=== PATIENT | female | born 1965 | race Caucasian/White ===

== ENCOUNTER 2017-08-21 10:16 | Outpatient (CLI) | payer MEDICARE, MEDICAID ==
--- NOTE | 2017-08-21 12:16 | CT ---
CT ANGIOGRAM OF THE HEAD: Date: 08-21-17 Comparison: 08-10-14 History: History of brain tumor and aneurysm, status post-surgery. History of seizures. Assess for r esidual aneurysm. Technique: Serial axial CT imaging is obtained at 5 mm intervals from vertex through skull base with out contrast. Then, following the intravenous administration of iodinated contrast media, serial axi al CT imaging obtained at 1.25 mm intervals from vertex through skull base. Coronal and sagittal 3D reformatted imaging obtained. FINDINGS: There is evidence of prior right occipital craniotomy, stable. There is no intracranial hemorrhage, midline shift, or mass effect. There is cerebellar volume loss laterally on the right, stable. Imaged paranasal sinuses/mastoid air cells well aerated. No displaced calvarial fracture. Post contrast imaging demonstrates patency of the distal vertebral arteries bilaterally. The left ve rtebral artery is dominant. The basilar artery and its branches are unremarkable. There is no sacula r aneurysm, high grade stenosis, or vascular occlusion involving the posterior circulation. The imaged extracranial ICA is unremarkable bilaterally. There is atherosclerotic calcification invo lving the cavernous segment of the internal carotid artery bilaterally. The A1 segment and M1 segment is patent bilaterally. The ICA bifurcation and MCA bifurcation appears unremarkable bilaterally. Distal LATESHA and MCA branches are patent. There is an aneurysm in the region of the anterior communicating artery, inseparable from the origin of the A2 segment on the right. On axial imaging this aneurysm measures approximately 4-5 mm in AP dimension, 4-5 mm in transverse dimension, and approximately 4 mm in craniocaudal dimension. Its nec k measures in the 3 mm range and its neck appears to span the distal aspect of the right A1 segment and proximal aspect of right A2 segment. When compared to the 2014 examination, this aneurysm measur ed approximately 4-5 mm x 4-5 x 3-4 mm, thus, not significantly changed. No new aneurysm is identified. On the post contrast images, there is a subtle area of rounded extraaxial enhancement abutting the b rocio of the connie laterally on right measuring 6-7 mm. This likely represents residual tumor, as seen on the 10-05-09 brain MRI. There is also a suggestion of abnormal enhancement in the internal audito ry canal on the right, best seen in the region of the porous acoustics, also seen on the prior brain MRI. IMPRESSION: 1. Findings suggesting a stable 4-5 mm aneurysm in the region of the anterior communicating artery j ust right of midline. No interval change when compared to the 2014 examination. 2. Subtle abnormal enhancement in the region of the right internal auditory canal. Nodular focus of enhancement right of midline adjacent to the connie. Findings are probably unchanged when compared to a 10-05-09 MRI. Follow up brain MRI could be performed to better assess probable residual tumor in th is region. POS: JD
[2017-08-21] MEDS ORDERED: Iopamidol 370 76% 100 ML VIAL ONE (13:01)
--- OUTSIDE RECORDS SUMMARY | 2017-08-23 05:16 | XMS | Clinical Summary ---
:1965 Author Organization [facility] Address [address] [place] [phone] Phone Care Team Providers Name Role Phone Arina Anthony Primary Care Provider tel Allergies Not on File Current Medications Not on file Active Problems Not on file Social History Tobacco Use Types Packs/Day Years Used Date Never Assessed Sex Assigned at Date Recorded Not on file Last Filed Vital Signs Not on file Plan of Treatment Date Type Specialty Care Team Description 08/28/2017 Office Visit Neurosurgery Ochoa Godoy MD [address] [place] [id number] Results Not on filefrom Last 3 Months Insurance Payer Benefit Plan / Group Subscriber ID Type Phone Address MEDICARE MEDICARE PART A AND B [id number] Medicare [place], [place] MEDICAID MEDICAID [id number] Medicaid [phone] [place] [id number]
== END 2017-08-21 10:17 | disposition home or self-care (01) ==
LOC: CT 10:16
PROVIDERS: ATTEND Psychiatry & Neurology Neurology
DX: I67.1 Cerebral aneurysm, nonruptured (principal)
CPT/HCPCS: 70496

== ENCOUNTER 2018-09-10 11:45 | Emergency (ER) | payer MEDICARE, MEDICAID ==
[2018-09-10] MEDS ORDERED: diphenhydrAMINE 50 MG/ML VIAL ONE (12:04)
[2018-09-10] MEDS ORDERED: Metoclopramide HCl 10 MG/2 ML VIAL ONE (12:04)
== END 2018-09-10 13:03 | disposition left against medical advice (07) ==
LOC: ERS 11:45
DX: R51 Headache (principal); R11.0 Nausea; G43.909 Migraine, unspecified, not intractable, without status migrainosus; J44.9 Chronic obstructive pulmonary disease, unspecified; I10 Essential (primary) hypertension; F41.9 Anxiety disorder, unspecified; F17.210 Nicotine dependence, cigarettes, uncomplicated; Z79.899 Other long term (current) drug therapy
CPT/HCPCS: 93005; 96365; 96375; J1200; J2765

== ENCOUNTER 2018-11-22 13:59 | Outpatient (CLI) | payer MEDICARE, MEDICAID | END 2018-11-22 14:00 | disposition home or self-care (01) | LOC: ULT 13:59 | PROVIDERS: ATTEND Internal Medicine | DX: I25.10 Atherosclerotic heart disease of native coronary artery without angina pectoris (principal); I08.3 Combined rheumatic disorders of mitral, aortic and tricuspid valves | CPT/HCPCS: 93306 ==

== ENCOUNTER 2019-01-23 15:34 | Emergency (ER) | payer MEDICARE, MEDICAID | END 2019-01-23 16:30 | disposition left against medical advice (07) | LOC: SCSER 15:34 | DX: G43.909 Migraine, unspecified, not intractable, without status migrainosus (principal); Z71.6 Tobacco abuse counseling; J44.9 Chronic obstructive pulmonary disease, unspecified; I10 Essential (primary) hypertension; F41.9 Anxiety disorder, unspecified; F17.210 Nicotine dependence, cigarettes, uncomplicated; Z79.899 Other long term (current) drug therapy; Z79.51 Long term (current) use of inhaled steroids | CPT/HCPCS: 99406 ==

== ENCOUNTER 2019-02-17 09:33 | Outpatient (CLI) | payer MEDICARE, MEDICAID ==
--- NOTE | 2019-02-17 11:41 | RAD ---
Skull radiograph series, less than 4 views CLINICAL HISTORY: MRI clearance FINDINGS: There is evidence of a right craniotomy flap with overlying stabilization hardware. Aneurysm clips project at the anterior suprasellar aspect of the cranial fossa. IMPRESSION: Metallic aneurysm clips project at the skull base. Prior to MR imaging, confirmation of M RI compatibility must be documented. accounting technician has been notified, and arrangements for acquiring documentation are being performed.
== END 2019-02-17 09:34 | disposition home or self-care (01) ==
LOC: MRI 09:33
PROVIDERS: ATTEND Nurse Practitioner Acute Care
DX: G40.209 Localization-related (focal) (partial) symptomatic epilepsy and epileptic syndromes with complex partial seizures, not intractable, without status epilepticus (principal); G43.909 Migraine, unspecified, not intractable, without status migrainosus; I67.1 Cerebral aneurysm, nonruptured; Z98.890 Other specified postprocedural states
CPT/HCPCS: 70250; 70553

== ENCOUNTER 2020-05-14 17:06 | Inpatient (IN) | payer MEDICARE, MEDICAID ==
[~2020-05-14 17:06] MED LIST: Iopamidol-370 76% 500 ML 1 ML ONE
[2020-05-14 18:14] LABS: #Basophils 0.1 thou/uL (0.0-0.2); #Eosinphils 0.1 thou/uL (0.0-0.7); #Lymphocytes 1.2 thou/uL (1.20-3.40); #Monocytes 0.8 thou/uL (0.11-0.59); #Neutrophils 7.3 thou/uL (1.40-6.50); %Basophils 0.6 % (0.0-1.0); %Eosinophils 0.9 % (0.0-10.0); %Lymphocytes 12.4 % (21.0-51.0); %Monocytes 8.5 % (0.0-10.0); %Neutrophils 77.6 % (42.0-75.0); Mean Corpuscular HGB CONC 30.9 g/dL (32.0-36.0); Mean Platelet Volume 6.6 fL (7.4-10.4); Platelet Count 250 thou/uL (130-400); RBC Distribution Width 14.3 % (11.5-14.5); Red Blood Cell (RBC) Count 2.98 mill/uL (4.20-5.40); White Blood Cell (WBC) Count 9.5 thou/uL (4.8-10.8)
[2020-05-14 18:31] LABS: Hypochromia SLIGHT = 6-15 cells (100X) (0-5/hpf); MDiff Complete? YES; Macrocytosis MODERATE=16-30 cells (100X) (0-5/hpf); Platelet Morphology Comment Appears Adequate; Polychromasia SLIGHT = 2-3 cells (100X) (0-2/hpf); Target Cells SLIGHT = 2-5 cells (100X) (0-1/hpf)
--- NOTE | 2020-05-14 18:40 | RAD ---
SINGLE VIEW OF THE CHEST: 05/14/20 COMPARISON: 10/01/14. HISTORY: Decreased oxygen saturation and panic attacks. FINDINGS: Single view of the chest shows a normal sized cardiomediastinal silhouette. There is no evidence of c onsolidation, mass, or pleural effusion. The bones are unremarkable. IMPRESSION: No evidence of acute cardiopulmonary disease. POS: EAA
--- NOTE | 2020-05-14 18:43 | CT ---
CT BRAIN WITHOUT CONTRAST: 05/14/20 COMPARISON: 08/05/14. HISTORY: Oxygen saturation of 43%. Memory loss. TECHNIQUE: Multiple contiguous axial images were obtained in a CT of the brain without contrast. FINDINGS: Postsurgical changes are seen in the right posterior fossa. There are aneurysm clips seen near the sk ull base and postsurgical changes are also seen in the right middle cranial fossa. There is no eviden ce of hydrocephalus, intracranial hemorrhage, or extra-axial fluid collections. No large confluent in farction is seen. The visualized paranasal sinuses and mastoid air cells are well aerated. IMPRESSION: No evidence of acute intracranial abnormality. POS: EAA
[2020-05-14 18:53] LABS: ALT (SGPT) 22 U/L (8-55); AST (SGOT) 31 U/L (5-34); Albumin 3.9 g/dL (3.5-5.0); Alkaline Phosphatase 79 U/L (40-110); Anion Gap 13 mmol/L (10-20); BUN (Urea Nitrogen) 8 mg/dL (9.8-20.1); Bilirubin, Total Less than 0.2 mg/dL (0.2-1.2); Calc. Creatinine Clearance 0 mL/min (70-130); Calcium 8.9 mg/dL (7.8-10.44); Carbon Dioxide 34 mmol/L (22-29); Chloride 94 mmol/L (98-107); Estimated GFR-MDRD 81; Globulin 2.8 g/dL (2.4-3.5); Glucose 137 mg/dL (70-105); Magnesium 1.8 mg/dL (1.6-2.6); Potassium 4.2 mmol/L (3.5-5.1); Protein, Total 6.7 g/dL (6.0-8.3); Sodium 137 mmol/L (136-145)
[2020-05-14 19:25] LABS: Actual Bicarbonate (HCO3a) 39.5 mEq/L (22-28); Analyzer IN Cardio ER; Base Excess (BEa) 8.7 mEq/L (-2.0 to +3.0); Calcium, Ionized (arterial) 1.16 mmol/L (1.12-1.30); Carboxyhemoglobin (COHb) 1.5 gm% (0.0-3.0); Hemoglobin (Hb) 9.4 g/dL (12.0-16.0); O2 Tension (PaO2), arterial 293.2 mmHg (80.0-100.0); Potassium - ABG Lab 3.56 mmol/L (3.70-5.30)
[2020-05-14] MEDS ORDERED: Dexamethasone 10 MG/ML VIAL ONE (19:32)
--- NOTE | 2020-05-14 20:07 | CT ---
CT arteriogram chest with IV contrast and 3-D imaging HISTORY: Chest pain. Dyspnea. COMPARISON: 11/24/2015. FINDINGS: There is good contrast opacification pulmonary arteries and thoracic aorta with normal bran sanchez of the great vessels at the aortic arch. Pulmonary trunk and main pulmonary arteries are mild to moderately distended. Lungs are hyperinflated. No focal mass or infiltrate. Minimal peripheral scarring. No pleural fluid, pneumothorax, or mediastinal adenopathy. IMPRESSION : No CT evidence of pulmonary embolus. CT findings of pulmonary artery hypertension. Pulmonary hyperinflation and other chronic-type finding s are stable
[2020-05-14] MEDS ORDERED: Albuterol 200 PUFF (6.7GM INHALER) ONE (20:12)
[2020-05-14] MEDS ORDERED: Magnesium 2 GM/50 ML BAG (IN WATER) ONE (20:21)
[2020-05-14 21:00] LABS: ALV-art Gradient -230.935 (0-20); CO2 Tension 109.9 mmHg (35.0-45.0); Puncture Site R BRACHIAL; pH, Arterial 7.17 (7.35-7.45)
[2020-05-14 21:02] LABS: Actual Bicarbonate (HCO3a) 30.8 mEq/L (22-28); Analyzer IN Cardio ER; Base Excess (BEa) 3.2 mEq/L (-2.0 to +3.0); Calcium, Ionized (arterial) 1.13 mmol/L (1.12-1.30); Carboxyhemoglobin (COHb) 1.9 gm% (0.0-3.0); Hemoglobin (Hb) 9.6 g/dL (12.0-16.0); O2 Tension (PaO2), arterial 63.5 mmHg (80.0-100.0); Potassium - ABG Lab 3.54 mmol/L (3.70-5.30); pH, Arterial 7.29 (7.35-7.45)
[2020-05-14 21:03] LABS: CO2 Tension 65.6 mmHg (35.0-45.0); Puncture Site R BRACHIAL
[2020-05-14] MEDS ORDERED: Acetaminophen 500 MG TAB ONE (21:08)
[2020-05-14 21:44] LABS: SARS-CoV-2 NAA Rapid Test Not Detected (NotDetected)
[2020-05-14 22:14] LABS: Bilirubin Negative (Negative); Blood, Urine Negative (Negative); Clarity Clear (Clear); Glucose, Urine (Dipstick) Normal (Negative); Ketone, Urine Negative (Negative); Leukocyte Negative Leu/uL (Negative); Nitrite Negative (Negative); Protein, Urine (Dipstick) Negative (Neg-Trace); Specific Gravity, Urine 1.019 (1.002-1.036); Urobilinogen Normal mg/dL (Less than 2)
--- NOTE | 2020-05-14 23:54 | PDOC.HHP ---
Hospitalist HPI - History of Present Illness shortness of breath History of Present Illness: This is a 55 year old female with past medical history of COPD, migraines, seizures, who presented to the ER with shortness of breath. The patient states that she had been feeling short of breath for the past two weeks. She takes spiriva, symbicort and advair daily and states she was compliant with her medicines. She is on multiple pain medications for migraines including hydrocodone and flexeril and went to her PCP today to discontinue these medications, however he sent her to the ER when her oxygen saturation was noted to be around 45%? The patient states that at baseline, she is typically able to walk one block without getting short of breath, but her shortness of breath progressed to at rest. She uses oxygen 2L as needed. She denies fevers, chills , runny nose, sore throat, sick contacts, recent travel history, or change in quality of her chronic cough. She denies productive cough. She denies COVID exposure. She quit smoking three days ago, but previously smoked one pack a day for over thirty years. ED Course: The patient presented to the ER with oxygen saturation of 98% on 2L. She was however noted to have intercostal retractions and diffuse wheezing on presentation. ABG showed a pH of 7.1, and PCO2 of 109. She was placed on BIPAP and given tylenol, 2 grams magnesium, albuterol MDI, 10 mg decadron and 1L of IV fluid. . Repeat ABG showed improvement with pH to 7.3, PCO2 to 65. Chest X ray was normal. CT head was normal. CTA showed pulmonary hypertension and no evidence of PE. The patient's mentation improved significantly and she was weaned down to 6L nasal cannula. Rapid COVID test in the ER was negative Hospitalist ROS - Review of Systems Constitutional: reports: other (weight loss 5 pounds in one month unintentionally). denies: fever, chills ENT: denies: ear pain, ear discharge Respiratory: reports: cough, shortness of breath, wheezing. denies: sputum Cardiovascular: denies: chest pain, palpitations, orthopnea, paroxysmal noc. dyspnea Gastrointestinal: denies: nausea, vomiting, abdominal pain, diarrhea, constipation Genitourinary: denies: dysuria, frequency Musculoskeletal: denies: neck pain, shoulder pain Skin: denies: rash, lesions Neurological: reports: seizures, other (migraines chronic) Hospitalist History - Past Medical History Other Medical History: COPD Seizures Migraines Hypertension Brain tumor removed - Past Surgical History Other Surgical History: Brain aneurysm repair 12/2017 Cholecystectomy Hysterectomy - Family History Other Family History: No hitsory of lung or heart problems in the family - Social History Smoking Status: Former smoker (quit three days ago, see HPI) Alcohol: reports: None Drugs: reports: none Living Situation: With Family (lives with son) - Exam General Appearance: NAD, awake alert General - other findings: patient appears to be thin and malnourished Eye: PERRL, anicteric sclera ENT: normocephalic atraumatic, no oropharyngeal lesions Neck: supple, no JVD Heart: RRR, no murmur, no gallops, no rubs Respiratory - other findings: scattered wheezing right upper lobe, diffusely diminished breath sounds Gastrointestinal: soft, non-tender, non-distended, normal bowel sounds Extremities: no cyanosis, no clubbing, no edema Skin: normal turgor, no lesions, no rashes Neurological: cranial nerve grossly intact, normal sensation to touch, no focal deficits, no new deficit Musculoskeletal: normal tone, normal strength, no muscle wasting Psychiatric: normal affect, normal behavior, A&O x 3, oriented to person, oriented to time Hospitalist Results - Labs Result Diagrams: 05/14/20 18:02 05/14/20 18:17 Lab results: WBC 9.5 thou/uL (4.8-10.8) 05/14/20 18:02 Hgb 11.0 g/dL (12.0-16.0) L 05/14/20 18:02 Hct 35.6 % (36.0-47.0) L 05/14/20 18:02 MCV 119.0 fL (78.0-98.0) H 05/14/20 18:02 Plt Count 250 thou/uL (130-400) 05/14/20 18:02 Neutrophils % 77.6 % (42.0-75.0) H 05/14/20 18:02 ABG pH 7.29 (7.35-7.45) L 05/14/20 20:30 ABG pCO2 65.6 mmHg (35.0-45.0) H* 05/14/20 20:30 ABG pO2 63.5 mmHg (80.0-100.0) L 05/14/20 20:30 Sodium 137 mmol/L (136-145) 05/14/20 18:17 Potassium 4.2 mmol/L (3.5-5.1) 05/14/20 18:17 Chloride 94 mmol/L (98-107) L 05/14/20 18:17 Carbon Dioxide 34 mmol/L (22-29) H 05/14/20 18:17 BUN 8 mg/dL (9.8-20.1) L 05/14/20 18:17 Creatinine 0.74 mg/dL (0.6-1.1) 05/14/20 18:17 Glucose 137 mg/dL (70-105) H 05/14/20 18:17 Lactic Acid 1.5 mmol/L (0.5-2.2) 05/14/20 18:02 Calcium 8.9 mg/dL (7.8-10.44) 05/14/20 18:17 Total Bilirubin Less than 0.2 mg/dL (0.2-1.2) L 05/14/20 18:17 AST 31 U/L (5-34) 05/14/20 18:17 ALT 22 U/L (8-55) 05/14/20 18:17 Alkaline Phosphatase 79 U/L (40-110) 05/14/20 18:17 Troponin I Less than 0.010 ng/mL (< 0.028) 05/14/20 18:17 B-Natriuretic Peptide 114.4 pg/mL (0-100) H 05/14/20 18:02 Serum Total Protein 6.7 g/dL (6.0-8.3) 05/14/20 18:17 Albumin 3.9 g/dL (3.5-5.0) 05/14/20 18:17 Urine Ketones Negative mg/dL (Negative) 05/14/20 22:01 Urine Blood Negative (Negative) 05/14/20 22:01 Urine Nitrite Negative (Negative) 05/14/20 22:01 Ur Leukocyte Esterase Negative Matt/uL (Negative) 05/14/20 22:01 - EKG Interpretation EKG: Q waves in lead III, AVF, V1-V4 Hospitalist H&P A/P - Plan Plan: CT head: no acute disease CTA: no PE. Pulmonary hypertension. Pulmonary hyperinflation Chest Xray: no acute disease This is a 55 year old female with past medical history of COPD on 2L of oxygen, seizures, who presents to the ER with severe shortness of breath, found to be in hypoxic/hypercapneic respiratory failure from COPD exacerbation Acute hypoxic/hypercapneic respiratory failure secondary to COPD exacerbation - she was placed on BIPAP with improvement in her blood gas to pCO2 of 65 and pH 7.3 - will continue IV steroids -utox positive for barbiturates and benzo - currently admitted to CCU since no IMCU beds, but consider transfer to tele if remains stable on nasal cannula - troponin slightly elevated, will check ECHO Chronic migraines - patient is on hydrocodone and flexeril - will hold these medications for now - consider neuro consult in am , pt follows with Dr. Frederick #History of seizures #History of brain aneurysm s/p clipping - continue phenytoin. Dilantin level is normal Macrocytic anemia - Hb 11, MCV 119, check folate/B12/TSH in the am DVT prophylaxis: lovenox Code status: full code
[2020-05-14] MEDS ORDERED: Promethazine 25 MG TAB PO PRN (23:56)
[2020-05-14] MEDS ORDERED: Bacteriostatic Water 30 ML VIAL FS PRN (23:57)
[2020-05-15] MEDS ORDERED: Albuterol Sulfate 1.25 MG/3 ML NEB EZPAP PRN (00:04)
[2020-05-15 00:46] LABS: Medtox Reader # READER 4
[2020-05-15 00:47] LABS: Amphetamine Not Detected (NotDetected); Barbiturates Screen Detected (NotDetected); Benzodiazepine Screen Detected (NotDetected); Cocaine Metabolite Screen Not Detected (NotDetected); Medtox Control Line Valid? VALID (VALID); Methadone Not Detected (NotDetected); Methamphetamine Not Detected (NotDetected); Opiate Screen Not Detected (NotDetected); Oxycodone Screen Not Detected (NotDetected); Phencyclidine (PCP) Not Detected (NotDetected); THC/Cannabinoid Screen Not Detected (NotDetected); Tricyclic Screen Not Detected (NotDetected)
[2020-05-15 01:24] LABS: CKMB 1.9 ng/mL (0-6.6)
[2020-05-15 07:03] LABS: Mean Corpuscular HGB CONC 31.1 g/dL (32.0-36.0); Mean Platelet Volume 5.9 fL (7.4-10.4); Platelet Count 334 thou/uL (130-400); RBC Distribution Width 14.5 % (11.5-14.5); Red Blood Cell (RBC) Count 2.71 mill/uL (4.20-5.40); White Blood Cell (WBC) Count 5.7 thou/uL (4.8-10.8)
[2020-05-15 07:24] LABS: BUN (Urea Nitrogen) 7 mg/dL (9.8-20.1); Calc. Creatinine Clearance 0 mL/min (70-130); Calcium 8.4 mg/dL (7.8-10.44); Estimated GFR-MDRD Greater than 90; Glucose 78 mg/dL (70-105)
[2020-05-15 07:32] LABS: Anion Gap 14 mmol/L (10-20); Carbon Dioxide 35 mmol/L (22-29); Chloride 97 mmol/L (98-107); Sodium 141 mmol/L (136-145)
[2020-05-15] MEDS ORDERED: methylPREDNISolone Sod Succ 40 MG VIAL ONE (07:44)
[2020-05-15] MEDS ORDERED: methylPREDNISolone Sod Succ 40 MG VIAL IVP SCH ×2 (07:45→09:00)
[2020-05-15 07:49] LABS: Thyroid Stimulating Hormone 0.7061 uIU/mL (0.35-4.94)
[2020-05-15] MEDS ORDERED: Acetaminophen 325 MG TAB ONE (12:35)
[2020-05-15] MEDS ORDERED: Ondansetron ODT 4 MG TAB PO PRN (13:03)
[2020-05-15] MEDS ORDERED: Cyclobenzaprine 10 MG TAB PO PRN (13:16)
[2020-05-15] MEDS: Mometasone 200 MCG/Formoterol 5 MCG 120 PUFF INHALER INH SCH ×2 (14:52→19:00)
[2020-05-15] MEDS: HYDROcodone/Acetaminophen 10/325 mg Tablet PO PRN ×2 (15:50→22:37)
[2020-05-15 17:47] VITALS: BMI 13.2
--- NOTE | 2020-05-15 18:59 | PDOC.HOSPP ---
- Subjective Subjective: Seen and examined. Patient states that she is feeling 100% better than when she arrived breathing comfortably on low-flow nasal cannula. Patient initially requiring BiPAP therapy on admission. Patient tells me that she quit smoking four days ago, admitted with COPD exacerbation I have added antibiotics to her steroids to treat COPD exacerbation. CT angiography of the chest was negative for pulmonary embolism. - Objective Vital Signs & Weight: Vital Signs (12 hours) Pulse Resp Pulse Ox 05/15/20 15:12 67 14 100 05/15/20 14:35 100 Weight Weight 70 lb 4.8 oz Result Diagrams: 05/15/20 06:50 05/15/20 06:50 Radiology Reviewed by me: Yes Hospitalist ROS - Review of Systems All other systems reviewed; all pertinent +/- noted in HPI/Subj - Medication Medications: Active Medications Generic Name Dose Route Start Last Admin Trade Name Freq PRN Reason Stop Dose Admin Hydrocodone Bitart/Acetaminophen 1 tab 05/15/20 13:03 05/15/20 15:50 [place] 10/325 PO 1 tab Q6H PRN Administration Moderate to Severe Pain (6-10) Albuterol/Ipratropium 3 ml 05/15/20 07:00 05/15/20 15:12 Duoneb NEB 3 ml [id number] KACEY Administration Levofloxacin 500 mg/ Device 100 mls @ 100 mls/hr 05/15/20 14:00 05/15/20 15: 51 IVPB 100 mls 1400 KACEY Administration Mometasone Furoate/Formoterol Fumar 2 puff 05/15/20 06:30 05/15/20 14:52 Dulera 200 Mcg/5 Mcg Inhaler INH Not Given BID-RT KACEY - Exam General Appearance: NAD, awake alert Eye: PERRL ENT: normocephalic atraumatic, moist mucosa Neck: supple, symmetric, no lymphadenopathy Heart: no murmur, no gallops, no rubs Respiratory: no rales, no ronchi, wheezes (few faint. Poor air movement.) Gastrointestinal: soft, non-tender, non-distended, no guarding, no rigidity Extremities: no edema Skin: no lesions, no rashes Neurological: cranial nerve grossly intact, no focal deficits Musculoskeletal: diffuse muscle atrophy Psychiatric: A&O x 3 Hosp A/P (1) COPD exacerbation Code(s): J44.1 - CHRONIC OBSTRUCTIVE PULMONARY DISEASE W (ACUTE) EXACERBATION Status: Acute (2) Shortness of breath Code(s): R06.02 - SHORTNESS OF BREATH Status: Acute (3) Hypoxia Code(s): R09.02 - HYPOXEMIA Status: Acute (4) Pain Code(s): R52 - PAIN, UNSPECIFIED Status: Acute (5) Seizure Status: Acute - Plan Plan: intermediate medical care floor, stable for downgrade to the medical unit patient is breathing comfortably at her normal level of supplemental O2 IV antibiotics IV steroids continue home inhaled medications as available for formulary breathing treatments continue other home medications as able blood pressure control blood sugar control G.I. prophylaxis DVT prophylaxis
[2020-05-15] MEDS: ALPRAZolam 0.5 MG TAB PO PRN (20:55)
[2020-05-16] MEDS: Mometasone 200 MCG/Formoterol 5 MCG 120 PUFF INHALER INH SCH (06:56)
[2020-05-16 08:04] VITALS: TEMP 98.1
[2020-05-16] MEDS: methylPREDNISolone Sod Succ 40 MG VIAL IVP SCH ×5 (09:39→12:28)
[2020-05-16] MEDS: HYDROcodone/Acetaminophen 10/325 mg Tablet PO PRN (10:55)
[2020-05-16] MEDS: ALPRAZolam 0.5 MG TAB PO PRN (10:55)
[2020-05-16 11:44] VITALS: BP 122/86
--- NOTE | 2020-05-16 15:31 | CON ---
DATE OF CONSULTATION: HISTORY OF PRESENT ILLNESS: Celia Bullard is a 55-year-old cachectic female, who was admitted to the hospital with COPD exacerbation. She is a rather poor historian. She states she came here to have her medicine adjusted. She was smoking until 2 weeks ago at least a pack a day. She has smoked for most of her life. She was found to be hypoxic. Denies any chest pain, chills, or sweats. A chest x-ray on admission was normal. PAST MEDICAL HISTORY: Pertinent for; 1. Chronic headaches. 2. Seizure disorder. 3. COPD. 4. Hypertension. PAST SURGICAL HISTORY: Multiple brain aneurysms, type-2 meningioma, hysterectomy. SOCIAL HISTORY: Lives with . Previously secretarial work, presently disabled. HOME MEDICINES: 1. Trazodone. 2. Prednisone. 3. Keppra 500. 4. Spiriva. 5. Advair 250. 6. Seroquel 300. 7. Dilantin 200 twice a day. 8. Losartan 50. 9. Levaquin 500. 10. Advair 250. 11. Xanax p.r.n. ALLERGIES: TRAMADOL, FENTANYL, MORPHINE. REVIEW OF SYSTEMS: Ten-point negative. PHYSICAL EXAMINATION: VITAL SIGNS: Cachectic female, whose sats are 98% on room air, respiration 20s, pulse 70, temperature 98, blood pressure 120/86. CHEST: Decreased breath sounds without any wheezing. CARDIAC: Normal S1, S2. No gallops. ABDOMEN: No masses. LABORATORY DATA: White count 5000, H and H of 10 and 32, platelet count is normal. Chemistry profile is unremarkable. Bicarb was 35. . BNP is normal. Coronavirus test was negative. She had blood gases done, which shows a pO2 of 63, pCO2 of 65, pH of 7.22. She was placed on BiPAP initially pCO2 was 109, pO2 was 293, pH 7.17 when she arrived to the hospital. IMPRESSION AND PLAN: 1. Smamo-fe-evejeks respiratory failure. 2. End-stage chronic obstructive pulmonary disease with respiratory acidosis. 3. Severe deconditioning. She is on adequate medicine pulmonary geiger, nebulizer 4 times a day, steroids, empiric antibiotics, Dulera. Unfortunately, nothing additional to offer except she is to refrain from smoking. This is a consultation note, 70 minutes, 50% direct patient care. Job ID: [id number]
[2020-05-16] MEDS ORDERED: Mometasone 200 MCG/Formoterol 5 MCG 120 PUFF INHALER INH SCH (18:30)
[2020-05-16] MEDS ORDERED: QUEtiapine Fumarate ER 50 MG TAB PO SCH (21:00)
[2020-05-16] MEDS ORDERED: traZODone HCl 50 MG TAB PO SCH (21:00)
[2020-05-16] MEDS ORDERED: levETIRAcetam 500 MG TAB PO SCH (21:00)
--- NOTE | 2020-05-17 02:55 | DIS ---
DATE OF ADMISSION: 05/14/2020 DATE OF DISCHARGE: 05/16/2020 REASON FOR HOSPITALIZATION: COPD exacerbation. PROCEDURES PERFORMED AND TREATMENTS RENDERED: The patient was admitted to the intermediate medical care floor for shortness of breath requiring BiPAP therapy initially on admission. The patient is a lifelong smoker and she has recently just stopped smoking 3 days prior to admission and she presented with respiratory distress. The patient was identified to have COPD with acute exacerbation and was started on maximum medical therapy. With the addition of antibiotics, steroids, breathing treatments, and supplemental oxygen, the patient had a good recovery. The patient returned to her baseline level of functional status and was recommended safe for discharge by Pulmonology, who evaluated the patient on 05/16/2020. Both Pulmonology and myself stressed the importance of smoking cessation. I explicitly informed her that if she is not able to quit smoking, she will likely suffer from future complications of tobacco, including COPD exacerbations in the future and may even result in a premature . The patient understands these risks and states that she is going to try to quit smoking. The patient having numerous other medical comorbidities, was recommended to continue all of her home medications at her current doses until these can be addressed or weaned off in the outpatient setting by her primary care physician. I sent a prescription for oral antibiotics and oral steroids to her preferred pharmacy. I did give her a refill on albuterol, which she requested. The patient states that she has all other home medications with refills at home. The patient already has home oxygen set up and is back to her baseline oxygen requirements. CONDITION ON DISCHARGE: Stable. SPECIFIC INSTRUCTIONS FOR THE PATIENT/FAMILY: 1. The patient recommended to complete a full course of oral antibiotics, oral steroids, and take all of her breathing medications as directed. 2. The patient is recommended to follow up with primary care physician in the next 5 to 7 days or return to acute care hospital immediately if unable to be seen. 3. The patient is recommended to follow up with Pulmonology in the outpatient setting, Dr. Almeida in the next 2 to 4 weeks. The patient recommended to abstain from tobacco use completely. 4. The patient is recommended to take all other home medications as directed until these can be adjusted by primary care physician in the outpatient setting. 5. The patient recommended to return to acute care hospital immediately if she is unable to comply with any of the previously mentioned steps or if her symptoms return, worsen, or any other new symptoms occur. TIME SPENT: Greater than 38 minutes spent coordinating care and discharge process for this patient. Job ID: [id number]
[2020-05-17] MEDS ORDERED: Losartan 25 MG TAB PO SCH (09:00)
[2020-05-17] MEDS ORDERED: TIOTROPIUM BROMIDE PO SCH (09:00)
== END 2020-05-16 13:35 | disposition home or self-care (01) | DRG 189 ==
LOC: ERS 17:06 → ERHOLD 21:18 → T4-A 05-15 14:35
PROVIDERS: ADMIT Internal Medicine; ATTEND Internal Medicine
PROC: 5A09357 Assistance with Respiratory Ventilation, Less than 24 Consecutive Hours, Continuous Positive Airway Pressure (ICD-10-PCS; principal; 2020-05-14)
DX: J96.21 Acute and chronic respiratory failure with hypoxia (principal); J44.1 Chronic obstructive pulmonary disease with (acute) exacerbation; E87.2 Acidosis; J96.22 Acute and chronic respiratory failure with hypercapnia; Z20.828 Contact with and (suspected) exposure to other viral communicable diseases; G43.909 Migraine, unspecified, not intractable, without status migrainosus; I10 Essential (primary) hypertension; F41.9 Anxiety disorder, unspecified; G40.909 Epilepsy, unspecified, not intractable, without status epilepticus; I27.20 Pulmonary hypertension, unspecified; D53.9 Nutritional anemia, unspecified; R53.81 Other malaise; Z87.891 Personal history of nicotine dependence; Z90.49 Acquired absence of other specified parts of digestive tract; Z71.6 Tobacco abuse counseling; Z90.710 Acquired absence of both cervix and uterus; Z86.69 Personal history of other diseases of the nervous system and sense organs; Z88.5 Allergy status to narcotic agent; Z88.8 Allergy status to other drugs, medicaments and biological substances
CPT/HCPCS: 36415; 70450; 71045; 71275; 80048; 80053; 80185; 80306; 81003; 82553; 82607; 82746; 82805; 83605; 83735; 83880; 84443; 84484; 85025; 85027; 87040; 93005; 94640; 94664; 94760; 96361; 96365; 96375; J1100; J1956; J2920; J3475; J7620; Q9967; U0002

== ENCOUNTER 2020-06-25 05:23 | Inpatient (IN) | payer MEDICARE, MEDICAID, OTHER ==
[2020-06-25 06:33] LABS: #Lymphocytes 0.8 thou/uL (1.20-3.40); #Monocytes 0.6 thou/uL (0.11-0.59); #Neutrophils 5.1 thou/uL (1.40-6.50); %Eosinophils 0.5 % (0.0-10.0); %Lymphocytes 12.5 % (21.0-51.0); %Monocytes 8.7 % (0.0-10.0); %Neutrophils 78.3 % (42.0-75.0); Hemoglobin 12.8 g/dL (12.0-16.0); Mean Corpuscular HGB CONC 30.6 g/dL (32.0-36.0); Mean Corpuscular Hemoglobin 32.7 pg (27.0-31.0); Mean Platelet Volume 7.7 fL (7.4-10.4); Platelet Count 166 thou/uL (130-400); RBC Distribution Width 14.2 % (11.5-14.5); Red Blood Cell (RBC) Count 3.92 mill/uL (4.20-5.40); White Blood Cell (WBC) Count 6.6 thou/uL (4.8-10.8)
[2020-06-25 06:43] LABS: Actual Bicarbonate (HCO3a) 44.4 mEq/L (22-28); Analyzer IN Cardio ER; Base Excess (BEa) 11.6 mEq/L (-2.0 to +3.0); Calcium, Ionized (arterial) 1.21 mmol/L (1.12-1.30); Carboxyhemoglobin (COHb) 6.4 gm% (0.0-3.0); Hemoglobin (Hb) 12.6 g/dL (12.0-16.0); Potassium - ABG Lab 4.06 mmol/L (3.70-5.30)
[2020-06-25 06:49] LABS: ALV-art Gradient -121.715 (0-20); CO2 Tension 119.9 mmHg (35.0-45.0); Puncture Site RBRACH; pH, Arterial 7.19 (7.35-7.45)
[2020-06-25 06:52] LABS: Bilirubin Negative (Negative); Blood, Urine Negative (Negative); Glucose, Urine (Dipstick) Negative (Negative); Ketone, Urine Negative (Negative); Leukocyte Negative (Negative); Nitrite Negative (Negative); Protein, Urine (Dipstick) Trace mg/dL (Neg-Trace); Urobilinogen 0.2 mg/dL (Less than 2)
[2020-06-25 06:53] LABS: Clarity Clear (Clear)
[2020-06-25 06:56] LABS: ALT (SGPT) 15 U/L (8-55); AST (SGOT) 28 U/L (5-34); Albumin 3.3 g/dL (3.5-5.0); Alkaline Phosphatase 89 U/L (40-110); Anion Gap 11 mmol/L (10-20); BUN (Urea Nitrogen) 10 mg/dL (9.8-20.1); Bilirubin, Total 0.2 mg/dL (0.2-1.2); Calc. Creatinine Clearance 0 mL/min (70-130); Calcium 8.3 mg/dL (7.8-10.44); Carbon Dioxide 37 mmol/L (22-29); Chloride 88 mmol/L (98-107); Estimated GFR-MDRD Greater than 90; Globulin 2.1 g/dL (2.4-3.5); Glucose 113 mg/dL (70-105); Potassium 4.4 mmol/L (3.5-5.1); Protein, Total 5.4 g/dL (6.0-8.3); Sodium 132 mmol/L (136-145)
[2020-06-25] MEDS ORDERED: methylPREDNISolone Sod Succ/PF 125 MG/2 ML VIAL ONE (08:06)
[2020-06-25] MEDS ORDERED: Ondansetron PF 4 MG/2 ML Vial IVP PRN (08:09)
--- NOTE | 2020-06-25 08:52 | CT ---
CT OF THE ENRRIQUE WITHOUT CONTRAST: INDICATION: History of seizures. COMPARISON: Prior exam dated 05/14/2020. FINDINGS: No definite acute infarct, hemorrhage, or hydrocephalus is present. The septum pellucidum and third ventricle are midline. The vascular clips seen within the region of the anterior right middle crania l fossa as well as the paraclinoid regions is stable appearing. Craniectomy change involving the rig ht occipital skull is stable appearing. No midline shift is evident. The paranasal sinuses are stephanie r. Mastoid air cells are clear. IMPRESSION: 1. No acute intracranial abnormality. 2. Stable postoperative change as above. POS: BH
--- NOTE | 2020-06-25 09:08 | RAD ---
CHEST 1 VIEW: Date: 06/25/2020 INDICATION: History of seizures and COPD. COMPARISON: Prior exam dated 05/14/2020. FINDINGS: The patient is rotated to the right side, limiting exam. There is COPD change. No consolidation is ev ident. No pleural effusion or pneumothorax evident. No acute osseous abnormality is evident. IMPRESSION: No acute cardiopulmonary abnormality. Stable COPD change. POS: BH
[2020-06-25 09:50] LABS: SARS-CoV-2 NAA Rapid Test Not Detected (NotDetected)
[2020-06-25 11:04] LABS: Actual Bicarbonate (HCO3a) 43.5 mEq/L (22-28); Base Excess (BEa) 12.9 mEq/L (-2.0 to +3.0); Calcium, Ionized (arterial) 1.19 mmol/L (1.12-1.30); Carboxyhemoglobin (COHb) 4.9 gm% (0.0-3.0); Hemoglobin (Hb) 13.1 g/dL (12.0-16.0); O2 Tension (PaO2), arterial 80.2 mmHg (80.0-100.0); Potassium - ABG Lab 4.42 mmol/L (3.70-5.30); pH, Arterial 7.29 (7.35-7.45)
[2020-06-25 11:17] LABS: ALV-art Gradient 89.625 (0-20); CO2 Tension 92.3 mmHg (35.0-45.0); Puncture Site RBRACH
[2020-06-25] MEDS: Famotidine/PF 20 mg/2ml Vial SLOW IVP SCH ×2 (11:30→20:45)
[2020-06-25] MEDS: methylPREDNISolone Sod Succ 40 MG VIAL IVP SCH ×3 (11:30→23:06)
[2020-06-25] MEDS ORDERED: levETIRAcetam In NaCl (Iso-Os) 1,000 MG in Premix Bag 1 BAG IVPB SCH (13:00)
--- NOTE | 2020-06-25 13:57 | CON ---
NEUROLOGY CONSULTATION DATE OF CONSULTATION: 06/25/2020 REASON FOR CONSULTATION: Altered mental status. HISTORY OF PRESENT ILLNESS: Ms. Celia Bullard is a 55-year-old female with medical history significant for seizure disorder, COPD, migraines, hypertension, depression, presented to the emergency room because of altered mental status and shortness of breath. The patient is unable to provide the history and history is obtained from review of the medical records per niece who has been her paper supervisor. She has been acting really confused and altered since morning and there was a concern she may have a seizure .She also has shortness of breath, so the other concern was COPD exacerbation, so EMS were called and she was brought to emergency room for further evaluation. In the emergency room, head CT was done, which was negative for acute intracranial abnormality. EKG showed normal sinus rhythm. She was admitted to CCU for further management of COPD and Neurology was consulted to help with the management of seizures. REVIEW OF SYSTEMS: Unobtainable due to patient's mental status. PAST MEDICAL HISTORY: 1. Seizure disorder. 2. Hypertension. 3. COPD. 4. Migraines. 5. Depression. SOCIAL HISTORY: There is no documented history of alcohol, illegal drug abuse. She lives with son. Denies smoking, illegal drug use. She is a former smoker. ALLERGIES: 1. IOHEXOL. 2. TRAMADOL. 3. FENTANYL. 4. MORPHINE. PAST SURGICAL HISTORY: Brain aneurysm repair in December 2017, cholecystectomy, hysterectomy. PHYSICAL EXAMINATION: VITAL SIGNS: Blood pressure 150/80, pulse 80, respiratory rate 18. CVS: Regular rate and rhythm. CHEST: Clear. ABDOMEN: Soft. NECK: Supple. NEUROLOGIC: Mental status; the patient is alert and oriented to person and place. She is extremely somnolent. She does not follow commands or maintain eye contact. Motor; cranial nerves, pupils 4 mm round and reactive to light. Face symmetric. Tongue midline. Moves neck in both direction. Hearing seems to be intact. Speech is clear. Motor; muscle tone and bulk are normal. Moving all 4 extremities equally and symmetrically. Sensory withdraws to nailbed pressure bilaterally. Cerebellar , did not cooperate with the exam. Gait deferred due to patient's safety reason. DATA REVIEWED: I reviewed the head CT which was negative for acute intracranial pathology. Labs are significant for blood pressure was 114/85, pulse 94, respiratory rate 18. ASSESSMENT AND PLAN: Ms. Celia Bullard is consulted for altered mental status most likely secondary to chronic obstructive pulmonary disease exacerbation; However, breakthrough seizure cannot be ruled out. On review of the patient's home regimen, she takes Keppra 500 mg twice daily and phenytoin 200 mg twice daily. Check phenytoin level. Recommend loading with Keppra 1 g IV now and then switching the home anticonvulsant regimen to IV until cleared by Speech since the patient is extremely somnolent. The anticonvulsant regimen should be Keppra 500 mg IV q.12 and fosphenytoin 200 mg IV q.12. Neuro checks every 4 hours. Ativan 2 mg IV for seizure greater than 2 minutes. Observe seizure precautions. Telemetry. Continue other home medications. Continue medical management per primary team and pulmonology. EEG to rule out underlying seizure activity. We will continue to follow. Thank you for the consult. Job ID: [id number] MTDD
--- NOTE | 2020-06-25 18:08 | CON ---
DATE OF CONSULTATION: HISTORY OF PRESENT ILLNESS: Celia Bullard is a 55-year-old cachectic female, who was seen in the ER with shortness of breath, and apparently, some kind of seizure activity, poor historian, cannot get additional information, she is on BiPAP, and has significant respiratory acidosis. She is in the ICU. Rapid coronavirus test was done, which is negative. PAST MEDICAL HISTORY: COPD, tobacco abuse, hypertension, seizure disorders, migraine, and depression. PAST SURGICAL HISTORY: Otherwise included right intertrochanteric femur fracture surgery and previous cholecystectomy. HOME MEDICATIONS: Include: 1. Xanax. 2. Advair. 3. Hydrocodone. 4. Losartan 50. 5. Dilantin 200. 6. Seroquel 300. 7. . 8. Spiriva. 9. Ventolin. 10. Keppra. 11. Prednisone. 12. Trazodone. ALLERGIES: MULTIPLE; TRAMADOL, FENTANYL, AND MORPHINE. REVIEW OF SYSTEMS: Difficult to obtain. PHYSICAL EXAMINATION: GENERAL: She opens her eyes when we asked her to verbalize. VITAL SIGNS: Blood pressure 120/80, pulse 80, saturations 96%, and respiratory rate 18. CHEST: Decreased breath sounds. No wheezing. CARDIAC: Normal S1, S2. No gallop. ABDOMEN: Soft. NEUROLOGIC: Encephalopathic, but moves all 4 extremities. LABORATORY AND DIAGNOSTIC DATA: White count 6000, H and H 12 and 41, platelet count is normal. PO2 is 200, pCO2 of 190, pH 7.19, this is on 3 L nasal O2. Lytes are normal. Total bicarb was 37. X-ray shows no acute infiltrates. CT brain was negative. IMPRESSION: 1. Acute on chronic respiratory failure. 2. Ongoing tobacco abuse. 3. Marked cachexia. 4. History of seizure disorders. 5. CT brain shows postop changes, otherwise no acute changes. PLAN: Continue BiPAP. Blood gas being ordered. Continue steroids, neb treatments. She becomes more lethargic, she is probably going to get intubated. She has seen Dr. Maya in office and will see early next week. This is a consultation note, 70 minutes, 50% direct patient care. Job ID: [id number]
[2020-06-25] MEDS: Mometasone 200 MCG/Formoterol 5 MCG 120 PUFF INHALER INH SCH (19:02)
[2020-06-25] MEDS: levETIRAcetam 500 MG TAB PO SCH (20:45)
[2020-06-25] MEDS ORDERED: Fosphenytoin Sodium 200 MG in Sodium Chloride 0.9% 50 ML IVPB SCH (21:00)
--- NOTE | 2020-06-25 21:18 | HP ---
CHIEF COMPLAINT: Confusion. HISTORY OF PRESENT ILLNESS: The patient is a 55-year-old female with history of COPD, hypertension, migraines, and seizure disorder, who was sent to the hospital by EMS in a confused state. EMS reported that they were called due to the patient being short of breath and confused this morning. The patient is not a reliable historian at this time. In the ER, the patient was found to be hypoxic and her ABG revealed severe respiratory acidosis with hypercarbia. She was awake enough to tolerate BiPAP. REVIEW OF SYSTEMS: Unable to obtain due to the patient's mental status. PAST MEDICAL HISTORY: As noted above. PAST SURGICAL HISTORY: Unobtainable at this time due to the patient's mental status. SOCIAL HISTORY: The patient does have history of alcohol and drug abuse. ALLERGIES: THE PATIENT IS ALLERGIC TO MULTIPLE MEDICATIONS INCLUDING MORPHINE, TRAMADOL, TORADOL, IV CONTRAST, AND IMITREX. PHYSICAL EXAMINATION: GENERAL: The patient is lethargic, but arousable. HEENT: Head is normocephalic and atraumatic. Extraocular muscles are intact. NECK: Supple. CHEST: Auscultation reveals wheezing bilaterally. CARDIOVASCULAR: Revealed tachycardia with regular rhythm. No murmurs, rubs, or gallops. ABDOMEN: Soft, nontender, nondistended. NEUROLOGIC: Not performed fully due to the patient's inability to participate; however, she is able to move all her upper extremities and her cranial nerves appear to be intact. ASSESSMENT: 1. [id number] respiratory failure with hypercarbia. 2. Respiratory acidosis. 3. Chronic obstructive pulmonary disease exacerbation. 4. Altered mental status, likely due to hypercarbia. 5. History of seizure disorder. PLAN: 1. The patient will be admitted to the intensive care unit. 2. We will continue management with BiPAP and repeat ABG earlier this afternoon. We will also initiate IV Solu-Medrol, scheduled DuoNeb, and IV levofloxacin. We will consult Pulmonology. The patient will be n.p.o. at this time until her mental status improves. Jojo for DVT prophylaxis. Job ID: [id number]
[2020-06-25] MEDS: ALPRAZolam 1 MG TAB PO PRN (21:22)
[2020-06-25] MEDS: traZODone HCl 50 MG TAB PO SCH (21:22)
[2020-06-26 04:45] LABS: Band 1 % (5-11); Hemoglobin 12.3 g/dL (12.0-16.0); Lymphocytes 12 % (21-51); MDiff Complete? YES; Macrocytosis SLIGHT = 6-15 cells (100X) (0-5/hpf); Mean Corpuscular HGB CONC 30.7 g/dL (32.0-36.0); Mean Corpuscular Hemoglobin 32.4 pg (27.0-31.0); Mean Platelet Volume 7.4 fL (7.4-10.4); Monocytes 8 % (0-10); Neutrophil 79 % (42-75); Platelet Count 189 thou/uL (130-400); RBC Distribution Width 14.2 % (11.5-14.5); White Blood Cell (WBC) Count 5.4 thou/uL (4.8-10.8)
[2020-06-26 05:08] LABS: Albumin 3.1 g/dL (3.5-5.0)
[2020-06-26 05:09] LABS: Calcium 8.7 mg/dL (7.8-10.44); Chloride 93 mmol/L (98-107); Potassium 5.3 mmol/L (3.5-5.1); Sodium 136 mmol/L (136-145)
[2020-06-26 05:11] LABS: Globulin 2.4 g/dL (2.4-3.5); Glucose 81 mg/dL (70-105); Protein, Total 5.5 g/dL (6.0-8.3)
[2020-06-26 05:12] LABS: Anion Gap 15 mmol/L (10-20); Bilirubin, Total 0.2 mg/dL (0.2-1.2); Carbon Dioxide 33 mmol/L (22-29)
[2020-06-26 05:13] LABS: Alkaline Phosphatase 86 U/L (40-110)
[2020-06-26 05:14] LABS: BUN (Urea Nitrogen) 9 mg/dL (9.8-20.1); Calc. Creatinine Clearance 51 mL/min (70-130); Estimated GFR-MDRD Greater than 90
[2020-06-26 05:15] LABS: AST (SGOT) 37 U/L (5-34)
[2020-06-26 05:16] LABS: ALT (SGPT) 22 U/L (8-55)
[2020-06-26] MEDS: methylPREDNISolone Sod Succ 40 MG VIAL IVP SCH ×3 (05:30→18:30)
[2020-06-26] MEDS: Mometasone 200 MCG/Formoterol 5 MCG 120 PUFF INHALER INH SCH ×2 (07:28→19:38)
[2020-06-26] MEDS: levETIRAcetam 500 MG TAB PO SCH ×2 (08:19→21:09)
[2020-06-26] MEDS: Famotidine/PF 20 mg/2ml Vial SLOW IVP SCH ×2 (08:19→21:08)
[2020-06-26] MEDS: ALPRAZolam 1 MG TAB PO PRN ×2 (08:23→21:07)
[2020-06-26] MEDS ORDERED: buPROPion 75 MG TAB PO SCH (09:00)
--- NOTE | 2020-06-26 10:30 | PRG ---
DATE OF SERVICE: 06/26/2020 SUBJECTIVE: This morning, she is awake, alert, and responsive. She is better. She is off the BiPAP. OBJECTIVE: VITAL SIGNS: Pulse 68, sats are 96% on 1 L, respiratory rate 20, blood pressure 140/91. CHEST: Decreased breath sounds. No wheezing. CARDIAC: Normal S1, S2. No gallops. ABDOMEN: No masses. IMPRESSION: Acute on chronic respiratory failure with marked respiratory acidosis. She can be transferred out of the ICU. She was told to completely refrain from smoking. She has history of seizure disorder. She is being followed by Neurology. Continue PT and supportive care. Job ID: [id number]
--- NOTE | 2020-06-26 11:56 | EKG ---
Test Reason : Blood Pressure : / mmHG Vent. Rate : 059 BPM Atrial Rate : 059 BPM P-R Int : 146 ms QRS Dur : 076 ms QT Int : 428 ms P-R-T Axes : 079 075 071 degrees QTc Int : 423 ms Sinus bradycardia Possible Left atrial enlargement Anterior infarct , age undetermined Abnormal ECG Confirmed by ABELINO JAMES ([id number]), supervising editor news reel STEPHANIE GONZALEZ ([id number]) on 06/26/2020 11:56:06 AM Referred By: Confirmed By:ABELINO JAMES
[2020-06-26] MEDS ORDERED: hydrALAZINE 20 MG/ML VIAL SLOW IVP PRN (12:23)
[2020-06-26] MEDS ORDERED: Fioricet 325/50/40 mg Tablet PO SCH (12:30)
[2020-06-26 13:46] VITALS: BMI 13.4
--- NOTE | 2020-06-26 18:54 | PDOC.HOSPP ---
- Subjective Subjective: c/o headache, lethargic. pt responded well with BiBAP. no further seizure activity noted. - Objective Vital Signs & Weight: Vital Signs (12 hours) Temp Pulse Resp BP Pulse Ox 06/26/20 15:54 98.3 F 83 17 138/94 H 90 L 06/26/20 15:24 99 06/26/20 14:46 78 22 H 96 06/26/20 08:00 98.3 F 98 06/26/20 07:28 68 23 H 97 Weight Admit Weight 68 lb 5.5 oz Weight 70 lb 12.288 oz Most Recent Monitor Data Heart Rate from ECG 74 NIBP 134/88 NIBP BP-Mean 103 Respiration from ECG 20 SpO2 92 I&O: 06/25/20 06/26/20 06/27/20 06:59 06:59 06:59 Intake Total 1200 460 Output Total 1951 150 Balance -751 310 Result Diagrams: 06/26/20 03:49 06/26/20 03:48 Hospitalist ROS - Medication Medications: Active Medications Generic Name Dose Route Start Last Admin Trade Name Lilibeth PRN Reason Stop Dose Admin Famotidine 20 mg 06/25/20 09:00 06/26/20 08:19 Pepcid SLOW IVP 20 mg Q12HR KACEY Administration Levetiracetam 250 mg 06/25/20 21:00 06/26/20 08:19 Keppra PO 250 mg BID KACEY Administration Methylprednisolone Sodium Succinate 40 mg 06/25/20 12:00 06/26/20 18:30 Solu-Medrol IVP 40 mg Q6HR KACEY Administration Mometasone Furoate/Formoterol Fumar 2 puff 06/25/20 18:30 06/26/20 07:28 Dulera 200 Mcg/5 Mcg Inhaler INH 2 puff BID-RT KACEY Administration Phenytoin Sodium 200 mg 06/25/20 21:00 06/26/20 08:21 Dilantin Er PO 200 mg BID KACEY Administration Sodium Chloride 10 ml 06/25/20 09:00 06/26/20 08:19 Flush - Normal Saline IVF 10 ml Q12HR KACEY Administration Trazodone HCl 100 mg 06/25/20 21:00 06/25/20 21:22 Desyrel PO 100 mg HS KACEY Administration - Exam General Appearance: NAD, awake alert Eye: PERRL, anicteric sclera ENT: normocephalic atraumatic Neck: supple, symmetric Heart: RRR Respiratory: CTAB, no wheezes, no rales, normal chest expansion Gastrointestinal: soft, non-tender Skin: normal turgor, no lesions, no rashes, tenting Neurological: cranial nerve grossly intact, no focal deficits Musculoskeletal: normal tone, normal strength Psychiatric: normal affect, A&O x 3 Hosp A/P - Plan Assessment/Plan: #Acute on chronic hypoxic hypercapneic respiratory failure - responded well with BiBAP #COPD - ongoing tobacco abuse #Seizure d/o #hx of brain aneurysm with s/p clipping #Polypharmacy 06/26/20 cont to wean steroid and O2 as tolerated, cont nebs treatment. avoid narcotic. cont AED. Seizure precaution. D/c Wellbutrin as it can lower seizure threshold. appreciate Neurology and pulmonology input rpt labs in AM
[2020-06-26] MEDS: traZODone HCl 50 MG TAB PO SCH (21:12)
[2020-06-26] MEDS ORDERED: ALPRAZolam 0.5 MG TAB PO SCH (22:30)
[2020-06-27] MEDS: methylPREDNISolone Sod Succ 40 MG VIAL IVP SCH ×2 (00:34→06:16)
[2020-06-27 06:06] LABS: #Lymphocytes 0.7 thou/uL (1.20-3.40); #Monocytes 0.3 thou/uL (0.11-0.59); #Neutrophils 3.8 thou/uL (1.40-6.50); %Eosinophils 0.2 % (0.0-10.0); %Lymphocytes 13.8 % (21.0-51.0); %Monocytes 7.1 % (0.0-10.0); %Neutrophils 78.9 % (42.0-75.0); Mean Corpuscular HGB CONC 30.2 g/dL (32.0-36.0); Mean Corpuscular Hemoglobin 32.2 pg (27.0-31.0); Mean Platelet Volume 6.7 fL (7.4-10.4); Platelet Count 190 thou/uL (130-400); RBC Distribution Width 14.4 % (11.5-14.5); Red Blood Cell (RBC) Count 3.42 mill/uL (4.20-5.40); White Blood Cell (WBC) Count 4.8 thou/uL (4.8-10.8)
[2020-06-27 06:22] LABS: Anion Gap 8 mmol/L (10-20); BUN (Urea Nitrogen) 9 mg/dL (9.8-20.1); Calc. Creatinine Clearance 58 mL/min (70-130); Calcium 8.1 mg/dL (7.8-10.44); Carbon Dioxide 36 mmol/L (22-29); Chloride 97 mmol/L (98-107); Estimated GFR-MDRD Greater than 90; Glucose 90 mg/dL (70-105); Magnesium 1.8 mg/dL (1.6-2.6); Potassium 4.2 mmol/L (3.5-5.1); Sodium 137 mmol/L (136-145)
[2020-06-27] MEDS: ALPRAZolam 1 MG TAB PO PRN (06:24)
[2020-06-27] MEDS: Mometasone 200 MCG/Formoterol 5 MCG 120 PUFF INHALER INH SCH ×2 (06:57→23:19)
[2020-06-27] MEDS: levETIRAcetam 500 MG TAB PO SCH ×2 (09:09→21:30)
[2020-06-27] MEDS: Famotidine/PF 20 mg/2ml Vial SLOW IVP SCH ×2 (09:11→21:31)
--- NOTE | 2020-06-27 11:57 | PRG ---
DATE OF SERVICE: 06/27/2020 SUBJECTIVE: This morning, she is awake, alert, and responsive. She is doing better, less short of breath. OBJECTIVE: VITAL SIGNS: Temperature 97, pulse 90, respirations are 16, saturations 100% on room air, blood pressure 140/91. CHEST: Decreased breath sounds. No wheezing. CARDIAC: Normal S1 and S2. No gallops. ABDOMEN: Soft. IMPRESSION: Chronic obstructive pulmonary disease exacerbation, bronchitis, major anxiety. PLAN: She appears to be stable. She is on p.o. antibiotic. She would like to go home tomorrow. If she remains stable, she can be discharged home. Job ID: [id number]
[2020-06-27] MEDS: ALPRAZolam 0.5 MG TAB PO PRN ×2 (13:01→21:30)
--- NOTE | 2020-06-27 17:34 | PDOC.HOSPP ---
- Subjective Subjective: pt is anxious request her Xanax to increase. breathing is better. no acute event overnight - Objective Vital Signs & Weight: Vital Signs (12 hours) Temp Pulse Resp BP Pulse Ox 06/27/20 17:27 98.1 F 64 15 139/64 06/27/20 11:45 98.6 F 89 17 174/107 H 95 06/27/20 08:00 95 06/27/20 07:18 98.7 F 98 16 149/91 H 98 Weight Admit Weight 68 lb 5.5 oz Weight 70 lb 12.294 oz Most Recent Monitor Data Heart Rate from ECG 74 NIBP 134/88 NIBP BP-Mean 103 Respiration from ECG 20 SpO2 92 I&O: 06/26/20 06/27/20 06/28/20 06:59 06:59 06:59 Intake Total 1200 1060 Output Total 1951 150 Balance -751 910 Result Diagrams: 06/27/20 05:42 06/27/20 05:42 Hospitalist ROS - Medication Medications: Active Medications Generic Name Dose Route Start Last Admin Trade Name Freq PRN Reason Stop Dose Admin Alprazolam 0.5 mg 06/27/20 11:13 06/27/20 13:01 Xanax PO 0.5 mg Q6H PRN Administration Anxiety Famotidine 20 mg 06/25/20 09:00 06/27/20 09:11 Pepcid SLOW IVP 20 mg Q12HR KACEY Administration Levetiracetam 250 mg 06/25/20 21:00 06/27/20 09:09 Keppra PO 250 mg BID KACEY Administration Levofloxacin 500 mg 06/27/20 06:00 06/27/20 06:16 Levaquin PO 07/02/20 06:01 500 mg 0600 KACEY Administration Mometasone Furoate/Formoterol Fumar 2 puff 06/25/20 18:30 06/27/20 06:57 Dulera 200 Mcg/5 Mcg Inhaler INH 2 puff BID-RT KACEY Administration Phenytoin Sodium 200 mg 06/25/20 21:00 06/27/20 11:47 Dilantin Er PO 200 mg BID KACEY Administration Quetiapine Fumarate 300 mg 06/26/20 21:00 06/26/20 21:10 Seroquel PO 300 mg HS KACEY Administration Sodium Chloride 10 ml 06/25/20 09:00 06/27/20 09:12 Flush - Normal Saline IVF 10 ml Q12HR KACEY Administration Trazodone HCl 100 mg 06/25/20 21:00 06/26/20 21:12 Desyrel PO 100 mg HS KACEY Administration Hosp A/P - Plan General Appearance: NAD, awake alert Eye: PERRL, anicteric sclera ENT: normocephalic atraumatic Neck: supple, symmetric Heart: RRR Respiratory: CTAB, no wheezes, no rales, normal chest expansion Gastrointestinal: soft, non-tender Skin: normal turgor, no lesions, no rashes, tenting Neurological: cranial nerve grossly intact, no focal deficits Musculoskeletal: normal tone, normal strength Psychiatric: normal affect, A&O x 3 Assessment/Plan: #Acute on chronic hypoxic hypercapneic respiratory failure - responded well with BiBAP #COPD - ongoing tobacco abuse #Seizure d/o #hx of brain aneurysm with s/p clipping #Polypharmacy #Anxiety disorder 06/27/20 Clinically improving, will transition to oral steroid and abx. Adjust Xanax doses. Minimize psychotropic medications as much as possible. Likely home tomorrow if she is continue to improve. 06/26/20 cont to wean steroid and O2 as tolerated, cont nebs treatment. avoid narcotic. cont AED. Seizure precaution. D/c Wellbutrin as it can lower seizure threshold. appreciate Neurology and pulmonology input rpt labs in AM
[2020-06-27] MEDS: traZODone HCl 50 MG TAB PO SCH (21:30)
[2020-06-27] MEDS: Fioricet 325/50/40 mg Tablet PO PRN (22:43)
[2020-06-28] MEDS: Fioricet 325/50/40 mg Tablet PO PRN ×2 (02:42→13:23)
[2020-06-28] MEDS ORDERED: ALPRAZolam 0.5 MG TAB PO SCH (03:00)
[2020-06-28] MEDS: Mometasone 200 MCG/Formoterol 5 MCG 120 PUFF INHALER INH SCH (07:49)
[2020-06-28] MEDS ORDERED: predniSONE 20 MG TAB PO SCH (08:00)
--- NOTE | 2020-06-28 08:49 | EEG ---
DATE OF SERVICE: 06/25/2020 ATTENDING PHYSICIAN: Carmen Taylor MD This EEG was performed using 24-channel Dahu video digital EEG machine with 24-disk electrodes. This was an extended 2 hours 6 minutes of inpatient video EEG recording. Digital analysis of the EEG was done for spike and seizure detection, which revealed no abnormalities. BACKGROUND: The posterior background rhythm was not observed. HYPERVENTILATION: Not performed. PHOTIC STIMULATION: Not performed. SLEEP: No stage change was observed. EEG DIAGNOSES: 1. Generalized irregular at times sharply contoured theta delta activity seen throughout the recording. 2. Absence of posterior background rhythm. CLINICAL INTERPRETATION: This EEG is consistent with moderate generalized nonspecific cerebral dysfunction. Job ID: [id number]
[2020-06-28] MEDS: Famotidine/PF 20 mg/2ml Vial SLOW IVP SCH (09:44)
[2020-06-28] MEDS: levETIRAcetam 500 MG TAB PO SCH (09:45)
[2020-06-28] MEDS: ALPRAZolam 0.5 MG TAB PO PRN (09:47)
[2020-06-28 11:46] VITALS: BP 145/97; TEMP 97.8
--- NOTE | 2020-06-28 13:17 | DIS ---
DATE OF ADMISSION: 06/25/2020 DATE OF DISCHARGE: 06/28/2020 DISCHARGE DIAGNOSES: 1. Acute on chronic hypoxic respiratory failure. 2. Chronic obstructive pulmonary disease exacerbation. 3. Seizure disorders. 4. Histories of brain aneurysm with status post clipping in Page. 5. Polypharmacy. 6. Severe anxiety disorder. CONSULTATIONS: 1. Neurology, Dr. Carmen Taylor. 2. Pulmonology, Dr. Juan Pablo Barrow. PROCEDURES: EEG, findings consistent with moderate generalized nonspecific cerebral dysfunction. IMAGING STUDIES: CT head, no acute intracranial abnormality. Chest x-ray, no acute cardiopulmonary process, stable COPD changes. HISTORY OF PRESENT ILLNESS AND BRIEF HOSPITAL COURSE: The patient is an unfortunate 55-year-old female with significant past medical histories of COPD, on home O2, hypertension, histories of migraine headache, seizure disorder, history of brain aneurysm with status post clipping, who presented to the ED with altered mental status. Workup showed the patient has severe respiratory acidosis secondary to hypercapnia on her ABG. She was subsequently admitted to [facility] for close monitor. The patient responded quite well with BiPAP. Pulmonology was consulted as well as Neurology. The patient was placed on IV Solu-Medrol and empiric antibiotics. She was weaned down to her home baseline O2 requirement. Review of her home medications, it appeared that the patient is on polypharmacy that may be attributed to her severe hypercapnia in settings of severe COPD. We have adjusted her medication. She had no seizure activities noted. At this time, the patient is cleared to discharge from Pulmonology standpoint. She will need to follow up with her PCP, and further simplify her home medication. DISPOSITION: The patient is stable to discharge home with home health. ACTIVITY: As tolerated. DIET: Cardiac, heart healthy diet. DISCHARGE MEDICATIONS: 1. New prescription, Levaquin 500 mg p.o. one tablet daily for 5 days, steroid dose pack use as directed. 2. Cyproheptadine 4 mg b.i.d. 3. Advair Diskus 500/50 one puff p.o. b.i.d. 4. Keppra 500 mg b.i.d. 5. Losartan 50 mg p.o. daily. 6. Dilantin 200 mg b.i.d. 7. Seroquel 300 mg at bedtime. 8. Zoloft 50 mg p.o. daily. 9. Spiriva 1 puff p.o. daily. 10. Ventolin inhaler one puff p.o. daily. 11. Xanax 2 mg t.i.d. p.r.n. 12. Percocet 5/325 mg tablet one tablet p.o. daily p.r.n. for pain. We recommend to discontinue Wellbutrin as this medication can lower seizure threshold as well as trazodone. We also recommended her to follow with her PCP to continue further simplify her regimen, and also recommended to decrease her Xanax doses as well. PHYSICAL EXAMINATION: VITAL SIGNS: Temperature 97.8, pulse 82, respiratory rate 16, O2 saturation 98% on 2 L, and blood pressure is 145/97. GENERAL APPEARANCE: The patient is alert and oriented x3, not in acute distress. She is a thin, frail lady. HEENT: Normocephalic, atraumatic. Mucous membranes moist. NECK: Supple. No lymphadenopathy. No JVD. CARDIOVASCULAR: Regular rate and rhythm. S1, S2 noted. No murmur. PULMONOLOGY: Scant expiratory wheezing noted. No crackle or rhonchi. ABDOMEN: Soft, nontender, nondistended. Positive bowel sounds. EXTREMITIES: No edema. NEUROLOGIC: Cranial nerves 2 through 12 grossly intact. No focal weakness. PSYCHIATRIC: The patient is alert and oriented x3. Normal affect, somewhat anxious. FOLLOWUP CARE: The patient advised to follow up with her PCP in 1 to 2 weeks, and follow up with her outpatient neurologist for further management of her history of seizure disorders. The patient was advised to take her medication as prescribed to complete the course of antibiotics as well as taper the prednisone. Continue to follow up closely with her PCP to further simplify her home medication. The patient was advised to return to ED if her symptom recurs or worsen. Discharge time spent 35 minutes. Job ID: [id number]
== END 2020-06-28 14:05 | disposition home health service (06) | DRG 189 ==
LOC: ERS 05:23 → CCU 08:19 → T4-B 06-26 11:08
PROVIDERS: ADMIT Internal Medicine; ATTEND Internal Medicine
PROC: 5A09457 Assistance with Respiratory Ventilation, 24-96 Consecutive Hours, Continuous Positive Airway Pressure (ICD-10-PCS; principal; 2020-06-25)
DX: J96.21 Acute and chronic respiratory failure with hypoxia (principal); J44.1 Chronic obstructive pulmonary disease with (acute) exacerbation; R64 Cachexia; Z68.1 Body mass index [BMI] 19.9 or less, adult; E87.2 Acidosis; Z20.828 Contact with and (suspected) exposure to other viral communicable diseases; G40.909 Epilepsy, unspecified, not intractable, without status epilepticus; F41.9 Anxiety disorder, unspecified; G43.909 Migraine, unspecified, not intractable, without status migrainosus; F17.210 Nicotine dependence, cigarettes, uncomplicated; J96.22 Acute and chronic respiratory failure with hypercapnia; I10 Essential (primary) hypertension; F32.9 Major depressive disorder, single episode, unspecified; Z88.5 Allergy status to narcotic agent; Z88.8 Allergy status to other drugs, medicaments and biological substances; Z79.51 Long term (current) use of inhaled steroids; Z79.899 Other long term (current) drug therapy; Z90.49 Acquired absence of other specified parts of digestive tract; Z99.81 Dependence on supplemental oxygen
CPT/HCPCS: 36415; 51701; 70450; 71045; 80048; 80053; 80185; 81003; 82805; 83735; 84484; 85007; 85025; 85027; 93005; 94640; 94660; 95712; 95816; 95819; 95957; 96374; J1953; J1956; J2920; J2930; J7512; J7620; S0028; U0002

== ENCOUNTER 2020-11-29 13:53 | Outpatient (CLI) | payer MEDICARE, MEDICAID ==
--- NOTE | 2020-11-29 14:13 | RAD ---
EXAM: Chest PA and lateral: HISTORY: Dyspnea. COMPARISON: 06/25/2020 FINDINGS: Heart: Normal cardiac silhouette Aorta: Atherosclerosis Pulmonary vessels: Normal Costophrenic angles: Costophrenic angles are clear. Lungs: No consolidation or masses. Hyperinflation with chronic changes. Pneumothorax: No pneumothorax Osseous structures: No osseous abnormalities IMPRESSION: 1. Atherosclerosis 2. COPD.
== END 2020-11-29 13:54 | disposition home or self-care (01) ==
LOC: BICRAD 13:53
PROVIDERS: ATTEND Internal Medicine Pulmonary Disease
DX: R06.00 Dyspnea, unspecified (principal); I70.90 Unspecified atherosclerosis; J44.9 Chronic obstructive pulmonary disease, unspecified
CPT/HCPCS: 71046

== ENCOUNTER 2021-01-18 13:21 | Emergency (ER) | payer MEDICARE, MEDICAID ==
[2021-01-18 14:19] LABS: #Basophils 0.1 thou/uL (0.0-0.2); #Lymphocytes 0.4 thou/uL (1.20-3.40); #Monocytes 0.2 thou/uL (0.11-0.59); #Neutrophils 6.4 thou/uL (1.40-6.50); %Basophils 1.9 % (0.0-1.0); %Eosinophils 0.1 % (0.0-10.0); %Lymphocytes 4.9 % (21.0-51.0); %Monocytes 2.2 % (0.0-10.0); %Neutrophils 90.8 % (42.0-75.0); Hemoglobin 12.7 g/dL (12.0-16.0); Mean Corpuscular Hemoglobin 31.4 pg (27.0-31.0); Mean Platelet Volume 6.4 fL (7.4-10.4); Platelet Count 326 thou/uL (130-400); Red Blood Cell (RBC) Count 4.06 mill/uL (4.20-5.40)
[2021-01-18] MEDS ORDERED: Acetaminophen 500 MG TAB ONE (14:21)
[2021-01-18 14:26] LABS: Bilirubin Negative (Negative); Blood, Urine Negative (Negative); Clarity Clear (Clear); Glucose, Urine (Dipstick) Normal (Negative); Ketone, Urine Negative (Negative); Leukocyte Negative Leu/uL (Negative); Nitrite Negative (Negative); Protein, Urine (Dipstick) Negative (Neg-Trace); Specific Gravity, Urine 1.005 (1.002-1.036); Urobilinogen Normal mg/dL (Less than 2); pH, Urine 6.5 (5.0-9.0)
[2021-01-18 14:42] LABS: ALT (SGPT) 18 U/L (8-55); AST (SGOT) 27 U/L (5-34); Alkaline Phosphatase 102 U/L (40-110); Anion Gap 16 mmol/L (10-20); BUN (Urea Nitrogen) 13 mg/dL (9.8-20.1); Bilirubin, Total Less than 0.2 mg/dL (0.2-1.2); Calc. Creatinine Clearance 0 mL/min (70-130); Calcium 8.8 mg/dL (7.8-10.44); Carbon Dioxide 35 mmol/L (22-29); Chloride 92 mmol/L (98-107); Globulin 2.8 g/dL (2.4-3.5); Glucose 119 mg/dL (70-105); Potassium 4.4 mmol/L (3.5-5.1); Protein, Total 6.8 g/dL (6.0-8.3); Sodium 139 mmol/L (136-145)
[2021-01-18] MEDS ORDERED: Morphine 4 MG/ML VIAL ONE (15:37)
[2021-01-18] MEDS ORDERED: hydrALAZINE 20 MG/ML VIAL SLOW IVP PRN (17:19)
[2021-01-18] MEDS ORDERED: Atorvastatin Calcium 40 MG TAB PO SCH (21:00)
[2021-01-19] MEDS ORDERED: Aspirin 81 mg Enteric Coated Tablet PO SCH (09:00)
[2021-01-19] MEDS ORDERED: Enoxaparin Sodium 30 MG/0.3 ML SYRINGE SC SCH (09:00)
== END 2021-01-18 17:25 | disposition left against medical advice (07) ==
LOC: ERS 13:21
DX: R55 Syncope and collapse (principal); H53.2 Diplopia; I10 Essential (primary) hypertension; J44.9 Chronic obstructive pulmonary disease, unspecified; F17.210 Nicotine dependence, cigarettes, uncomplicated; Z79.899 Other long term (current) drug therapy
CPT/HCPCS: 70450; 70486; 80053; 81003; 84484; 85025; 93005; 93306; 96374; J2270

== ENCOUNTER 2021-01-18 17:54 | Inpatient (IN) | payer MEDICARE, MEDICAID ==
[2021-01-18 23:41] VITALS: BMI 13.9
[2021-01-18] MEDS ORDERED: Ondansetron PF 4 MG/2 ML Vial IVP PRN (23:45)
[2021-01-18] MEDS ORDERED: Ondansetron ODT 4 MG TAB SL PRN (23:45)
[2021-01-19] MEDS: Nicotine 14 MG PATCH TD SCH (03:51)
[2021-01-19 05:36] LABS: SARS-CoV-2 PCR by NAA Not Detected (NotDetected)
[2021-01-19 06:11] LABS: #Basophils 0.1 thou/uL (0.0-0.2); #Eosinphils 0.1 thou/uL (0.0-0.7); #Lymphocytes 0.9 thou/uL (1.20-3.40); #Monocytes 0.7 thou/uL (0.11-0.59); #Neutrophils 5.6 thou/uL (1.40-6.50); %Basophils 0.8 % (0.0-1.0); %Lymphocytes 11.9 % (21.0-51.0); %Monocytes 9.8 % (0.0-10.0); %Neutrophils 76.5 % (42.0-75.0); Hemoglobin 12.2 g/dL (12.0-16.0); Mean Corpuscular HGB CONC 32.1 g/dL (32.0-36.0); Mean Corpuscular Hemoglobin 32.2 pg (27.0-31.0); Platelet Count 284 thou/uL (130-400); RBC Distribution Width 16.1 % (11.5-14.5); Red Blood Cell (RBC) Count 3.79 mill/uL (4.20-5.40); White Blood Cell (WBC) Count 7.3 thou/uL (4.8-10.8)
[2021-01-19 06:31] LABS: Lactic Acid 0.5 mmol/L (0.5-2.2)
[2021-01-19 06:34] LABS: Anion Gap 12 mmol/L (10-20); BUN (Urea Nitrogen) 8 mg/dL (9.8-20.1); CK (CPK) 41 U/L (29-168); Calc. Creatinine Clearance 60 mL/min (70-130); Calcium 8.1 mg/dL (7.8-10.44); Carbon Dioxide 32 mmol/L (22-29); Chloride 95 mmol/L (98-107); Glucose 87 mg/dL (70-105); Magnesium 1.5 mg/dL (1.6-2.6); Potassium 3.4 mmol/L (3.5-5.1); Sodium 136 mmol/L (136-145)
[2021-01-19 06:42] LABS: Alcohol Less than 10 mg/dL (Less than 10); Cardiac Risk 2.9 (Less than 4.5); Cholesterol 179 mg/dl (< 200 Desired); HDL Cholesterol 62 mg/dL (>60 Neg Risk); LDL Cholesterol, Calculated 98 mg/dL; Triglycerides 93 mg/dL (Less than 150)
[2021-01-19 08:00] LABS: Amphetamine Not Detected (NotDetected); Benzodiazepine Screen Detected (NotDetected); Cocaine Metabolite Screen Not Detected (NotDetected); Medtox Reader # READER 1; Methamphetamine Not Detected (NotDetected); Opiate Screen Detected (NotDetected); Phencyclidine (PCP) Not Detected (NotDetected); THC/Cannabinoid Screen Not Detected (NotDetected)
[2021-01-19 08:01] LABS: Barbiturates Screen Detected (NotDetected); Medtox Control Line Valid? VALID (VALID); Methadone Not Detected (NotDetected); Oxycodone Screen Not Detected (NotDetected); Tricyclic Screen Not Detected (NotDetected)
[2021-01-19] MEDS ORDERED: Sodium Chloride 0.65% Nasal 44 ML BOT EA NARE PRN (08:05)
[2021-01-19] MEDS ORDERED: Loperamide HCl 2 MG CAP PO PRN (08:05)
[2021-01-19] MEDS ORDERED: Calcium Carbonate 500 MG ChewTAB PO PRN (08:05)
[2021-01-19] MEDS ORDERED: GUAIFENESIN SF SOLN 200 MG/10 ML UDCUP PO PRN (08:05)
[2021-01-19] MEDS ORDERED: Senokot S 8.6-50 MG TAB PO PRN (08:05)
[2021-01-19] MEDS ORDERED: Bisacodyl 5 MG TAB PO PRN (08:05)
[2021-01-19] MEDS ORDERED: Ondansetron ODT 4 MG TAB PO PRN (08:05)
[2021-01-19] MEDS ORDERED: Ondansetron PF 4 MG/2 ML Vial IVP PRN (08:05)
[2021-01-19] MEDS ORDERED: Zolpidem Tartrate 5 MG TAB PO PRN (08:05)
[2021-01-19] MEDS ORDERED: Loratadine 10 MG TAB PO PRN (08:05)
[2021-01-19] MEDS ORDERED: hydrALAZINE 20 MG/ML VIAL SLOW IVP PRN (08:05)
[2021-01-19] MEDS ORDERED: Cepastat Lozenges 1 LOZ PO PRN (08:05)
[2021-01-19] MEDS ORDERED: Potassium Chloride 20 MEQ TAB PO SCH (08:15)
[2021-01-19] MEDS ORDERED: Magnesium Sulfate 3 GM in Sodium Chloride 0.9% 100 ML IVPB SCH (08:15)
[2021-01-19] MEDS: Aspirin 81 mg Enteric Coated Tablet PO SCH (09:08)
[2021-01-19] MEDS ORDERED: Ketorolac Tromethamine 30 MG/ML VIAL IVP PRN (09:54)
[2021-01-19] MEDS ORDERED: Acetaminophen 325 MG TAB PO PRN (11:41)
[2021-01-19] MEDS: ALPRAZolam 1 MG TAB PO PRN ×2 (12:38→22:09)
[2021-01-19] MEDS: HYDROcodone/Acetaminophen 5/325 mg Tablet PO PRN (18:18)
[2021-01-19] MEDS: Mometasone 100 MCG/PUFF (1 INHALER) INH SCH (18:38)
[2021-01-19] MEDS ORDERED: FLU VACC QS2020-21(6MOS UP)/PF 60 MCG/0.5 ML SYRINGE IM ONE (21:00)
[2021-01-19] MEDS: levETIRAcetam 500 MG TAB PO SCH (21:48)
[2021-01-19] MEDS: Atorvastatin Calcium 40 MG TAB PO SCH (21:48)
[2021-01-19] MEDS: Cyproheptadine 4 MG TAB PO SCH (21:54)
[2021-01-20] MEDS: Cyclobenzaprine 10 MG TAB PO SCH ×2 (00:52→21:26)
[2021-01-20] MEDS: Nicotine 14 MG PATCH TD SCH (04:07)
[2021-01-20] MEDS: Levothyroxine Sodium 50 MCG TAB PO SCH (06:31)
[2021-01-20] MEDS: Mometasone 100 MCG/PUFF (1 INHALER) INH SCH ×2 (06:43→19:04)
[2021-01-20] MEDS: levETIRAcetam 500 MG TAB PO SCH ×2 (08:57→21:26)
[2021-01-20] MEDS: HYDROcodone/Acetaminophen 5/325 mg Tablet PO PRN (08:57)
[2021-01-20] MEDS: Losartan 25 MG TAB PO SCH (08:59)
[2021-01-20] MEDS: ALPRAZolam 1 MG TAB PO PRN ×2 (08:59→21:33)
[2021-01-20] MEDS: predniSONE 5 MG TAB PO SCH (09:01)
[2021-01-20] MEDS: Cyproheptadine 4 MG TAB PO SCH ×2 (09:01→21:27)
[2021-01-20] MEDS: Morphine 2 MG/ML VIAL SLOW IVP PRN ×3 (11:53→20:43)
[2021-01-20] MEDS: Aspirin 81 mg Enteric Coated Tablet PO SCH (11:53)
[2021-01-20] MEDS: Atorvastatin Calcium 40 MG TAB PO SCH (21:26)
[2021-01-21] MEDS: Nicotine 14 MG PATCH TD SCH (03:46)
[2021-01-21] MEDS: Levothyroxine Sodium 50 MCG TAB PO SCH (05:14)
[2021-01-21] MEDS: Mometasone 100 MCG/PUFF (1 INHALER) INH SCH ×2 (07:41→18:41)
[2021-01-21] MEDS: predniSONE 5 MG TAB PO SCH (08:32)
[2021-01-21] MEDS: pyridOXINE 50 MG (B6) TAB PO SCH (08:32)
[2021-01-21] MEDS: Morphine 2 MG/ML VIAL SLOW IVP PRN ×3 (08:32→17:42)
[2021-01-21] MEDS: levETIRAcetam 500 MG TAB PO SCH ×2 (08:32→19:57)
[2021-01-21] MEDS: Folic Acid 1 MG TAB PO SCH (08:32)
[2021-01-21] MEDS: Cyproheptadine 4 MG TAB PO SCH ×2 (08:32→20:02)
[2021-01-21] MEDS: Losartan 25 MG TAB PO SCH (08:32)
[2021-01-21] MEDS: Cyanocobalamin (Vitamin B-12) 1,000 MCG TAB PO SCH (08:32)
[2021-01-21] MEDS: Aspirin 81 mg Enteric Coated Tablet PO SCH (08:32)
[2021-01-21] MEDS: ALPRAZolam 1 MG TAB PO PRN ×2 (08:36→19:57)
[2021-01-21] MEDS: Calcium Carbonate 600 MG + Vit D TAB PO SCH (17:42)
[2021-01-21] MEDS: Senokot S 8.6-50 MG TAB PO SCH (19:56)
[2021-01-21] MEDS: Cyclobenzaprine 10 MG TAB PO SCH (19:57)
[2021-01-21] MEDS: Atorvastatin Calcium 40 MG TAB PO SCH (19:57)
[2021-01-22] MEDS: Nicotine 14 MG PATCH TD SCH (02:53)
[2021-01-22] MEDS: Morphine 2 MG/ML VIAL SLOW IVP PRN ×5 (02:53→22:08)
[2021-01-22] MEDS: Levothyroxine Sodium 50 MCG TAB PO SCH (05:03)
[2021-01-22 05:07] LABS: #Eosinphils 0.2 thou/uL (0.0-0.7); #Lymphocytes 0.9 thou/uL (1.20-3.40); #Monocytes 0.9 thou/uL (0.11-0.59); #Neutrophils 5.5 thou/uL (1.40-6.50); %Basophils 0.2 % (0.0-1.0); %Eosinophils 2.2 % (0.0-10.0); %Lymphocytes 11.9 % (21.0-51.0); %Monocytes 11.6 % (0.0-10.0); %Neutrophils 74.1 % (42.0-75.0); Hemoglobin 11.5 g/dL (12.0-16.0); Mean Corpuscular HGB CONC 32.5 g/dL (32.0-36.0); Mean Corpuscular Hemoglobin 33.5 pg (27.0-31.0); Mean Platelet Volume 6.3 fL (7.4-10.4); Platelet Count 241 thou/uL (130-400); Red Blood Cell (RBC) Count 3.43 mill/uL (4.20-5.40); White Blood Cell (WBC) Count 7.5 thou/uL (4.8-10.8)
[2021-01-22 05:27] LABS: Anion Gap 13 mmol/L (10-20); BUN (Urea Nitrogen) 10 mg/dL (9.8-20.1); Calc. Creatinine Clearance 59 mL/min (70-130); Calcium 8.7 mg/dL (7.8-10.44); Carbon Dioxide 29 mmol/L (22-29); Chloride 100 mmol/L (98-107); Glucose 111 mg/dL (70-105); Magnesium 1.7 mg/dL (1.6-2.6); Phosphorus 4.2 mg/dL (2.3-4.7); Potassium 4.3 mmol/L (3.5-5.1); Sodium 138 mmol/L (136-145)
[2021-01-22] MEDS: HYDROcodone/Acetaminophen 5/325 mg Tablet PO PRN ×2 (06:09→14:12)
[2021-01-22] MEDS: Mometasone 100 MCG/PUFF (1 INHALER) INH SCH ×2 (07:41→18:41)
[2021-01-22] MEDS: Cyanocobalamin (Vitamin B-12) 1,000 MCG TAB PO SCH (09:31)
[2021-01-22] MEDS: Senokot S 8.6-50 MG TAB PO SCH ×2 (09:31→21:19)
[2021-01-22] MEDS: Losartan 25 MG TAB PO SCH (09:31)
[2021-01-22] MEDS: Cyproheptadine 4 MG TAB PO SCH ×2 (09:31→21:19)
[2021-01-22] MEDS: Aspirin 81 mg Enteric Coated Tablet PO SCH (09:31)
[2021-01-22] MEDS: Calcium Carbonate 600 MG + Vit D TAB PO SCH ×2 (09:31→17:12)
[2021-01-22] MEDS: Folic Acid 1 MG TAB PO SCH (09:31)
[2021-01-22] MEDS: levETIRAcetam 500 MG TAB PO SCH ×2 (09:31→21:19)
[2021-01-22] MEDS: predniSONE 5 MG TAB PO SCH (09:31)
[2021-01-22] MEDS: pyridOXINE 50 MG (B6) TAB PO SCH (09:31)
[2021-01-22] MEDS: ALPRAZolam 1 MG TAB PO PRN ×2 (13:00→21:19)
[2021-01-22] MEDS: Atorvastatin Calcium 40 MG TAB PO SCH (21:19)
[2021-01-22] MEDS: Cyclobenzaprine 10 MG TAB PO SCH (21:19)
[2021-01-23] MEDS: Morphine 2 MG/ML VIAL SLOW IVP PRN ×2 (03:08→08:38)
[2021-01-23] MEDS: Nicotine 14 MG PATCH TD SCH (03:09)
[2021-01-23] MEDS: ALPRAZolam 1 MG TAB PO PRN (05:15)
[2021-01-23] MEDS: Levothyroxine Sodium 50 MCG TAB PO SCH (05:15)
[2021-01-23] MEDS: HYDROcodone/Acetaminophen 5/325 mg Tablet PO PRN (05:20)
[2021-01-23] MEDS: Mometasone 100 MCG/PUFF (1 INHALER) INH SCH (08:10)
[2021-01-23] MEDS: Cyanocobalamin (Vitamin B-12) 1,000 MCG TAB PO SCH (08:23)
[2021-01-23] MEDS: Calcium Carbonate 600 MG + Vit D TAB PO SCH (08:23)
[2021-01-23] MEDS: Aspirin 81 mg Enteric Coated Tablet PO SCH (08:23)
[2021-01-23 08:24] VITALS: BP 131/78; TEMP 97.4
[2021-01-23] MEDS: predniSONE 5 MG TAB PO SCH (08:24)
[2021-01-23] MEDS: levETIRAcetam 500 MG TAB PO SCH (08:24)
[2021-01-23] MEDS: Senokot S 8.6-50 MG TAB PO SCH (08:24)
[2021-01-23] MEDS: Cyproheptadine 4 MG TAB PO SCH (08:24)
[2021-01-23] MEDS: pyridOXINE 50 MG (B6) TAB PO SCH (08:24)
[2021-01-23] MEDS: Folic Acid 1 MG TAB PO SCH (08:24)
[2021-01-23] MEDS: Losartan 25 MG TAB PO SCH (08:24)
== END 2021-01-23 12:04 | disposition home health service (06) | DRG 92 ==
LOC: ERS 17:54 → 2SE 21:58 → OBSVTOIN 01-19 17:44
PROVIDERS: ADMIT Internal Medicine; ATTEND Internal Medicine
DX: R27.0 Ataxia, unspecified (principal); E44.0 Moderate protein-calorie malnutrition; J96.11 Chronic respiratory failure with hypoxia; Z68.1 Body mass index [BMI] 19.9 or less, adult; Z20.822 Contact with and (suspected) exposure to COVID-19; R55 Syncope and collapse; G40.909 Epilepsy, unspecified, not intractable, without status epilepticus; R29.6 Repeated falls; F17.210 Nicotine dependence, cigarettes, uncomplicated; Z96.649 Presence of unspecified artificial hip joint; G43.909 Migraine, unspecified, not intractable, without status migrainosus; I10 Essential (primary) hypertension; J44.9 Chronic obstructive pulmonary disease, unspecified; E78.5 Hyperlipidemia, unspecified; R53.1 Weakness; E86.0 Dehydration; D53.9 Nutritional anemia, unspecified; E87.6 Hypokalemia; E83.42 Hypomagnesemia; Z88.5 Allergy status to narcotic agent; Z88.8 Allergy status to other drugs, medicaments and biological substances; Z79.51 Long term (current) use of inhaled steroids; Z79.52 Long term (current) use of systemic steroids; Z79.899 Other long term (current) drug therapy; Z99.81 Dependence on supplemental oxygen; Z90.710 Acquired absence of both cervix and uterus
CPT/HCPCS: 36415; 70450; 70486; 70551; 71046; 80048; 80053; 80061; 80177; 80306; 80307; 81003; 82550; 83605; 83735; 84100; 84146; 84443; 84484; 85025; 87635; 93005; 93306; 93880; 94640; 95712; 95819; 95957; 96365; 96375; 99284; G0378; J0360; J2270; J3475; J3490; J7512; J7620; U0003; U0005

== ENCOUNTER 2021-02-17 21:20 | Emergency (ER) | payer MEDICARE, MEDICAID ==
[2021-02-17 22:20] LABS: #Eosinphils 0.1 thou/uL (0.0-0.7); #Lymphocytes 1.1 thou/uL (1.20-3.40); #Monocytes 0.8 thou/uL (0.11-0.59); #Neutrophils 7.1 thou/uL (1.40-6.50); %Basophils 0.5 % (0.0-1.0); %Eosinophils 0.8 % (0.0-10.0); %Lymphocytes 11.9 % (21.0-51.0); %Monocytes 8.8 % (0.0-10.0); Hemoglobin 12.2 g/dL (12.0-16.0); Mean Corpuscular HGB CONC 31.4 g/dL (32.0-36.0); Mean Corpuscular Hemoglobin 32.4 pg (27.0-31.0); Mean Platelet Volume 7.2 fL (7.4-10.4); Platelet Count 181 thou/uL (130-400); RBC Distribution Width 15.7 % (11.5-14.5); Red Blood Cell (RBC) Count 3.78 mill/uL (4.20-5.40); White Blood Cell (WBC) Count 9.1 thou/uL (4.8-10.8)
[2021-02-17 23:08] LABS: Albumin 3.9 g/dL (3.5-5.0)
[2021-02-17 23:10] LABS: Calcium 7.9 mg/dL (7.8-10.44); Chloride 101 mmol/L (98-107); Potassium 3.8 mmol/L (3.5-5.1); Sodium 142 mmol/L (136-145)
[2021-02-17 23:11] LABS: Globulin 2.7 g/dL (2.4-3.5); Glucose 140 mg/dL (70-105); Protein, Total 6.6 g/dL (6.0-8.3)
[2021-02-17 23:12] LABS: Anion Gap 18 mmol/L (10-20); Carbon Dioxide 27 mmol/L (22-29)
[2021-02-17 23:13] LABS: Bilirubin, Total Less than 0.2 mg/dL (0.2-1.2)
[2021-02-17 23:14] LABS: Alkaline Phosphatase 96 U/L (40-110); Calc. Creatinine Clearance 0 mL/min (70-130)
[2021-02-17 23:15] LABS: BUN (Urea Nitrogen) 11 mg/dL (9.8-20.1)
[2021-02-17 23:16] LABS: AST (SGOT) 36 U/L (5-34)
[2021-02-17 23:17] LABS: ALT (SGPT) 15 U/L (8-55)
[2021-02-17 23:50] LABS: Acetaminophen Less than 6.0 mcg/mL (10.0-30.0); Alcohol Less than 10 mg/dL (Less than 10); Salicylate 24.2 mg/dL (15.0-30.0)
== END 2021-02-18 00:45 | disposition home or self-care (01) ==
LOC: ERS 21:20
DX: S80.12XA Contusion of left lower leg, initial encounter (principal); R29.6 Repeated falls; I10 Essential (primary) hypertension; J44.9 Chronic obstructive pulmonary disease, unspecified; F17.210 Nicotine dependence, cigarettes, uncomplicated; Z79.899 Other long term (current) drug therapy; W18.30XA Fall on same level, unspecified, initial encounter; Y92.009 Unspecified place in unspecified non-institutional (private) residence as the place of occurrence of the external cause
CPT/HCPCS: 36415; 70450; 80053; 80307; 84484; 85025; 93005; 94760

== ENCOUNTER 2021-03-04 07:24 | Inpatient (IN) | payer MEDICARE, MEDICAID ==
[2021-03-04 09:14] LABS: ALT (SGPT) 15 U/L (8-55); AST (SGOT) 24 U/L (5-34); Albumin 3.8 g/dL (3.5-5.0); Alkaline Phosphatase 97 U/L (40-110); Anion Gap 14 mmol/L (10-20); BUN (Urea Nitrogen) 7 mg/dL (9.8-20.1); Bilirubin, Total Less than 0.2 mg/dL (0.2-1.2); Calc. Creatinine Clearance 0 mL/min (70-130); Calcium 8.6 mg/dL (7.8-10.44); Carbon Dioxide 32 mmol/L (22-29); Chloride 97 mmol/L (98-107); Globulin 2.6 g/dL (2.4-3.5); Glucose 113 mg/dL (70-105); Potassium 3.6 mmol/L (3.5-5.1); Protein, Total 6.4 g/dL (6.0-8.3); Sodium 139 mmol/L (136-145)
[2021-03-04 09:15] LABS: #Lymphocytes 0.8 thou/uL (1.20-3.40); #Monocytes 0.6 thou/uL (0.11-0.59); #Neutrophils 5.5 thou/uL (1.40-6.50); %Basophils 0.5 % (0.0-1.0); %Eosinophils 0.6 % (0.0-10.0); %Lymphocytes 11.8 % (21.0-51.0); %Monocytes 8.4 % (0.0-10.0); %Neutrophils 78.8 % (42.0-75.0); Band 2 % (5-11); Hemoglobin 12.8 g/dL (12.0-16.0); Hypochromia SLIGHT = 6-15 cells (100X) (0-5/hpf); Lymphocytes 11 % (21-51); MDiff Complete? YES; Mean Corpuscular Hemoglobin 31.2 pg (27.0-31.0); Monocytes 8 % (0-10); Neutrophil 77 % (42-75); Platelet Count 279 thou/uL (130-400); Platelet Morphology Comment Appears Adequate; RBC Distribution Width 15.4 % (11.5-14.5); Reactive Lymphocytes 1 % (0-10); Red Blood Cell (RBC) Count 4.11 mill/uL (4.20-5.40); White Blood Cell (WBC) Count 6.9 thou/uL (4.8-10.8)
[2021-03-04] MEDS ORDERED: Morphine 4 MG/ML VIAL ONE ×2 (09:27→10:06)
[2021-03-04 10:01] LABS: INR-International Normal Ratio 1.1
[2021-03-04 10:37] LABS: SARS-CoV-2 NAA Rapid Test Not Detected (NotDetected)
[2021-03-04] MEDS ORDERED: Succinylcholine 200 MG/10 ml SYRINGE FS ONE (10:59)
[2021-03-04] MEDS ORDERED: Iopamidol-370 76% 500 ML 1 ML ONE (11:47)
[2021-03-04] MEDS ORDERED: Naloxone HCl 0.4 mg/ml Vial ONE (12:10)
[2021-03-04] MEDS ORDERED: Sodium Chloride 0.9% 1,000 ML IV SCH (12:15)
[2021-03-04] MEDS ORDERED: niCARdipine 25 MG in Sodium Chloride 0.9% 250 ML 240 ML IVPB SCH (12:15)
[2021-03-04] MEDS ORDERED: Ondansetron PF 4 MG/2 ML Vial IVP PRN (12:15)
[2021-03-04] MEDS ORDERED: Ondansetron ODT 4 MG TAB SL PRN (12:15)
[2021-03-04 12:24] LABS: Actual Bicarbonate (HCO3a) 29.7 mEq/L (22-28); Base Excess (BEa) -1.7 mEq/L (-2.0 to +3.0); Calcium, Ionized (arterial) 1.13 mmol/L (1.12-1.30); Hemoglobin (Hb) 12.4 g/dL (12.0-16.0); O2 Tension (PaO2), arterial 78.5 mmHg (80.0-100.0); Potassium - ABG Lab 3.58 mmol/L (3.70-5.30)
[2021-03-04 12:25] LABS: CO2 Tension 92.7 mmHg (35.0-45.0); Puncture Site LRA; pH, Arterial 7.12 (7.35-7.45)
[2021-03-04 12:26] LABS: ALV-art Gradient 5.265 mmHg (0-20)
[2021-03-04 12:58] VITALS: BMI 13.7
[2021-03-04 13:48] LABS: Actual Bicarbonate (HCO3a) 36.9 mEq/L (22-28); Calcium, Ionized (arterial) 1.14 mmol/L (1.12-1.30); Carboxyhemoglobin (COHb) 7.9 gm% (0.0-3.0); Hemoglobin (Hb) 12.8 g/dL (12.0-16.0); Potassium - ABG Lab 3.52 mmol/L (3.70-5.30)
[2021-03-04] MEDS ORDERED: Propofol 1,000 MG/100 ML VIAL IV ONE (14:04)
[2021-03-04 14:36] LABS: pH, Arterial 7.08 (7.35-7.45)
[2021-03-04 14:37] LABS: CO2 Tension 128.6 mmHg (35.0-45.0)
[2021-03-04 14:38] LABS: Puncture Site RRA
[2021-03-04 15:07] LABS: Actual Bicarbonate (HCO3a) 28.2 mEq/L (22-28); Base Excess (BEa) 1.5 mEq/L (-2.0 to +3.0); Calcium, Ionized (arterial) 1.07 mmol/L (1.12-1.30); Carboxyhemoglobin (COHb) 6.4 gm% (0.0-3.0); Hemoglobin (Hb) 12.6 g/dL (12.0-16.0); O2 Tension (PaO2), arterial 77.1 mmHg (80.0-100.0); Potassium - ABG Lab 3.96 mmol/L (3.70-5.30); pH, Arterial 7.34 (7.35-7.45)
[2021-03-04 15:10] LABS: Puncture Site RBA
[2021-03-04] MEDS ORDERED: methylPREDNISolone Sod Succ 40 MG VIAL IVP SCH (16:00)
[2021-03-04] MEDS ORDERED: Morphine 2 MG/ML VIAL SLOW IVP PRN (18:35)
[2021-03-04] MEDS ORDERED: fentaNYL Citrate/PF 2,000 MCG in Sodium Chloride 0.9% 60 ML IV PRN (18:37)
[2021-03-04] MEDS ORDERED: Fentanyl CADD 100 ML IV SCH (19:00)
[2021-03-04] MEDS: Mometasone 100 MCG/PUFF (1 INHALER) INH SCH (19:05)
[2021-03-04] MEDS ORDERED: Fentanyl CADD 100 ML ONE (20:28)
[2021-03-04] MEDS ORDERED: levETIRAcetam 500 MG in Sodium Chloride 0.9% 100 ML IVPB SCH (21:00)
[2021-03-04] MEDS: methylPREDNISolone Sod Succ/PF 125 MG/2 ML VIAL IVP SCH (21:05)
[2021-03-04] MEDS: levETIRAcetam in NS 500 MG in Premix Bag 1 BAG IVPB SCH (22:20)
[2021-03-04] MEDS: Lactated Ringer's 1,000 ML IV SCH (22:21)
[2021-03-05] MEDS: methylPREDNISolone Sod Succ/PF 125 MG/2 ML VIAL IVP SCH ×4 (04:56→21:31)
[2021-03-05 05:29] LABS: Anion Gap 13 mmol/L (10-20); BUN (Urea Nitrogen) 10 mg/dL (9.8-20.1); Calc. Creatinine Clearance 44 mL/min (70-130); Calcium 8.3 mg/dL (7.8-10.44); Carbon Dioxide 28 mmol/L (22-29); Chloride 102 mmol/L (98-107); Glucose 97 mg/dL (70-105); Magnesium 1.6 mg/dL (1.6-2.6); Phosphorus 2.2 mg/dL (2.3-4.7); Potassium 3.1 mmol/L (3.5-5.1); Sodium 140 mmol/L (136-145)
[2021-03-05 06:21] LABS: #Monocytes 0.9 thou/uL (0.11-0.59); #Neutrophils 7.3 thou/uL (1.40-6.50); %Basophils 0.1 % (0.0-1.0); %Lymphocytes 10.3 % (21.0-51.0); %Monocytes 10.1 % (0.0-10.0); %Neutrophils 79.4 % (42.0-75.0); Hemoglobin 9.7 g/dL (12.0-16.0); Hypochromia SLIGHT = 6-15 cells (100X) (0-5/hpf); MDiff Complete? YES; Mean Corpuscular HGB CONC 29.7 g/dL (32.0-36.0); Mean Corpuscular Hemoglobin 30.3 pg (27.0-31.0); Mean Platelet Volume 6.5 fL (7.4-10.4); Platelet Count 257 thou/uL (130-400); RBC Distribution Width 15.2 % (11.5-14.5); White Blood Cell (WBC) Count 9.2 thou/uL (4.8-10.8)
[2021-03-05] MEDS: Mometasone 100 MCG/PUFF (1 INHALER) INH SCH ×2 (06:58→20:18)
[2021-03-05] MEDS ORDERED: Potassium Phosphate 30 MMOL in Sodium Chloride 0.9% 250 ML 250 ML IVPB SCH (07:00)
[2021-03-05] MEDS ORDERED: hydrALAZINE 20 MG/ML VIAL SLOW IVP STA (07:52)
[2021-03-05] MEDS ORDERED: hydrALAZINE 20 MG/ML VIAL ONE (07:54)
[2021-03-05] MEDS ORDERED: predniSONE 5 MG TAB PO SCH (09:00)
[2021-03-05] MEDS: levETIRAcetam in NS 500 MG in Premix Bag 1 BAG IVPB SCH ×2 (09:03→21:31)
[2021-03-05] MEDS: Cyanocobalamin (Vitamin B-12) 1,000 MCG TAB PO SCH (09:09)
[2021-03-05] MEDS: Folic Acid 1 MG TAB PO SCH (09:09)
[2021-03-05] MEDS: Losartan 25 MG TAB PO SCH (09:09)
[2021-03-05] MEDS: pyridOXINE 50 MG (B6) TAB PO SCH (09:09)
[2021-03-05] MEDS ORDERED: HYDROcodone/Acetaminophen 5/325 mg Tablet PO PRN (11:40)
[2021-03-05] MEDS ORDERED: traMADol HCl 50 MG TAB PO PRN (11:50)
[2021-03-05] MEDS ORDERED: traMADol HCl 50 MG TAB PO SCH (12:00)
[2021-03-05] MEDS ORDERED: Cyclobenzaprine 10 MG TAB PO PRN (12:03)
[2021-03-05] MEDS: Acetaminophen 325 MG TAB PO SCH ×4 (12:11→23:28)
[2021-03-05] MEDS: Oxazepam 10 MG CAP PO SCH ×2 (14:33→21:29)
[2021-03-05] MEDS: Gabapentin 300 MG CAP PO SCH ×2 (14:33→21:30)
[2021-03-05] MEDS: HYDROcodone/Acetaminophen 5/325 mg Tablet PO PRN ×2 (14:43→21:30)
[2021-03-05] MEDS: Lactated Ringer's 1,000 ML IV SCH (21:22)
[2021-03-06] MEDS: methylPREDNISolone Sod Succ/PF 125 MG/2 ML VIAL IVP SCH (03:27)
[2021-03-06] MEDS: HYDROcodone/Acetaminophen 5/325 mg Tablet PO PRN ×2 (05:00→12:04)
[2021-03-06] MEDS: Acetaminophen 325 MG TAB PO SCH ×3 (05:00→18:24)
[2021-03-06] MEDS: Oxazepam 10 MG CAP PO SCH ×2 (05:01→15:38)
[2021-03-06] MEDS: Mometasone 100 MCG/PUFF (1 INHALER) INH SCH ×2 (06:55→18:03)
[2021-03-06] MEDS ORDERED: Bisacodyl 5 MG TAB PO SCH (08:30)
[2021-03-06] MEDS ORDERED: levETIRAcetam 500 MG TAB PO SCH (09:00)
[2021-03-06] MEDS: Gabapentin 300 MG CAP PO SCH ×2 (09:33→15:38)
[2021-03-06] MEDS: Cyanocobalamin (Vitamin B-12) 1,000 MCG TAB PO SCH (09:34)
[2021-03-06] MEDS: pyridOXINE 50 MG (B6) TAB PO SCH (09:34)
[2021-03-06] MEDS: Losartan 25 MG TAB PO SCH (09:34)
[2021-03-06] MEDS: Folic Acid 1 MG TAB PO SCH (09:34)
[2021-03-06 16:08] VITALS: BP 149/87; TEMP 97.4
[2021-03-07] MEDS ORDERED: Levothyroxine Sodium 50 MCG TAB PO SCH (06:00)
== END 2021-03-06 20:57 | disposition home or self-care (01) | DRG 82 ==
LOC: ERS 07:24 → CCU 10:40 → SURG B 03-05 13:52
PROVIDERS: ADMIT Surgery; ATTEND Surgery
PROC: 0BH17EZ Insertion of Endotracheal Airway into Trachea, Via Natural or Artificial Opening (ICD-10-PCS; principal; 2021-03-04)
PROC: 5A1935Z Respiratory Ventilation, Less than 24 Consecutive Hours (ICD-10-PCS; 2021-03-04)
DX: S06.6X9A Traumatic subarachnoid hemorrhage with loss of consciousness of unspecified duration, initial encounter (principal); J96.00 Acute respiratory failure, unspecified whether with hypoxia or hypercapnia; E87.2 Acidosis; S02.40DA Maxillary fracture, left side, initial encounter for closed fracture; S02.32XA Fracture of orbital floor, left side, initial encounter for closed fracture; S02.842A Fracture of lateral orbital wall, left side, initial encounter for closed fracture; S02.40FA Zygomatic fracture, left side, initial encounter for closed fracture; J44.9 Chronic obstructive pulmonary disease, unspecified; I10 Essential (primary) hypertension; G40.909 Epilepsy, unspecified, not intractable, without status epilepticus; G43.909 Migraine, unspecified, not intractable, without status migrainosus; Z96.641 Presence of right artificial hip joint; F17.210 Nicotine dependence, cigarettes, uncomplicated; S00.12XA Contusion of left eyelid and periocular area, initial encounter; F32.9 Major depressive disorder, single episode, unspecified; T40.2X1A Poisoning by other opioids, accidental (unintentional), initial encounter; Z99.81 Dependence on supplemental oxygen; Z90.710 Acquired absence of both cervix and uterus; W18.39XA Other fall on same level, initial encounter; W36.3XXA Explosion and rupture of pressurized-gas tank, initial encounter; Z88.6 Allergy status to analgesic agent; Z91.09 Other allergy status, other than to drugs and biological substances; Y92.230 Patient room in hospital as the place of occurrence of the external cause; Z20.822 Contact with and (suspected) exposure to COVID-19; R40.2362 Coma scale, best motor response, obeys commands, at arrival to emergency department; R40.2142 Coma scale, eyes open, spontaneous, at arrival to emergency department; R40.2242 Coma scale, best verbal response, confused conversation, at arrival to emergency department
CPT/HCPCS: 0240U; 36415; 36600; 70450; 70486; 70496; 71045; 72125; 80048; 80053; 82533; 82805; 83735; 84100; 84484; 85025; 85610; 85730; 93005; 94002; 94003; 94640; 96374; 96376; G0390; J0360; J1953; J2270; J2310; J2704; J2920; J2930; J3010; J3490; J7050; J7620; P9045; Q9967

== ENCOUNTER 2021-05-02 19:39 | Emergency (ER) | payer MEDICARE, MEDICAID ==
[2021-05-02] MEDS ORDERED: Ondansetron ODT 4 MG TAB ONE (20:17)
[2021-05-02] MEDS ORDERED: Naproxen 500 MG TAB ONE (20:17)
[2021-05-02] MEDS ORDERED: Ondansetron PF 4 MG/2 ML Vial ONE (20:17)
== END 2021-05-02 20:38 | disposition home or self-care (01) ==
LOC: ERS 19:39
DX: S70.02XA Contusion of left hip, initial encounter (principal); I10 Essential (primary) hypertension; J44.9 Chronic obstructive pulmonary disease, unspecified; F17.210 Nicotine dependence, cigarettes, uncomplicated; W19.XXXA Unspecified fall, initial encounter
CPT/HCPCS: J2405; Q0162

== ENCOUNTER 2021-08-28 00:50 | Emergency (ER) | payer MEDICARE, MEDICAID ==
[2021-08-28 01:46] LABS: Hemoglobin 12.7 g/dL (12.0-16.0); Mean Corpuscular HGB CONC 29.8 g/dL (32.0-36.0); Mean Corpuscular Hemoglobin 31.7 pg (27.0-31.0); Mean Platelet Volume 6.8 fL (7.4-10.4); Platelet Count 214 thou/uL (130-400); RBC Distribution Width 14.4 % (11.5-14.5); Red Blood Cell (RBC) Count 4.01 mill/uL (4.20-5.40); White Blood Cell (WBC) Count 7.7 thou/uL (4.8-10.8)
[2021-08-28 02:02] LABS: ALT (SGPT) 19 U/L (8-55); AST (SGOT) 27 U/L (5-34); Albumin 3.3 g/dL (3.5-5.0); Alkaline Phosphatase 103 U/L (40-110); Anion Gap 12 mmol/L (10-20); BUN (Urea Nitrogen) 9 mg/dL (9.8-20.1); Band 14 % (5-11); Bilirubin, Total Less than 0.2 mg/dL (0.2-1.2); Calc. Creatinine Clearance 0 mL/min (70-130); Calcium 8.7 mg/dL (7.8-10.44); Carbon Dioxide 36 mmol/L (22-29); Chloride 97 mmol/L (98-107); Eosinophils 1 % (0-10); Globulin 2.3 g/dL (2.4-3.5); Glucose 110 mg/dL (70-105); Lymphocytes 2 % (21-51); MDiff Complete? YES; Macrocytosis SLIGHT = 6-15 cells (100X) (0-5/hpf); Monocytes 17 % (0-10); Neutrophil 66 % (42-75); Platelet Morphology Comment Appears Adequate; Potassium 3.9 mmol/L (3.5-5.1); Protein, Total 5.6 g/dL (6.0-8.3); Sodium 141 mmol/L (136-145)
[2021-08-28] MEDS ORDERED: methylPREDNISolone Sod Succ/PF 125 MG/2 ML VIAL ONE (02:26)
[2021-08-28] MEDS ORDERED: Acetaminophen 500 MG TAB ONE (03:20)
[2021-08-28] MEDS ORDERED: Magnesium 2 GM/50 ML BAG (IN WATER) ONE (03:30)
[2021-08-28] MEDS ORDERED: Albuterol Sulfate 2.5 mg/3 ml Neb ONE (06:45)
== END 2021-08-28 07:25 | disposition home or self-care (01) ==
LOC: ERS 00:50
DX: J44.1 Chronic obstructive pulmonary disease with (acute) exacerbation (principal); I10 Essential (primary) hypertension; Z87.891 Personal history of nicotine dependence
CPT/HCPCS: 36415; 71045; 80053; 83880; 84484; 85025; 93005; 94640; 96365; 96375; J2930; J3475; J7611

== ENCOUNTER 2021-09-30 13:38 | Emergency (ER) | payer MEDICARE, MEDICAID ==
[2021-09-30] MEDS ORDERED: Oxymetazoline HCl 0.05% (30 ML BOT) ONE (15:50)
== END 2021-09-30 18:08 | disposition home or self-care (01) ==
LOC: ERS 13:38
DX: R04.0 Epistaxis (principal); J44.9 Chronic obstructive pulmonary disease, unspecified; I10 Essential (primary) hypertension; G43.909 Migraine, unspecified, not intractable, without status migrainosus; F17.200 Nicotine dependence, unspecified, uncomplicated
CPT/HCPCS: 99283

== ENCOUNTER 2022-02-27 23:34 | Inpatient (IN) | payer MEDICARE, MEDICAID ==
[2022-02-28 01:38] VITALS: BMI 10.2
[2022-02-28] MEDS ORDERED: Ondansetron PF 4 MG/2 ML Vial IVP PRN (01:51)
[2022-02-28] MEDS ORDERED: Acetaminophen 325 MG TAB PO PRN (01:51)
[2022-02-28] MEDS ORDERED: Senokot S 8.6-50 MG TAB PO PRN (01:51)
[2022-02-28] MEDS ORDERED: Bisacodyl 5 MG TAB PO PRN (01:51)
[2022-02-28] MEDS ORDERED: Sodium Chloride 0.9% 1,000 ML IV SCH (02:00)
[2022-02-28] MEDS ORDERED: hydrALAZINE 20 MG/ML VIAL SLOW IVP PRN (02:01)
[2022-02-28] MEDS ORDERED: Levothyroxine Sodium 50 MCG TAB PO SCH (06:00)
[2022-02-28 07:25] LABS: ALT (SGPT) 17 U/L (8-55); AST (SGOT) 40 U/L (5-34); Alkaline Phosphatase 60 U/L (40-110); Anion Gap 22 mmol/L (10-20); BUN (Urea Nitrogen) 17 mg/dL (9.8-20.1); Bilirubin, Total 0.5 mg/dL (0.2-1.2); Calc. Creatinine Clearance 40 mL/min (70-130); Calcium 9.7 mg/dL (7.8-10.44); Carbon Dioxide 24 mmol/L (22-29); Chloride 97 mmol/L (98-107); Globulin 2.8 g/dL (2.4-3.5); Glucose 88 mg/dL (70-105); Potassium 4.6 mmol/L (3.5-5.1); Protein, Total 6.8 g/dL (6.0-8.3); Sodium 138 mmol/L (136-145)
[2022-02-28 08:18] LABS: #Lymphocytes 0.5 thou/uL (1.20-3.40); #Monocytes 0.7 thou/uL (0.11-0.59); #Neutrophils 6.9 thou/uL (1.40-6.50); %Eosinophils 0.2 % (0.0-10.0); %Lymphocytes 5.8 % (21.0-51.0); %Monocytes 8.7 % (0.0-10.0); %Neutrophils 85.3 % (42.0-75.0); Hemoglobin 12.9 g/dL (12.0-16.0); Mean Corpuscular HGB CONC 29.3 g/dL (32.0-36.0); Mean Corpuscular Volume 98.7 fL (78.0-98.0); Mean Platelet Volume 6.8 fL (7.4-10.4); Platelet Count 272 thou/uL (130-400); RBC Distribution Width 16.6 % (11.5-14.5); Red Blood Cell (RBC) Count 4.47 mill/uL (4.20-5.40); White Blood Cell (WBC) Count 8.1 thou/uL (4.8-10.8)
[2022-02-28 08:45] LABS: MDiff Complete? YES; Platelet Morphology Comment Appears Adequate; Polychromasia SLIGHT = 2-3 cells (100X) (0-2/hpf)
[2022-02-28] MEDS ORDERED: pyridOXINE 50 MG (B6) TAB PO SCH (09:00)
[2022-02-28] MEDS ORDERED: levETIRAcetam 500 MG TAB PO SCH (09:00)
[2022-02-28] MEDS ORDERED: Cyclobenzaprine 10 MG TAB PO PRN (10:38)
[2022-02-28] MEDS ORDERED: SODIUM CHLORIDE 0.9% IVPB SCH (11:45)
[2022-02-28] MEDS ORDERED: FOSPHENYTOIN SODIUM IVPB SCH (11:45)
[2022-02-28 11:46] VITALS: BP 160/91
[2022-02-28 12:12] LABS: SARS-CoV-2 PCR by NAA Not Detected (NotDetected)
[2022-02-28] MEDS ORDERED: levETIRAcetam 2,000 MG, Admixture Fee 1 EACH in Sodium Chloride 0.9% 100 ML IVPB SCH (12:15)
[2022-02-28] MEDS ORDERED: Lorazepam 2 MG/ML VIAL ONE (12:33)
[2022-02-28] MEDS ORDERED: Lorazepam 2 MG/ML VIAL SLOW IVP PRN ×2 (12:37→18:11)
[2022-02-28] MEDS ORDERED: Lorazepam 2 MG/ML VIAL SLOW IVP SCH (13:00)
[2022-02-28] MEDS ORDERED: Budesonide 0.5 MG/2 ML NEB NEB SCH ×2 (18:30→21:00)
[2022-02-28] MEDS ORDERED: Mometasone 100 MCG/PUFF (1 INHALER) INH SCH (18:30)
[2022-02-28 19:39] VITALS: TEMP 97.8
[2022-02-28] MEDS: levETIRAcetam in NS 1,500 MG in Premix Bag 1 BAG IVPB SCH ×2 (20:25→20:45)
[2022-02-28] MEDS ORDERED: Fosphenytoin Sodium 100 MG in Sodium Chloride 0.9% 50 ML IVPB SCH (21:00)
[2022-02-28] MEDS ORDERED: QUETIAPINE FUMARATE 150 MG PO SCH (21:00)
[2022-02-28] MEDS ORDERED: Cyproheptadine 4 MG TAB PO SCH (21:00)
[2022-03-01] MEDS ORDERED: predniSONE 20 MG TAB PO SCH (08:00)
[2022-03-01] MEDS ORDERED: predniSONE 5 MG TAB PO SCH (08:00)
[2022-03-01] MEDS ORDERED: Non-Formulary Item 1 EACH (Fluticasone/Umeclidin/Vilanter [Trelegy Ellipta 100-62.5-25] 1 INH SCH (09:00)
[2022-03-01] MEDS ORDERED: Losartan 25 MG TAB PO SCH (09:00)
[2022-03-01] MEDS ORDERED: Non-Formulary Item 1 EACH (Losartan Potassium [Losartan Potassium] 50 MG Tablet) PO SCH (09:00)
== END 2022-02-28 20:57 | disposition short-term general hospital (02) | DRG 101 ==
LOC: 2NO 23:34 → OBSVTOIN 02-28 11:39 → CCU 02-28 12:55 → 2NO 02-28 12:56 → CCU 02-28 13:12 → IMCU/EMU 02-28 15:18
PROVIDERS: ADMIT Internal Medicine; ATTEND Internal Medicine
DX: G40.901 Epilepsy, unspecified, not intractable, with status epilepticus (principal); R64 Cachexia; E44.0 Moderate protein-calorie malnutrition; Z68.1 Body mass index [BMI] 19.9 or less, adult; J96.11 Chronic respiratory failure with hypoxia; J96.12 Chronic respiratory failure with hypercapnia; J44.9 Chronic obstructive pulmonary disease, unspecified; E03.9 Hypothyroidism, unspecified; I10 Essential (primary) hypertension; E78.5 Hyperlipidemia, unspecified; R62.7 Adult failure to thrive; G43.909 Migraine, unspecified, not intractable, without status migrainosus; F03.90 Unspecified dementia, unspecified severity, without behavioral disturbance, psychotic disturbance, mood disturbance, and anxiety; F41.9 Anxiety disorder, unspecified; F32.A Depression, unspecified; F17.210 Nicotine dependence, cigarettes, uncomplicated; Z96.641 Presence of right artificial hip joint; D64.9 Anemia, unspecified; Z20.822 Contact with and (suspected) exposure to COVID-19; Z85.841 Personal history of malignant neoplasm of brain; Z88.8 Allergy status to other drugs, medicaments and biological substances; Z79.890 Hormone replacement therapy; Z79.899 Other long term (current) drug therapy; Z79.51 Long term (current) use of inhaled steroids; Z90.710 Acquired absence of both cervix and uterus; Z98.890 Other specified postprocedural states
CPT/HCPCS: 36415; 80053; 80177; 80185; 84134; 85025; 94640; 95712; 95819; 95957; J1953; J2060; J3490; J7050; J7620; J7626; Q2009; U0003; U0005

== ENCOUNTER 2022-04-08 16:39 | Inpatient (IN) | payer MEDICARE, MEDICAID ==
[2022-04-08] MEDS ORDERED: methylPREDNISolone Sod Succ/PF 125 MG/2 ML VIAL ONE (17:01)
[2022-04-08] MEDS ORDERED: Lorazepam 2 MG/ML VIAL ONE (17:01)
[2022-04-08 17:32] LABS: #Lymphocytes 0.5 thou/uL (1.20-3.40); #Monocytes 0.4 thou/uL (0.11-0.59); #Neutrophils 5.1 thou/uL (1.40-6.50); %Basophils 0.2 % (0.0-1.0); %Eosinophils 0.2 % (0.0-10.0); %Lymphocytes 8.2 % (21.0-51.0); %Monocytes 6.5 % (0.0-10.0); %Neutrophils 84.9 % (42.0-75.0); Hemoglobin 12.1 g/dL (12.0-16.0); Mean Corpuscular Hemoglobin 30.1 pg (27.0-31.0); Mean Platelet Volume 6.5 fL (7.4-10.4); Platelet Count 250 thou/uL (130-400); RBC Distribution Width 16.9 % (11.5-14.5); Red Blood Cell (RBC) Count 4.02 mill/uL (4.20-5.40); White Blood Cell (WBC) Count 6.1 thou/uL (4.8-10.8)
[2022-04-08 17:52] LABS: ALT (SGPT) 15 U/L (8-55); AST (SGOT) 20 U/L (5-34); Albumin 3.8 g/dL (3.5-5.0); Alkaline Phosphatase 63 U/L (40-110); Anion Gap 17 mmol/L (10-20); BUN (Urea Nitrogen) 10 mg/dL (9.8-20.1); Bilirubin, Total 0.6 mg/dL (0.2-1.2); Calc. Creatinine Clearance 0 mL/min (70-130); Calcium 9.4 mg/dL (7.8-10.44); Carbon Dioxide 31 mmol/L (22-29); Chloride 96 mmol/L (98-107); Globulin 2.7 g/dL (2.4-3.5); Glucose 125 mg/dL (70-105); Potassium 3.8 mmol/L (3.5-5.1); Protein, Total 6.5 g/dL (6.0-8.3); Sodium 140 mmol/L (136-145)
[2022-04-08 22:44] LABS: Lactic Acid 5.2 mmol/L (0.5-2.2)
[2022-04-08] MEDS ORDERED: Ondansetron PF 4 MG/2 ML Vial IVP PRN (22:50)
[2022-04-08] MEDS ORDERED: Benzonatate 100 MG CAP PO PRN (22:50)
[2022-04-08] MEDS ORDERED: Ondansetron ODT 4 MG TAB PO PRN (22:50)
[2022-04-08] MEDS ORDERED: Budesonide 0.5 MG/2 ML NEB NEB SCH (23:00)
[2022-04-08] MEDS ORDERED: Famotidine 20 MG TAB PO SCH (23:00)
[2022-04-08] MEDS ORDERED: Vancomycin 1 GM in Premix Bag 1 BAG IVPB SCH (23:15)
[2022-04-08] MEDS ORDERED: levETIRAcetam 500 MG TAB PO SCH (23:15)
[2022-04-08] MEDS ORDERED: Megestrol Acetate 40 MG TAB PO SCH (23:15)
[2022-04-08] MEDS ORDERED: Cyproheptadine 4 MG TAB PO SCH (23:15)
[2022-04-08] MEDS: Sodium Chloride 0.9% 1,000 ML IV SCH (23:33)
[2022-04-08] MEDS: Dextrose 5 %-0.45 % NaCl 1,000 ML IV SCH (23:34)
[2022-04-08] MEDS: ALPRAZolam 1 MG TAB PO PRN (23:35)
[2022-04-08] MEDS: methylPREDNISolone Sod Succ 40 MG VIAL IVP SCH (23:35)
[2022-04-09] MEDS: HYDROcodone/Acetaminophen 10/325 mg Tablet PO PRN ×2 (00:44→20:05)
[2022-04-09] MEDS: Temazepam 15 MG CAP PO PRN ×2 (00:44→21:53)
[2022-04-09] MEDS: Vancomycin HCl 500 MG in Sodium Chloride 0.9% 100 ML IVPB SCH ×2 (01:08→23:32)
[2022-04-09 04:52] LABS: #Lymphocytes 0.3 thou/uL (1.20-3.40); #Monocytes 0.3 thou/uL (0.11-0.59); #Neutrophils 3.6 thou/uL (1.40-6.50); %Eosinophils 0.2 % (0.0-10.0); %Lymphocytes 7.4 % (21.0-51.0); %Monocytes 6.8 % (0.0-10.0); %Neutrophils 85.6 % (42.0-75.0); Hemoglobin 10.6 g/dL (12.0-16.0); Mean Corpuscular HGB CONC 29.2 g/dL (32.0-36.0); Mean Corpuscular Hemoglobin 30.2 pg (27.0-31.0); Mean Platelet Volume 6.8 fL (7.4-10.4); Platelet Count 215 thou/uL (130-400); RBC Distribution Width 16.7 % (11.5-14.5); White Blood Cell (WBC) Count 4.2 thou/uL (4.8-10.8)
[2022-04-09 05:03] LABS: Lactic Acid 1.4 mmol/L (0.5-2.2)
[2022-04-09 05:14] LABS: Anion Gap 9 mmol/L (10-20); BUN (Urea Nitrogen) 14 mg/dL (9.8-20.1); Calc. Creatinine Clearance 48 mL/min (70-130); Calcium 9.3 mg/dL (7.8-10.44); Carbon Dioxide 36 mmol/L (22-29); Chloride 104 mmol/L (98-107); Glucose 111 mg/dL (70-105); Potassium 3.6 mmol/L (3.5-5.1); Sodium 145 mmol/L (136-145)
[2022-04-09] MEDS: Levothyroxine Sodium 50 MCG TAB PO SCH (06:07)
[2022-04-09] MEDS: methylPREDNISolone Sod Succ 40 MG VIAL IVP SCH ×4 (06:07→23:39)
[2022-04-09] MEDS: Sodium Chloride 0.9% 1,000 ML IV SCH (06:08)
[2022-04-09] MEDS: Budesonide 0.5 MG/2 ML NEB NEB SCH ×2 (06:25→19:45)
[2022-04-09] MEDS: Mometasone 200 MCG/Formoterol 5 MCG 120 PUFF INHALER INH SCH ×2 (06:27→19:46)
[2022-04-09] MEDS ORDERED: levETIRAcetam 500 MG TAB PO SCH (09:00)
[2022-04-09] MEDS ORDERED: levETIRAcetam in NS 1,500 MG in Premix Bag 1 BAG IVPB SCH (09:00)
[2022-04-09 10:22] LABS: Lactic Acid 1.5 mmol/L (0.5-2.2)
[2022-04-09] MEDS: Megestrol Acetate 40 MG TAB PO SCH ×3 (10:29→21:53)
[2022-04-09] MEDS: Dextrose 5 %-0.45 % NaCl 1,000 ML IV SCH (10:29)
[2022-04-09] MEDS: Famotidine 20 MG TAB PO SCH ×2 (10:29→21:53)
[2022-04-09] MEDS ORDERED: Furosemide 40 MG/4 ML VIAL SLOW IVP SCH (10:30)
[2022-04-09] MEDS: Losartan 25 MG TAB PO SCH (10:31)
[2022-04-09] MEDS: Cyproheptadine 4 MG TAB PO SCH ×2 (10:36→21:53)
[2022-04-09] MEDS ORDERED: levETIRAcetam 500 MG/5 ML VIAL SLOW IVP SCH (11:00)
[2022-04-09] MEDS: ALPRAZolam 1 MG TAB PO PRN (20:05)
[2022-04-09] MEDS ORDERED: QUETIAPINE FUMARATE 150 MG PO SCH (21:00)
[2022-04-09] MEDS: levETIRAcetam 500 MG/5 ML VIAL SLOW IVP SCH (21:49)
[2022-04-10] MEDS: HYDROcodone/Acetaminophen 10/325 mg Tablet PO PRN (02:13)
[2022-04-10] MEDS: ALPRAZolam 1 MG TAB PO PRN (02:13)
[2022-04-10] MEDS: Nicotine 14 MG PATCH TOP PRN (02:23)
[2022-04-10] MEDS: Levothyroxine Sodium 50 MCG TAB PO SCH (06:03)
[2022-04-10] MEDS: methylPREDNISolone Sod Succ 40 MG VIAL IVP SCH ×3 (06:07→18:11)
[2022-04-10] MEDS: Budesonide 0.5 MG/2 ML NEB NEB SCH ×2 (06:20→18:25)
[2022-04-10] MEDS: Mometasone 200 MCG/Formoterol 5 MCG 120 PUFF INHALER INH SCH ×2 (06:22→18:26)
[2022-04-10] MEDS: levETIRAcetam 500 MG/5 ML VIAL SLOW IVP SCH (07:49)
[2022-04-10] MEDS: Famotidine 20 MG TAB PO SCH ×2 (08:29→20:39)
[2022-04-10] MEDS: Cyproheptadine 4 MG TAB PO SCH ×2 (08:29→20:42)
[2022-04-10] MEDS: Losartan 25 MG TAB PO SCH (08:29)
[2022-04-10] MEDS: Megestrol Acetate 40 MG TAB PO SCH ×3 (08:29→20:41)
[2022-04-10 10:42] LABS: Actual Bicarbonate (HCO3a) 44.6 mEq/L (22-28); Calcium, Ionized (arterial) 1.34 mmol/L (1.12-1.30); Carboxyhemoglobin (COHb) 0.4 gm% (0.0-3.0); Hemoglobin (Hb) 11.3 g/dL (12.0-16.0); Potassium - ABG Lab 4.74 mmol/L (3.70-5.30)
[2022-04-10 10:56] LABS: O2 Tension (PaO2), arterial 59.4 mmHg (80.0-100.0); pH, Arterial 7.07 (7.35-7.45)
[2022-04-10] MEDS ORDERED: Midazolam In 0.9 % NaCl/PF 100 ML IVPB SCH (11:00)
[2022-04-10] MEDS ORDERED: Electrolyte Replacement Protocol 1 EACH FS ONE (11:31)
[2022-04-10] MEDS ORDERED: Morphine 4 MG/ML VIAL SLOW IVP PRN (11:45)
[2022-04-10] MEDS ORDERED: Ventilator Sedation Protocol 1 EACH FS SCH (11:45)
[2022-04-10] MEDS ORDERED: Fentanyl BOLUS 250 ML IVPB PRN (11:45)
[2022-04-10] MEDS ORDERED: Electrolyte Replacement Protocol FS PRN (11:45)
[2022-04-10] MEDS ORDERED: Propofol BOLUS 1,000 MG/100 ML VIAL IV PRN (11:45)
[2022-04-10] MEDS ORDERED: fentaNYL Citrate/PF 2,000 MCG in Sodium Chloride 0.9% 60 ML IV SCH (11:45)
[2022-04-10 12:11] LABS: Actual Bicarbonate (HCO3a) 33.6 mEq/L (22-28); Base Excess (BEa) 3.9 mEq/L (-2.0 to +3.0); O2 Tension (PaO2), arterial 68.6 mmHg (80.0-100.0)
[2022-04-10 12:12] LABS: Calcium, Ionized (arterial) 1.26 mmol/L (1.12-1.30); Carboxyhemoglobin (COHb) 0.5 gm% (0.0-3.0); Hemoglobin (Hb) 11.2 g/dL (12.0-16.0); Potassium - ABG Lab 3.95 mmol/L (3.70-5.30)
[2022-04-10 12:14] LABS: Puncture Site RBA; pH, Arterial 7.23 (7.35-7.45)
[2022-04-10] MEDS: Propofol 1,000 MG/100 ML VIAL IV PRN ×2 (12:20→18:11)
[2022-04-10] MEDS: Lactated Ringer's 1,000 ML IV SCH ×2 (12:21→21:00)
[2022-04-10] MEDS: Clindamycin/D5W 600 MG in Premix Bag 1 BAG IVPB SCH ×2 (14:26→21:00)
[2022-04-10] MEDS ORDERED: Budesonide 0.5 MG/2 ML NEB INH SCH ×2 (18:30)
[2022-04-10] MEDS: levETIRAcetam in NS 1,500 MG in Premix Bag 1 BAG IVPB SCH (20:35)
[2022-04-10 23:38] LABS: Vancomycin, Trough 3.3 ug/mL
[2022-04-11] MEDS: Vancomycin HCl 500 MG in Sodium Chloride 0.9% 100 ML IVPB SCH ×3 (00:34→12:14)
[2022-04-11] MEDS: methylPREDNISolone Sod Succ 40 MG VIAL IVP SCH ×4 (00:34→17:13)
[2022-04-11] MEDS: Lorazepam 2 MG/ML VIAL SLOW IVP PRN ×2 (02:02→20:29)
[2022-04-11] MEDS: Clindamycin/D5W 600 MG in Premix Bag 1 BAG IVPB SCH ×4 (02:02→20:29)
[2022-04-11 04:40] LABS: #Lymphocytes 0.3 thou/uL (1.20-3.40); #Monocytes 0.5 thou/uL (0.11-0.59); %Lymphocytes 2.1 % (21.0-51.0); %Monocytes 3.4 % (0.0-10.0); %Neutrophils 94.4 % (42.0-75.0); Hemoglobin 8.6 g/dL (12.0-16.0); Mean Corpuscular HGB CONC 29.4 g/dL (32.0-36.0); Mean Corpuscular Hemoglobin 30.6 pg (27.0-31.0); Mean Platelet Volume 6.6 fL (7.4-10.4); Platelet Count 180 thou/uL (130-400); RBC Distribution Width 17.1 % (11.5-14.5); Red Blood Cell (RBC) Count 2.81 mill/uL (4.20-5.40); White Blood Cell (WBC) Count 14.9 thou/uL (4.8-10.8)
[2022-04-11 05:11] LABS: Anion Gap 10 mmol/L (10-20); BUN (Urea Nitrogen) 13 mg/dL (9.8-20.1); Calc. Creatinine Clearance 49 mL/min (70-130); Calcium 8.6 mg/dL (7.8-10.44); Carbon Dioxide 35 mmol/L (22-29); Chloride 98 mmol/L (98-107); Glucose 115 mg/dL (70-105); Sodium 139 mmol/L (136-145)
[2022-04-11] MEDS: Levothyroxine Sodium 50 MCG TAB PO SCH (06:31)
[2022-04-11] MEDS: Mometasone 200 MCG/Formoterol 5 MCG 120 PUFF INHALER INH SCH ×2 (06:57→19:03)
[2022-04-11] MEDS: Budesonide 0.5 MG/2 ML NEB NEB SCH ×2 (06:57→19:02)
[2022-04-11 07:42] LABS: Actual Bicarbonate (HCO3a) 35.6 mEq/L (22-28); CO2 Tension 54.5 mmHg (35.0-45.0); Calcium, Ionized (arterial) 1.13 mmol/L (1.12-1.30); Carboxyhemoglobin (COHb) 0.5 gm% (0.0-3.0); Hemoglobin (Hb) 9.3 g/dL (12.0-16.0); Potassium - ABG Lab 4.13 mmol/L (3.70-5.30); pH, Arterial 7.43 (7.35-7.45)
[2022-04-11 07:43] LABS: ALV-art Gradient 128.075 mmHg (0-20); Puncture Site RBA
[2022-04-11] MEDS: Losartan 25 MG TAB PO SCH (08:14)
[2022-04-11] MEDS: Famotidine 20 MG TAB PO SCH ×2 (08:14→20:29)
[2022-04-11] MEDS: levETIRAcetam in NS 1,500 MG in Premix Bag 1 BAG IVPB SCH ×2 (08:56→20:29)
[2022-04-11] MEDS: Lactated Ringer's 1,000 ML IV SCH ×2 (08:58→17:12)
[2022-04-11] MEDS: Megestrol Acetate 40 MG TAB PO SCH ×3 (08:59→21:03)
[2022-04-11] MEDS: Cyproheptadine 4 MG TAB PO SCH ×2 (08:59→21:03)
[2022-04-11] MEDS: Propofol 1,000 MG/100 ML VIAL IV PRN ×2 (10:15→20:29)
[2022-04-12] MEDS: methylPREDNISolone Sod Succ 40 MG VIAL IVP SCH ×3 (00:55→20:35)
[2022-04-12] MEDS: Clindamycin/D5W 600 MG in Premix Bag 1 BAG IVPB SCH ×4 (01:39→20:35)
[2022-04-12] MEDS: Propofol 1,000 MG/100 ML VIAL IV PRN (03:28)
[2022-04-12] MEDS: Lactated Ringer's 1,000 ML IV SCH (03:28)
[2022-04-12 05:16] LABS: Anion Gap 10 mmol/L (10-20); BUN (Urea Nitrogen) 13 mg/dL (9.8-20.1); Calc. Creatinine Clearance 61 mL/min (70-130); Calcium 8.8 mg/dL (7.8-10.44); Carbon Dioxide 33 mmol/L (22-29); Chloride 101 mmol/L (98-107); Glucose 102 mg/dL (70-105); Potassium 3.6 mmol/L (3.5-5.1); Sodium 140 mmol/L (136-145)
[2022-04-12] MEDS: Levothyroxine Sodium 50 MCG TAB PO SCH (06:04)
[2022-04-12] MEDS: Mometasone 200 MCG/Formoterol 5 MCG 120 PUFF INHALER INH SCH ×2 (06:33→19:00)
[2022-04-12] MEDS: Budesonide 0.5 MG/2 ML NEB NEB SCH ×2 (06:33→19:00)
[2022-04-12 07:09] LABS: Actual Bicarbonate (HCO3a) 30.3 mEq/L (22-28); Base Excess (BEa) 5.2 mEq/L (-2.0 to +3.0); CO2 Tension 47.2 mmHg (35.0-45.0); Calcium, Ionized (arterial) 1.16 mmol/L (1.12-1.30); Carboxyhemoglobin (COHb) 0.1 gm% (0.0-3.0); Hemoglobin (Hb) 9.8 g/dL (12.0-16.0); O2 Tension (PaO2), arterial 86.8 mmHg (80.0-100.0); Potassium - ABG Lab 3.43 mmol/L (3.70-5.30); pH, Arterial 7.43 (7.35-7.45)
[2022-04-12 07:18] LABS: Puncture Site LRA
[2022-04-12] MEDS: Famotidine 20 MG TAB PO SCH ×2 (09:56→20:35)
[2022-04-12] MEDS: levETIRAcetam in NS 1,500 MG in Premix Bag 1 BAG IVPB SCH ×2 (09:57→20:34)
[2022-04-12] MEDS: Losartan 25 MG TAB PO SCH (09:57)
[2022-04-12] MEDS: Cyproheptadine 4 MG TAB PO SCH ×2 (09:57→20:35)
[2022-04-12] MEDS: Megestrol Acetate 40 MG TAB PO SCH ×3 (09:58→20:36)
[2022-04-12] MEDS ORDERED: Dextrose 50% Abboject 50 ML SYRINGE ONE (16:57)
[2022-04-12] MEDS ORDERED: Dextrose 50% Abboject 50 ML SYRINGE SLOW IVP SCH (17:15)
[2022-04-12] MEDS: Lorazepam 2 MG/ML VIAL SLOW IVP PRN ×2 (18:00→21:59)
[2022-04-12] MEDS: Dextrose 5%-Lactated Ringers 1,000 ML IV SCH (18:04)
[2022-04-13] MEDS: Clindamycin/D5W 600 MG in Premix Bag 1 BAG IVPB SCH ×4 (02:39→20:59)
[2022-04-13] MEDS: Lactated Ringer's 1,000 ML IV SCH (03:02)
[2022-04-13 04:43] LABS: #Lymphocytes 1.1 thou/uL (1.20-3.40); #Monocytes 1.1 thou/uL (0.11-0.59); #Neutrophils 6.5 thou/uL (1.40-6.50); %Basophils 0.1 % (0.0-1.0); %Eosinophils 0.1 % (0.0-10.0); %Lymphocytes 12.5 % (21.0-51.0); %Monocytes 12.3 % (0.0-10.0); Hemoglobin 8.7 g/dL (12.0-16.0); Mean Corpuscular HGB CONC 32.9 g/dL (32.0-36.0); Mean Corpuscular Hemoglobin 27.5 pg (27.0-31.0); Mean Corpuscular Volume 83.6 fL (78.0-98.0); Mean Platelet Volume 9.3 fL (7.4-10.4); Platelet Count 210 thou/uL (130-400); Red Blood Cell (RBC) Count 3.18 mill/uL (4.20-5.40); White Blood Cell (WBC) Count 8.6 thou/uL (4.8-10.8)
[2022-04-13 04:55] LABS: Anion Gap 11 mmol/L (10-20); BUN (Urea Nitrogen) 39 mg/dL (9.8-20.1); Calc. Creatinine Clearance 29 mL/min (70-130); Calcium 7.5 mg/dL (7.8-10.44); Carbon Dioxide 29 mmol/L (22-29); Chloride 102 mmol/L (98-107); Glucose 133 mg/dL (70-105); Potassium 3.8 mmol/L (3.5-5.1); Sodium 138 mmol/L (136-145)
[2022-04-13] MEDS: Levothyroxine Sodium 50 MCG TAB PO SCH (05:43)
[2022-04-13] MEDS: Budesonide 0.5 MG/2 ML NEB NEB SCH ×2 (07:21→19:35)
[2022-04-13] MEDS: Mometasone 200 MCG/Formoterol 5 MCG 120 PUFF INHALER INH SCH ×2 (07:22→23:25)
[2022-04-13] MEDS: Cyproheptadine 4 MG TAB PO SCH ×2 (09:39→21:38)
[2022-04-13] MEDS: Megestrol Acetate 40 MG TAB PO SCH ×3 (09:39→21:38)
[2022-04-13] MEDS: Famotidine 20 MG TAB PO SCH (09:39)
[2022-04-13] MEDS: Losartan 25 MG TAB PO SCH (09:39)
[2022-04-13] MEDS: levETIRAcetam in NS 1,500 MG in Premix Bag 1 BAG IVPB SCH (09:42)
[2022-04-13] MEDS: methylPREDNISolone Sod Succ 40 MG VIAL IVP SCH ×2 (09:42→21:40)
[2022-04-13] MEDS: Enoxaparin Sodium 30 MG/0.3 ML SYRINGE SC SCH (10:08)
[2022-04-13] MEDS ORDERED: levETIRAcetam in NS 500 MG in Premix Bag 1 BAG IVPB SCH (11:26)
[2022-04-13] MEDS: Acetaminophen 500 MG TAB PO PRN (15:40)
[2022-04-13] MEDS: HYDROcodone/Acetaminophen 10/325 mg Tablet PO PRN (21:38)
[2022-04-13] MEDS: ALPRAZolam 1 MG TAB PO PRN (21:38)
[2022-04-13] MEDS: levETIRAcetam 500 MG/5 ML VIAL SLOW IVP SCH (21:40)
[2022-04-13] MEDS: Dextrose 5%-Lactated Ringers 1,000 ML IV SCH (21:59)
[2022-04-14] MEDS: Clindamycin/D5W 600 MG in Premix Bag 1 BAG IVPB SCH ×4 (02:47→21:14)
[2022-04-14 05:42] LABS: #Lymphocytes 0.3 thou/uL (1.20-3.40); #Monocytes 0.4 thou/uL (0.11-0.59); #Neutrophils 5.3 thou/uL (1.40-6.50); %Eosinophils 0.1 % (0.0-10.0); %Lymphocytes 4.2 % (21.0-51.0); %Monocytes 6.4 % (0.0-10.0); %Neutrophils 89.3 % (42.0-75.0); Hemoglobin 9.4 g/dL (12.0-16.0); Mean Corpuscular HGB CONC 29.2 g/dL (32.0-36.0); Mean Corpuscular Hemoglobin 30.4 pg (27.0-31.0); Mean Platelet Volume 6.8 fL (7.4-10.4); Platelet Count 199 thou/uL (130-400); RBC Distribution Width 17.5 % (11.5-14.5); Red Blood Cell (RBC) Count 3.09 mill/uL (4.20-5.40); White Blood Cell (WBC) Count 5.9 thou/uL (4.8-10.8)
[2022-04-14] MEDS: HYDROcodone/Acetaminophen 10/325 mg Tablet PO PRN ×2 (05:59→12:48)
[2022-04-14] MEDS: Levothyroxine Sodium 50 MCG TAB PO SCH (06:00)
[2022-04-14 06:42] LABS: Anion Gap 10 mmol/L (10-20); BUN (Urea Nitrogen) 12 mg/dL (9.8-20.1); Calc. Creatinine Clearance 60 mL/min (70-130); Calcium 8.6 mg/dL (7.8-10.44); Carbon Dioxide 35 mmol/L (22-29); Chloride 103 mmol/L (98-107); Glucose 173 mg/dL (70-105); Potassium 4.6 mmol/L (3.5-5.1); Sodium 143 mmol/L (136-145)
[2022-04-14] MEDS: Budesonide 0.5 MG/2 ML NEB NEB SCH ×2 (07:18→19:16)
[2022-04-14] MEDS: Mometasone 200 MCG/Formoterol 5 MCG 120 PUFF INHALER INH SCH ×2 (07:19→19:10)
[2022-04-14] MEDS: Enoxaparin Sodium 30 MG/0.3 ML SYRINGE SC SCH (10:01)
[2022-04-14] MEDS: levETIRAcetam 500 MG/5 ML VIAL SLOW IVP SCH ×2 (10:04→21:14)
[2022-04-14] MEDS: Cyproheptadine 4 MG TAB PO SCH ×2 (10:04→21:14)
[2022-04-14] MEDS: Famotidine 20 MG TAB PO SCH (10:04)
[2022-04-14] MEDS: Losartan 25 MG TAB PO SCH (10:05)
[2022-04-14] MEDS: Megestrol Acetate 40 MG TAB PO SCH ×3 (10:05→21:14)
[2022-04-14] MEDS: methylPREDNISolone Sod Succ 40 MG VIAL IVP SCH ×2 (10:05→21:14)
[2022-04-14 12:42] VITALS: BMI 13.2
[2022-04-14] MEDS: Dextrose 5%-Lactated Ringers 1,000 ML IV SCH (12:51)
[2022-04-14] MEDS: ALPRAZolam 1 MG TAB PO PRN ×2 (15:48→21:17)
[2022-04-14] MEDS: Nicotine 14 MG PATCH TOP PRN (21:14)
[2022-04-14] MEDS: Lorazepam 2 MG/ML VIAL SLOW IVP PRN (23:51)
[2022-04-15] MEDS: Dextrose 5%-Lactated Ringers 1,000 ML IV SCH ×2 (00:32→23:00)
[2022-04-15] MEDS: Clindamycin/D5W 600 MG in Premix Bag 1 BAG IVPB SCH ×4 (02:08→22:02)
[2022-04-15 05:35] LABS: Anion Gap 9 mmol/L (10-20); BUN (Urea Nitrogen) 17 mg/dL (9.8-20.1); Calc. Creatinine Clearance 64 mL/min (70-130); Calcium 9.1 mg/dL (7.8-10.44); Carbon Dioxide 35 mmol/L (22-29); Chloride 102 mmol/L (98-107); Glucose 142 mg/dL (70-105); Potassium 4.4 mmol/L (3.5-5.1); Sodium 142 mmol/L (136-145)
[2022-04-15] MEDS: HYDROcodone/Acetaminophen 10/325 mg Tablet PO PRN ×2 (05:53→13:53)
[2022-04-15] MEDS: Levothyroxine Sodium 50 MCG TAB PO SCH (05:53)
[2022-04-15 06:10] LABS: #Lymphocytes 0.4 thou/uL (1.20-3.40); #Monocytes 0.6 thou/uL (0.11-0.59); #Neutrophils 6.6 thou/uL (1.40-6.50); %Eosinophils 0.1 % (0.0-10.0); %Lymphocytes 5.7 % (21.0-51.0); %Monocytes 7.6 % (0.0-10.0); %Neutrophils 86.5 % (42.0-75.0); Hemoglobin 9.6 g/dL (12.0-16.0); Mean Corpuscular HGB CONC 29.6 g/dL (32.0-36.0); Mean Corpuscular Hemoglobin 30.5 pg (27.0-31.0); Mean Platelet Volume 6.7 fL (7.4-10.4); Platelet Count 202 thou/uL (130-400); RBC Distribution Width 17.1 % (11.5-14.5); Red Blood Cell (RBC) Count 3.15 mill/uL (4.20-5.40); White Blood Cell (WBC) Count 7.6 thou/uL (4.8-10.8)
[2022-04-15 06:11] LABS: Anisocytosis SLIGHT = 6-15 cells (100X) (0-5/hpf); MDiff Complete? YES; Ovalocytes SLIGHT = 2-5 cells (100X) (0-1/hpf)
[2022-04-15] MEDS: Mometasone 200 MCG/Formoterol 5 MCG 120 PUFF INHALER INH SCH ×2 (07:50→20:06)
[2022-04-15] MEDS: Budesonide 0.5 MG/2 ML NEB NEB SCH ×2 (07:53→20:05)
[2022-04-15] MEDS: Enoxaparin Sodium 30 MG/0.3 ML SYRINGE SC SCH (09:46)
[2022-04-15] MEDS: Megestrol Acetate 40 MG TAB PO SCH ×3 (09:48→22:03)
[2022-04-15] MEDS: Cyproheptadine 4 MG TAB PO SCH ×2 (09:48→22:03)
[2022-04-15] MEDS: Losartan 25 MG TAB PO SCH (09:48)
[2022-04-15] MEDS: Famotidine 20 MG TAB PO SCH (09:48)
[2022-04-15] MEDS: methylPREDNISolone Sod Succ 40 MG VIAL IVP SCH ×2 (09:49→22:03)
[2022-04-15] MEDS: levETIRAcetam 500 MG/5 ML VIAL SLOW IVP SCH ×2 (09:49→22:02)
[2022-04-15] MEDS: ALPRAZolam 1 MG TAB PO PRN ×2 (13:15→23:20)
[2022-04-15] MEDS: Acetaminophen 500 MG TAB PO PRN (16:49)
[2022-04-16] MEDS: HYDROcodone/Acetaminophen 10/325 mg Tablet PO PRN ×4 (00:58→20:48)
[2022-04-16] MEDS: Clindamycin/D5W 600 MG in Premix Bag 1 BAG IVPB SCH ×4 (01:00→20:46)
[2022-04-16 05:13] LABS: Hemoglobin 9.2 g/dL (12.0-16.0); Mean Corpuscular HGB CONC 29.8 g/dL (32.0-36.0); Mean Corpuscular Hemoglobin 30.6 pg (27.0-31.0); Mean Platelet Volume 6.5 fL (7.4-10.4); Platelet Count 178 thou/uL (130-400); RBC Distribution Width 16.8 % (11.5-14.5); Red Blood Cell (RBC) Count 3.01 mill/uL (4.20-5.40); White Blood Cell (WBC) Count 7.9 thou/uL (4.8-10.8)
[2022-04-16 05:25] LABS: #Lymphocytes 0.2 thou/uL (1.20-3.40); #Monocytes 0.2 thou/uL (0.11-0.59); #Neutrophils 7.5 thou/uL (1.40-6.50); %Basophils 0.2 % (0.0-1.0); %Eosinophils 0.2 % (0.0-10.0); %Lymphocytes 2.3 % (21.0-51.0); %Monocytes 2.7 % (0.0-10.0); %Neutrophils 94.6 % (42.0-75.0)
[2022-04-16 05:42] LABS: Anion Gap 10 mmol/L (10-20); BUN (Urea Nitrogen) 17 mg/dL (9.8-20.1); Calc. Creatinine Clearance 63 mL/min (70-130); Calcium 8.9 mg/dL (7.8-10.44); Carbon Dioxide 36 mmol/L (22-29); Chloride 97 mmol/L (98-107); Glucose 144 mg/dL (70-105); Sodium 138 mmol/L (136-145)
[2022-04-16] MEDS: Levothyroxine Sodium 50 MCG TAB PO SCH (05:46)
[2022-04-16] MEDS: Acetaminophen 500 MG TAB PO PRN (05:46)
[2022-04-16] MEDS: Mometasone 200 MCG/Formoterol 5 MCG 120 PUFF INHALER INH SCH ×2 (07:20→18:58)
[2022-04-16] MEDS: Budesonide 0.5 MG/2 ML NEB NEB SCH ×2 (07:21→18:57)
[2022-04-16] MEDS: Famotidine 20 MG TAB PO SCH (08:53)
[2022-04-16] MEDS: Cyproheptadine 4 MG TAB PO SCH ×2 (08:53→20:48)
[2022-04-16] MEDS: Enoxaparin Sodium 30 MG/0.3 ML SYRINGE SC SCH (08:53)
[2022-04-16] MEDS: methylPREDNISolone Sod Succ 40 MG VIAL IVP SCH ×2 (08:54→20:47)
[2022-04-16] MEDS: levETIRAcetam 500 MG/5 ML VIAL SLOW IVP SCH ×2 (08:54→20:47)
[2022-04-16] MEDS: Megestrol Acetate 40 MG TAB PO SCH ×3 (08:54→20:48)
[2022-04-16] MEDS: Losartan 25 MG TAB PO SCH (08:54)
[2022-04-16] MEDS: Nicotine 14 MG PATCH TOP PRN (09:09)
[2022-04-16] MEDS: ALPRAZolam 1 MG TAB PO PRN ×2 (11:02→20:48)
[2022-04-16 20:29] VITALS: TEMP 97.9
[2022-04-17] MEDS: Clindamycin/D5W 600 MG in Premix Bag 1 BAG IVPB SCH ×3 (02:57→14:45)
[2022-04-17] MEDS: Dextrose 5%-Lactated Ringers 1,000 ML IV SCH ×2 (02:57→14:54)
[2022-04-17] MEDS: Budesonide 0.5 MG/2 ML NEB NEB SCH (07:32)
[2022-04-17] MEDS: Mometasone 200 MCG/Formoterol 5 MCG 120 PUFF INHALER INH SCH (07:36)
[2022-04-17 08:18] VITALS: BP 91/60
[2022-04-17] MEDS: Cyproheptadine 4 MG TAB PO SCH (08:40)
[2022-04-17] MEDS: Famotidine 20 MG TAB PO SCH (08:41)
[2022-04-17] MEDS: Enoxaparin Sodium 30 MG/0.3 ML SYRINGE SC SCH (08:41)
[2022-04-17] MEDS: Losartan 25 MG TAB PO SCH (08:42)
[2022-04-17] MEDS: methylPREDNISolone Sod Succ 40 MG VIAL IVP SCH (08:42)
[2022-04-17] MEDS: Megestrol Acetate 40 MG TAB PO SCH ×2 (08:42→14:45)
[2022-04-17] MEDS: Levothyroxine Sodium 50 MCG TAB PO SCH (08:56)
[2022-04-17] MEDS: levETIRAcetam 500 MG/5 ML VIAL SLOW IVP SCH (10:13)
[2022-04-17] MEDS: HYDROcodone/Acetaminophen 10/325 mg Tablet PO PRN ×2 (12:14→18:19)
[2022-04-17] MEDS: Nicotine 14 MG PATCH TOP PRN (12:16)
[2022-04-17] MEDS: ALPRAZolam 1 MG TAB PO PRN (12:55)
== END 2022-04-17 19:00 | disposition home health service (06) | DRG 208 ==
LOC: ERS 16:39 → T4-B 19:28 → INTOOBSV 19:28 → CCU 04-10 11:11 → OBSVTOIN 04-10 11:21 → MSONC 04-13 17:24
PROVIDERS: ADMIT Family Medicine; ATTEND Hospitalist
PROC: 5A1945Z Respiratory Ventilation, 24-96 Consecutive Hours (ICD-10-PCS; principal; 2022-04-10)
PROC: 0BH18EZ Insertion of Endotracheal Airway into Trachea, Via Natural or Artificial Opening Endoscopic (ICD-10-PCS; 2022-04-10)
PROC: 0BC18ZZ Extirpation of Matter from Trachea, Via Natural or Artificial Opening Endoscopic (ICD-10-PCS; 2022-04-10)
PROC: 0CCM8ZZ Extirpation of Matter from Pharynx, Via Natural or Artificial Opening Endoscopic (ICD-10-PCS; 2022-04-10)
DX: J96.21 Acute and chronic respiratory failure with hypoxia (principal); E43 Unspecified severe protein-calorie malnutrition; G93.41 Metabolic encephalopathy; R64 Cachexia; E87.2 Acidosis; Z68.1 Body mass index [BMI] 19.9 or less, adult; T17.828A Food in other parts of respiratory tract causing other injury, initial encounter; Z20.822 Contact with and (suspected) exposure to COVID-19; J96.22 Acute and chronic respiratory failure with hypercapnia; F41.9 Anxiety disorder, unspecified; D72.829 Elevated white blood cell count, unspecified; R53.81 Other malaise; R62.7 Adult failure to thrive; J43.9 Emphysema, unspecified; J96.11 Chronic respiratory failure with hypoxia; F32.A Depression, unspecified; F17.210 Nicotine dependence, cigarettes, uncomplicated; I10 Essential (primary) hypertension; E03.9 Hypothyroidism, unspecified; G40.909 Epilepsy, unspecified, not intractable, without status epilepticus; F03.90 Unspecified dementia, unspecified severity, without behavioral disturbance, psychotic disturbance, mood disturbance, and anxiety; G43.909 Migraine, unspecified, not intractable, without status migrainosus; Z96.641 Presence of right artificial hip joint; Z98.890 Other specified postprocedural states; Z99.81 Dependence on supplemental oxygen; Z91.14 Patient's other noncompliance with medication regimen; Z85.841 Personal history of malignant neoplasm of brain; Z90.710 Acquired absence of both cervix and uterus; Z88.8 Allergy status to other drugs, medicaments and biological substances; Z79.890 Hormone replacement therapy; Z79.899 Other long term (current) drug therapy; Z79.891 Long term (current) use of opiate analgesic; Z63.5 Disruption of family by separation and divorce; Z82.49 Family history of ischemic heart disease and other diseases of the circulatory system; Z83.6 Family history of other diseases of the respiratory system
CPT/HCPCS: 36415; 36416; 36600; 71045; 80048; 80053; 80202; 82103; 82805; 83605; 85025; 87040; 87070; 87205; 93005; 93010; 94002; 94003; 94640; 96361; 96365; 96366; 96374; 96375; 96376; G0378; J1650; J1953; J1956; J2060; J2704; J2920; J2930; J3370; J3490; J7050; J7120; J7620; J7626; J7999; S0179; U0003; U0005

== ENCOUNTER 2022-05-04 08:07 | Inpatient (IN) | payer OTHER, MEDICAID ==
[2022-05-04] MEDS ORDERED: Magnesium 2 GM/50 ML BAG (IN WATER) ONE (08:56)
[2022-05-04] MEDS ORDERED: Dexamethasone 10 MG/ML VIAL ONE (08:56)
[2022-05-04 09:01] LABS: #Eosinphils 0.1 thou/uL (0.0-0.7); #Lymphocytes 0.6 thou/uL (1.20-3.40); #Monocytes 0.9 thou/uL (0.11-0.59); #Neutrophils 10.2 thou/uL (1.40-6.50); %Basophils 0.2 % (0.0-1.0); %Eosinophils 0.5 % (0.0-10.0); %Lymphocytes 5.3 % (21.0-51.0); %Neutrophils 86.1 % (42.0-75.0); Hemoglobin 10.8 g/dL (12.0-16.0); Mean Corpuscular HGB CONC 28.5 g/dL (32.0-36.0); Mean Corpuscular Hemoglobin 31.1 pg (27.0-31.0); Mean Platelet Volume 6.8 fL (7.4-10.4); Platelet Count 223 thou/uL (130-400); RBC Distribution Width 15.9 % (11.5-14.5); Red Blood Cell (RBC) Count 3.46 mill/uL (4.20-5.40); White Blood Cell (WBC) Count 11.8 thou/uL (4.8-10.8)
[2022-05-04 09:23] LABS: ALT (SGPT) 27 U/L (8-55); AST (SGOT) 17 U/L (5-34); Albumin 3.9 g/dL (3.5-5.0); Alkaline Phosphatase 70 U/L (40-110); BUN (Urea Nitrogen) 15 mg/dL (9.8-20.1); Bilirubin, Total 0.2 mg/dL (0.2-1.2); CK (CPK) 21 U/L (29-168); Calc. Creatinine Clearance 0 mL/min (70-130); Estimated GFR 103; Globulin 2.3 g/dL (2.4-3.5); Glucose 107 mg/dL (70-105); Protein, Total 6.2 g/dL (6.0-8.3)
[2022-05-04 09:30] LABS: Hypochromia SLIGHT = 6-15 cells (100X) (0-5/hpf); MDiff Complete? YES; Ovalocytes SLIGHT = 2-5 cells (100X) (0-1/hpf); Platelet Morphology Comment Appears Adequate; Polychromasia SLIGHT = 2-3 cells (100X) (0-2/hpf); Stomatocytes MODERATE= 6-15 cells (100X) (0-1/hpf)
[2022-05-04 09:33] LABS: Anion Gap 13 mmol/L (10-20); Chloride 95 mmol/L (98-107); Potassium 3.7 mmol/L (3.5-5.1); Sodium 147 mmol/L (136-145)
[2022-05-04 09:38] LABS: Carbon Dioxide 43 mmol/L (22-29)
[2022-05-04] MEDS ORDERED: Acetaminophen 500 MG TAB ONE (10:31)
[2022-05-04 11:12] LABS: Bacteria/HPF None Seen HPF (None Seen); Bilirubin Negative (Negative); Blood, Urine Negative (Negative); Clarity Clear (Clear); Glucose, Urine (Dipstick) Normal (Negative); Ketone, Urine Negative (Negative); Leukocyte 75 Leu/uL (Negative); Nitrite Negative (Negative); Protein, Urine (Dipstick) Negative (Neg-Trace); RBC/HPF 0-3 HPF (0-3); Specific Gravity, Urine 1.008 (1.002-1.036); Squamous Epithelial None Seen HPF (0-3); Urobilinogen Normal mg/dL (Less than 2)
[2022-05-04 11:21] LABS: SARS-CoV-2 NAA Rapid Test Not Detected (NotDetected)
[2022-05-04] MEDS ORDERED: HYDROcodone/Acetaminophen 5/325 mg Tablet PO PRN (11:48)
[2022-05-04] MEDS ORDERED: Ondansetron PF 4 MG/2 ML Vial IVP PRN (11:48)
[2022-05-04] MEDS ORDERED: Ondansetron ODT 4 MG TAB PO PRN (11:48)
[2022-05-04] MEDS ORDERED: Acetaminophen 500 MG TAB PO SCH (12:00)
[2022-05-04 13:35] LABS: Actual Bicarbonate (HCO3a) 41.2 mEq/L (22-28); Analyzer IN Cardio ER; Base Excess (BEa) 13.3 mEq/L (-2.0 to +3.0); Calcium, Ionized (arterial) 1.17 mmol/L (1.12-1.30); Carboxyhemoglobin (COHb) 1.7 gm% (0.0-3.0); Hemoglobin (Hb) 9.9 g/dL (12.0-16.0); O2 Tension (PaO2), arterial 78.2 mmHg (80.0-100.0); Potassium - ABG Lab 4.12 mmol/L (3.70-5.30); pH, Arterial 7.36 (7.35-7.45)
[2022-05-04 13:38] LABS: CO2 Tension 75.3 mmHg (35.0-45.0); Puncture Site LBA
[2022-05-04 13:39] LABS: ALV-art Gradient 55.835 mmHg (0-20)
[2022-05-04] MEDS: Nicotine 14 MG PATCH TD SCH (15:12)
[2022-05-04 15:18] VITALS: BMI 15.0
[2022-05-04] MEDS: ALPRAZolam 1 MG TAB PO PRN ×2 (17:36→21:30)
[2022-05-04] MEDS: methylPREDNISolone Sod Succ 40 MG VIAL IVP SCH ×2 (17:36→23:30)
[2022-05-04] MEDS ORDERED: Mometasone 100 MCG/Formoterol 5 MCG 120 PUFF INHALER INH SCH (18:30)
[2022-05-04] MEDS: Mometasone 100 MCG/PUFF (1 INHALER) INH SCH (18:34)
[2022-05-04] MEDS ORDERED: levETIRAcetam 500 MG TAB PO SCH (21:00)
[2022-05-04] MEDS ORDERED: QUETIAPINE FUMARATE 150 MG PO SCH (21:00)
[2022-05-04] MEDS: levETIRAcetam 500 MG TAB PO SCH (21:34)
[2022-05-04] MEDS: Cyproheptadine 4 MG TAB PO SCH (21:38)
[2022-05-04] MEDS ORDERED: HYDROcodone/Acetaminophen 5/325 mg Tablet PO SCH (23:59)
[2022-05-05] MEDS: methylPREDNISolone Sod Succ 40 MG VIAL IVP SCH ×3 (06:10→11:08)
[2022-05-05] MEDS: Levothyroxine Sodium 50 MCG TAB PO SCH (06:10)
[2022-05-05] MEDS: Mometasone 100 MCG/PUFF (1 INHALER) INH SCH ×2 (07:11→19:02)
[2022-05-05] MEDS: levETIRAcetam 500 MG TAB PO SCH ×2 (08:02→20:42)
[2022-05-05] MEDS: Ferrous Sulfate 325 MG TAB PO SCH (08:04)
[2022-05-05] MEDS: Cyproheptadine 4 MG TAB PO SCH ×2 (08:04→20:41)
[2022-05-05] MEDS: Losartan 25 MG TAB PO SCH (08:04)
[2022-05-05] MEDS ORDERED: Prevnar 13-Val Conj/PF 0.5 ML SYRINGE IM ONE (09:00)
[2022-05-05] MEDS ORDERED: predniSONE 20 MG TAB PO SCH ×2 (12:15→16:30)
[2022-05-05] MEDS: Nicotine 14 MG PATCH TD SCH (12:22)
[2022-05-05 13:59] LABS: Actual Bicarbonate (HCO3a) 42.5 mEq/L (22-28); Base Excess (BEa) 14.3 mEq/L (-2.0 to +3.0); Calcium, Ionized (arterial) 1.24 mmol/L (1.12-1.30); Carboxyhemoglobin (COHb) 0.9 gm% (0.0-3.0); Hemoglobin (Hb) 9.7 g/dL (12.0-16.0); O2 Tension (PaO2), arterial 84.1 mmHg (80.0-100.0); Potassium - ABG Lab 3.86 mmol/L (3.70-5.30); pH, Arterial 7.35 (7.35-7.45)
[2022-05-05] MEDS ORDERED: AcetaZOLAMIDE ER 500 MG CAP PO SCH (14:15)
[2022-05-05 14:21] LABS: CO2 Tension 79.1 mmHg (35.0-45.0); Puncture Site LBA
[2022-05-05 14:22] LABS: ALV-art Gradient 45.185 mmHg (0-20)
[2022-05-05] MEDS: Budesonide 0.25 MG/2 ML NEB INH SCH (19:01)
[2022-05-05] MEDS: Folic Acid/Vit B Comp W-C PO SCH (20:41)
[2022-05-05] MEDS: ALPRAZolam 0.5 MG TAB PO SCH (20:41)
[2022-05-05] MEDS: Acetylcysteine 10% 100 MG/ML 30 ml Vial PO SCH (22:00)
[2022-05-05] MEDS ORDERED: Loperamide HCl 2 MG CAP PO PRN (22:07)
[2022-05-06] MEDS: Levothyroxine Sodium 50 MCG TAB PO SCH (06:21)
[2022-05-06 07:03] LABS: Free T4 (Free Thyroxine) 0.72 ng/dL (0.70-1.48); Thyroid Stimulating Hormone 0.837 uIU/mL (0.35-4.94)
[2022-05-06 07:04] LABS: Vitamin D, 25 Hydroxy 25.5 ng/ml (> 30.0)
[2022-05-06] MEDS: Budesonide 0.25 MG/2 ML NEB INH SCH ×2 (07:21→18:53)
[2022-05-06] MEDS: Mometasone 100 MCG/PUFF (1 INHALER) INH SCH ×2 (07:22→19:29)
[2022-05-06 08:58] LABS: #Lymphocytes 0.9 thou/uL (1.20-3.40); #Monocytes 1.4 thou/uL (0.11-0.59); #Neutrophils 8.7 thou/uL (1.40-6.50); %Basophils 0.1 % (0.0-1.0); %Eosinophils 0.4 % (0.0-10.0); %Lymphocytes 7.8 % (21.0-51.0); %Monocytes 12.5 % (0.0-10.0); %Neutrophils 79.1 % (42.0-75.0); Hemoglobin 9.4 g/dL (12.0-16.0); Mean Corpuscular HGB CONC 30.4 g/dL (32.0-36.0); Mean Corpuscular Hemoglobin 32.1 pg (27.0-31.0); Platelet Count 220 thou/uL (130-400); Red Blood Cell (RBC) Count 2.93 mill/uL (4.20-5.40)
[2022-05-06 09:19] LABS: ALT (SGPT) 20 U/L (8-55); AST (SGOT) 12 U/L (5-34); Albumin 3.1 g/dL (3.5-5.0); Alkaline Phosphatase 57 U/L (40-110); Anion Gap 10 mmol/L (10-20); BUN (Urea Nitrogen) 17 mg/dL (9.8-20.1); Bilirubin, Total 0.2 mg/dL (0.2-1.2); Calc. Creatinine Clearance 63 mL/min (70-130); Calcium 9.6 mg/dL (7.8-10.44); Carbon Dioxide 36 mmol/L (22-29); Chloride 103 mmol/L (98-107); Estimated GFR 106; Globulin 2.1 g/dL (2.4-3.5); Magnesium 2.2 mg/dL (1.6-2.6); Protein, Total 5.2 g/dL (6.0-8.3); Sodium 145 mmol/L (136-145)
[2022-05-06 09:26] LABS: Glucose 52 mg/dL (70-105)
[2022-05-06] MEDS ORDERED: Ergocalciferol 1.25 MG(50,000 UNITS) CAP PO SCH (09:30)
[2022-05-06] MEDS ORDERED: Electrolyte Replacement Protocol FS PRN (09:30)
[2022-05-06] MEDS ORDERED: Electrolyte Replacement Protocol 1 EACH FS SCH (09:30)
[2022-05-06] MEDS ORDERED: Dextrose 5% in Water 1,000 ML IV PRN (09:56)
[2022-05-06] MEDS ORDERED: Dextrose 50% Abboject 50 ML SYRINGE SLOW IVP PRN (09:56)
[2022-05-06] MEDS: ALPRAZolam 0.5 MG TAB PO SCH ×2 (10:53→21:44)
[2022-05-06] MEDS: Folic Acid/Vit B Comp W-C PO SCH ×2 (10:53→21:44)
[2022-05-06] MEDS: Ferrous Sulfate 325 MG TAB PO SCH (10:53)
[2022-05-06] MEDS: levETIRAcetam 500 MG TAB PO SCH ×2 (10:54→21:44)
[2022-05-06] MEDS: Losartan 25 MG TAB PO SCH (10:54)
[2022-05-06] MEDS: predniSONE 20 MG TAB PO SCH (10:54)
[2022-05-06] MEDS: Cyproheptadine 4 MG TAB PO SCH ×2 (10:55→21:43)
[2022-05-06] MEDS: HYDROcodone/Acetaminophen 5/325 mg Tablet PO PRN ×2 (11:00→20:28)
[2022-05-06] MEDS: Acetylcysteine 10% 100 MG/ML 30 ml Vial PO SCH ×2 (11:55→21:44)
[2022-05-06] MEDS: Nicotine 14 MG PATCH TD SCH (15:20)
[2022-05-07] MEDS: Acetaminophen 325 MG TAB PO PRN ×2 (05:28→22:07)
[2022-05-07] MEDS: Levothyroxine Sodium 50 MCG TAB PO SCH (05:28)
[2022-05-07] MEDS: Mometasone 100 MCG/PUFF (1 INHALER) INH SCH ×2 (06:50→19:49)
[2022-05-07] MEDS: Budesonide 0.25 MG/2 ML NEB INH SCH ×2 (06:50→19:48)
[2022-05-07] MEDS: Acetylcysteine 10% 100 MG/ML 30 ml Vial PO SCH ×2 (08:34→21:11)
[2022-05-07] MEDS: Losartan 25 MG TAB PO SCH (08:35)
[2022-05-07] MEDS: Folic Acid/Vit B Comp W-C PO SCH ×2 (08:35→21:12)
[2022-05-07] MEDS: predniSONE 20 MG TAB PO SCH (08:35)
[2022-05-07] MEDS: Ferrous Sulfate 325 MG TAB PO SCH (08:35)
[2022-05-07] MEDS: Cyproheptadine 4 MG TAB PO SCH ×2 (08:35→21:12)
[2022-05-07] MEDS: ALPRAZolam 0.5 MG TAB PO SCH ×2 (08:35→21:12)
[2022-05-07] MEDS: levETIRAcetam 500 MG TAB PO SCH ×2 (08:35→21:12)
[2022-05-07] MEDS: Nicotine 14 MG PATCH TD SCH (13:45)
[2022-05-07] MEDS: Famotidine 20 MG TAB PO SCH (21:12)
[2022-05-07] MEDS ORDERED: ALPRAZolam 1 MG TAB PO SCH ×2 (21:45→22:00)
[2022-05-08] MEDS: Levothyroxine Sodium 50 MCG TAB PO SCH (05:36)
[2022-05-08] MEDS: Mometasone 100 MCG/PUFF (1 INHALER) INH SCH (07:05)
[2022-05-08] MEDS: Budesonide 0.25 MG/2 ML NEB INH SCH (07:05)
[2022-05-08] MEDS ORDERED: Azithromycin 250 MG TAB PO SCH (09:00)
[2022-05-08] MEDS: predniSONE 20 MG TAB PO SCH (09:24)
[2022-05-08] MEDS: Losartan 25 MG TAB PO SCH (09:24)
[2022-05-08] MEDS: ALPRAZolam 0.5 MG TAB PO SCH (09:24)
[2022-05-08] MEDS: Ferrous Sulfate 325 MG TAB PO SCH (09:24)
[2022-05-08] MEDS: levETIRAcetam 500 MG TAB PO SCH (09:24)
[2022-05-08] MEDS: Famotidine 20 MG TAB PO SCH (09:24)
[2022-05-08] MEDS: Cyproheptadine 4 MG TAB PO SCH (09:26)
[2022-05-08] MEDS: Acetylcysteine 10% 100 MG/ML 30 ml Vial PO SCH (09:26)
[2022-05-08 10:07] VITALS: BP 131/86
[2022-05-08] MEDS: Folic Acid/Vit B Comp W-C PO SCH (10:42)
[2022-05-08] MEDS: Nicotine 14 MG PATCH TD SCH (12:35)
[2022-05-08] MEDS ORDERED: HYDROcodone/Acetaminophen 5/325 mg Tablet PO SCH (13:00)
[2022-05-08] MEDS ORDERED: Megestrol Acetate 40 MG TAB PO SCH (15:00)
[2022-05-08 17:00] VITALS: TEMP 98
[2022-05-13] MEDS ORDERED: Ergocalciferol 1.25 MG(50,000 UNITS) CAP PO SCH (09:00)
== END 2022-05-08 17:23 | disposition home health service (06) | DRG 189 ==
LOC: SUATTDRO 08:07 → ERS 08:07 → T4-A 14:06 → OBSVTOIN 05-05 13:55
PROVIDERS: ADMIT Internal Medicine; ATTEND Internal Medicine
DX: J96.21 Acute and chronic respiratory failure with hypoxia (principal); G93.41 Metabolic encephalopathy; R64 Cachexia; E44.0 Moderate protein-calorie malnutrition; E87.0 Hyperosmolality and hypernatremia; Z68.1 Body mass index [BMI] 19.9 or less, adult; E87.3 Alkalosis; J44.1 Chronic obstructive pulmonary disease with (acute) exacerbation; J96.22 Acute and chronic respiratory failure with hypercapnia; Z20.822 Contact with and (suspected) exposure to COVID-19; G40.909 Epilepsy, unspecified, not intractable, without status epilepticus; I10 Essential (primary) hypertension; E78.5 Hyperlipidemia, unspecified; E03.9 Hypothyroidism, unspecified; F41.9 Anxiety disorder, unspecified; F32.A Depression, unspecified; E55.9 Vitamin D deficiency, unspecified; F17.210 Nicotine dependence, cigarettes, uncomplicated; Z96.641 Presence of right artificial hip joint; D64.9 Anemia, unspecified; G43.909 Migraine, unspecified, not intractable, without status migrainosus; Z87.01 Personal history of pneumonia (recurrent); Z88.8 Allergy status to other drugs, medicaments and biological substances; Z79.899 Other long term (current) drug therapy; Z79.890 Hormone replacement therapy; Z79.51 Long term (current) use of inhaled steroids; Z90.710 Acquired absence of both cervix and uterus; Z85.841 Personal history of malignant neoplasm of brain; Z83.3 Family history of diabetes mellitus; Z82.3 Family history of stroke; Z99.81 Dependence on supplemental oxygen; Z71.6 Tobacco abuse counseling
CPT/HCPCS: 36415; 36416; 36600; 70450; 71045; 74230; 80053; 81003; 81015; 82306; 82805; 83605; 83735; 83880; 84100; 84439; 84443; 84481; 84484; 85025; 87040; 87086; 87324; 87449; 93005; 94640; 96365; 96367; 96375; 96376; G0378; J1100; J1956; J2920; J3475; J7512; J7608; J7620; J7626; Q0162; S0179; U0002

== ENCOUNTER 2022-05-16 14:53 | Emergency (ER) | payer OTHER, MEDICAID ==
[2022-05-16 15:33] LABS: Bacteria/HPF None Seen HPF (None Seen); Bilirubin Negative (Negative); Blood, Urine Negative (Negative); Clarity Clear (Clear); Glucose, Urine (Dipstick) 70 mg/dL (Negative); Ketone, Urine Negative (Negative); Leukocyte Negative Leu/uL (Negative); Nitrite Negative (Negative); Protein, Urine (Dipstick) 70 mg/dL (Neg-Trace); RBC/HPF 0-3 HPF (0-3); Specific Gravity, Urine 1.021 (1.002-1.036); Squamous Epithelial 0-3 HPF (0-3); Urobilinogen Normal mg/dL (Less than 2); WBC/HPF 0-3 HPF (0-3); pH, Urine 6.5 (5.0-9.0)
[2022-05-16 15:59] LABS: ALT (SGPT) 23 U/L (8-55); AST (SGOT) 20 U/L (5-34); Albumin 3.6 g/dL (3.5-5.0); Alkaline Phosphatase 54 U/L (40-110); BUN (Urea Nitrogen) 15 mg/dL (9.8-20.1); Bilirubin, Total Less than 0.2 mg/dL (0.2-1.2); Calc. Creatinine Clearance 0 mL/min (70-130); Calcium 8.9 mg/dL (7.8-10.44); Estimated GFR 101; Globulin 2.4 g/dL (2.4-3.5); Glucose 185 mg/dL (70-105)
[2022-05-16] MEDS ORDERED: methylPREDNISolone Sod Succ/PF 125 MG/2 ML VIAL ONE (16:05)
[2022-05-16] MEDS ORDERED: Magnesium 2 GM/50 ML BAG (IN WATER) ONE (16:05)
[2022-05-16] MEDS ORDERED: Ondansetron PF 4 MG/2 ML Vial ONE (16:05)
[2022-05-16 16:09] LABS: Anion Gap 19 mmol/L (10-20); Carbon Dioxide 37 mmol/L (22-29); Chloride 93 mmol/L (98-107); Potassium 3.6 mmol/L (3.5-5.1); Sodium 145 mmol/L (136-145)
[2022-05-16 16:20] LABS: #Eosinphils 0.1 thou/uL (0.0-0.7); #Lymphocytes 0.7 thou/uL (1.20-3.40); #Monocytes 0.5 thou/uL (0.11-0.59); #Neutrophils 6.4 thou/uL (1.40-6.50); %Basophils 0.1 % (0.0-1.0); %Eosinophils 0.8 % (0.0-10.0); %Lymphocytes 8.7 % (21.0-51.0); %Monocytes 6.9 % (0.0-10.0); %Neutrophils 83.5 % (42.0-75.0); Hemoglobin 10.3 g/dL (12.0-16.0); Hypochromia SLIGHT = 6-15 cells (100X) (0-5/hpf); MDiff Complete? YES; Mean Corpuscular HGB CONC 28.5 g/dL (32.0-36.0); Mean Platelet Volume 6.9 fL (7.4-10.4); Platelet Count 272 thou/uL (130-400); Platelet Morphology Comment Appears Adequate; Polychromasia SLIGHT = 2-3 cells (100X) (0-2/hpf); RBC Distribution Width 15.3 % (11.5-14.5); Red Blood Cell (RBC) Count 3.31 mill/uL (4.20-5.40); Stomatocytes MODERATE= 6-15 cells (100X) (0-1/hpf); White Blood Cell (WBC) Count 7.7 thou/uL (4.8-10.8)
[2022-05-16 16:33] LABS: Amphetamine Not Detected (NotDetected); Barbiturates Screen Not Detected (NotDetected); Benzodiazepine Screen Detected (NotDetected); Cocaine Metabolite Screen Not Detected (NotDetected); Methadone Not Detected (NotDetected); Methamphetamine Not Detected (NotDetected); Opiate Screen Not Detected (NotDetected); Oxycodone Screen Not Detected (NotDetected); Phencyclidine (PCP) Not Detected (NotDetected); THC/Cannabinoid Screen Not Detected (NotDetected); Tricyclic Screen Detected (NotDetected)
[2022-05-16 16:49] LABS: Acetaminophen Less than 10.0 mcg/mL (10.0-30.0); Alcohol Less than 10 mg/dL (Less than 10); Salicylate 13.2 mg/dL (15.0-30.0)
[2022-05-16 16:50] LABS: Lipase 32 U/L (8-78)
== END 2022-05-16 18:42 | disposition home or self-care (01) ==
LOC: ERS 14:53
DX: U07.1 COVID-19 (principal); J44.1 Chronic obstructive pulmonary disease with (acute) exacerbation; J12.82 Pneumonia due to coronavirus disease 2019; I10 Essential (primary) hypertension; G43.909 Migraine, unspecified, not intractable, without status migrainosus; Z79.899 Other long term (current) drug therapy
CPT/HCPCS: 70450; 71045; 80306; 80307; 83690; 83735; 83880; 84484; 87040; 87077; 87086; 87149 ×2; 93005; U0003; U0005; 36415; 80053; 81003; 81015; 84443; 85025; 87186; J1956; J2405; J2930; J3475

== ENCOUNTER 2022-05-17 11:23 | Inpatient (IN) | payer OTHER, MEDICAID ==
[2022-05-17] MEDS ORDERED: Magnesium 2 GM/50 ML BAG (IN WATER) ONE (11:53)
[2022-05-17] MEDS ORDERED: Lorazepam (BATCHED) 2 MG/ML SYR ONE (12:13)
[2022-05-17] MEDS ORDERED: Vecuronium 10 MG VIAL ONE (12:21)
[2022-05-17] MEDS ORDERED: Sterile Water 10 ML ONE (12:24)
[2022-05-17] MEDS ORDERED: cefTRIAXone\\ROCEPHIN 1 GM VIAL ONE (12:26)
[2022-05-17 12:38] LABS: BUN (Urea Nitrogen) 15 mg/dL (9.8-20.1); Calc. Creatinine Clearance 0 mL/min (70-130); Carbon Dioxide Greater than 37 mmol/L (22-29); Chloride 95 mmol/L (98-107); Sodium 144 mmol/L (136-145)
[2022-05-17 12:39] LABS: ALT (SGPT) 23 U/L (8-55); AST (SGOT) 17 U/L (5-34); Albumin 3.4 g/dL (3.5-5.0); Alkaline Phosphatase 48 U/L (40-110); Bilirubin, Total 0.2 mg/dL (0.2-1.2); CK (CPK) 26 U/L (29-168); Calcium 9.5 mg/dL (7.8-10.44); Estimated GFR 103; Globulin 2.2 g/dL (2.4-3.5); Glucose 206 mg/dL (70-105); Protein, Total 5.6 g/dL (6.0-8.3)
[2022-05-17 12:55] LABS: #Lymphocytes 0.8 thou/uL (1.20-3.40); #Monocytes 0.5 thou/uL (0.11-0.59); #Neutrophils 8.3 thou/uL (1.40-6.50); %Basophils 0.3 % (0.0-1.0); %Eosinophils 0.3 % (0.0-10.0); %Lymphocytes 7.8 % (21.0-51.0); %Monocytes 5.6 % (0.0-10.0); %Neutrophils 86.1 % (42.0-75.0); Hemoglobin 9.7 g/dL (12.0-16.0); Mean Corpuscular HGB CONC 28.7 g/dL (32.0-36.0); Mean Corpuscular Hemoglobin 31.1 pg (27.0-31.0); Mean Platelet Volume 6.6 fL (7.4-10.4); Platelet Count 238 thou/uL (130-400); RBC Distribution Width 15.1 % (11.5-14.5); Red Blood Cell (RBC) Count 3.12 mill/uL (4.20-5.40); White Blood Cell (WBC) Count 9.6 thou/uL (4.8-10.8)
[2022-05-17] MEDS ORDERED: Azithromycin 500 MG VIAL ONE (13:22)
[2022-05-17 13:26] LABS: Actual Bicarbonate (HCO3a) 40.5 mEq/L (22-28); Analyzer IN Cardio ER; Base Excess (BEa) 11.7 mEq/L (-2.0 to +3.0); Calcium, Ionized (arterial) 1.24 mmol/L (1.12-1.30); Carboxyhemoglobin (COHb) 0.4 gm% (0.0-3.0); Hemoglobin (Hb) 10.1 g/dL (12.0-16.0); Potassium - ABG Lab 3.87 mmol/L (3.70-5.30); pH, Arterial 7.31 (7.35-7.45)
[2022-05-17 13:35] LABS: CO2 Tension 82.2 mmHg (35.0-45.0); Puncture Site RBA
[2022-05-17] MEDS ORDERED: Ondansetron PF 4 MG/2 ML Vial IVP PRN (13:35)
[2022-05-17] MEDS ORDERED: Enoxaparin Sodium 40 MG/0.4 ML SYRINGE SC SCH (13:45)
[2022-05-17] MEDS ORDERED: Diazepam 10 MG/2 ML SYRINGE ONE (14:27)
[2022-05-17] MEDS ORDERED: Piperacillin/Tazobactam 3.375 GM in Sodium Chloride 0.9% 100 ML IVPB SCH ×2 (15:00→18:00)
[2022-05-17] MEDS: methylPREDNISolone Sod Succ 40 MG VIAL IVP SCH ×2 (18:28→23:59)
[2022-05-17] MEDS: Piperacillin/Tazobactam 3.375 GM in Sodium Chloride 0.9% 100 ML IVPB SCH (20:28)
[2022-05-17] MEDS ORDERED: Dexamethasone 10 MG/ML VIAL SLOW IVP SCH (21:00)
[2022-05-17] MEDS ORDERED: VANCOMYCIN 1.25 GM/250 ML BAG 1.25 GM in Premix Bag 1 BAG IVPB SCH (23:27)
[2022-05-17] MEDS ORDERED: Vancomycin HCl 750 MG in Sodium Chloride 0.9% 250 ML 250 ML IVPB SCH (23:59)
[2022-05-18] MEDS ORDERED: hydrALAZINE 20 MG/ML VIAL SLOW IVP PRN (02:52)
[2022-05-18] MEDS ORDERED: OLANZapine 10 MG VIAL IM SCH (03:30)
[2022-05-18] MEDS ORDERED: Sterile Water 10 ML VIAL FS SCH (03:30)
[2022-05-18] MEDS: Piperacillin/Tazobactam 3.375 GM in Sodium Chloride 0.9% 100 ML IVPB SCH ×3 (03:33→20:24)
[2022-05-18] MEDS ORDERED: Sterile Water 10 ML ONE (03:36)
[2022-05-18] MEDS: methylPREDNISolone Sod Succ 40 MG VIAL IVP SCH ×3 (05:21→17:33)
[2022-05-18 05:33] LABS: #Lymphocytes 0.1 thou/uL (1.20-3.40); #Monocytes 0.1 thou/uL (0.11-0.59); #Neutrophils 5.8 thou/uL (1.40-6.50); %Eosinophils 0.5 % (0.0-10.0); %Lymphocytes 1.8 % (21.0-51.0); %Monocytes 2.4 % (0.0-10.0); %Neutrophils 95.3 % (42.0-75.0); Hemoglobin 8.4 g/dL (12.0-16.0); Mean Corpuscular Hemoglobin 31.4 pg (27.0-31.0); Mean Platelet Volume 7.5 fL (7.4-10.4); Platelet Count 188 thou/uL (130-400); RBC Distribution Width 15.4 % (11.5-14.5); Red Blood Cell (RBC) Count 2.66 mill/uL (4.20-5.40)
[2022-05-18 05:53] LABS: Anion Gap 15 mmol/L (10-20); BUN (Urea Nitrogen) 15 mg/dL (9.8-20.1); Calc. Creatinine Clearance 54 mL/min (70-130); Calcium 8.7 mg/dL (7.8-10.44); Carbon Dioxide 36 mmol/L (22-29); Chloride 98 mmol/L (98-107); Estimated GFR 103; Glucose 150 mg/dL (70-105); Potassium 4.1 mmol/L (3.5-5.1); Sodium 145 mmol/L (136-145)
[2022-05-18] MEDS: Pantoprazole 40 MG VIAL IVP SCH (08:56)
[2022-05-18] MEDS ORDERED: Losartan 25 MG TAB PO SCH (09:30)
[2022-05-18] MEDS ORDERED: Haloperidol Lactate 5 MG/ML VIAL IM PRN (10:01)
[2022-05-18] MEDS: Haloperidol Lactate 5 MG/ML VIAL IM PRN ×2 (11:06→20:24)
[2022-05-18] MEDS: Zinc Sulfate 220 MG CAP PO SCH (11:48)
[2022-05-18] MEDS: Cholecalciferol 1,000 UNITS (25 MCG) TAB PO SCH (11:48)
[2022-05-18] MEDS: Ascorbic Acid 500 mg Chewable Tablet PO SCH (11:48)
[2022-05-18] MEDS ORDERED: cefTRIAXone\\ROCEPHIN 1 GM in Sodium Chloride 0.9% 100 ML IVPB SCH (13:00)
[2022-05-18] MEDS: ALPRAZolam 0.25 MG TAB PO PRN ×2 (15:16→22:09)
[2022-05-19] MEDS: methylPREDNISolone Sod Succ 40 MG VIAL IVP SCH ×3 (00:23→20:08)
[2022-05-19] MEDS: Piperacillin/Tazobactam 3.375 GM in Sodium Chloride 0.9% 100 ML IVPB SCH (03:16)
[2022-05-19 05:07] LABS: #Lymphocytes 0.3 thou/uL (1.20-3.40); #Monocytes 0.3 thou/uL (0.11-0.59); #Neutrophils 6.7 thou/uL (1.40-6.50); %Eosinophils 0.2 % (0.0-10.0); %Lymphocytes 3.6 % (21.0-51.0); %Monocytes 3.5 % (0.0-10.0); %Neutrophils 92.7 % (42.0-75.0); Hemoglobin 8.7 g/dL (12.0-16.0); Mean Corpuscular HGB CONC 29.6 g/dL (32.0-36.0); Mean Corpuscular Hemoglobin 31.2 pg (27.0-31.0); Mean Platelet Volume 7.5 fL (7.4-10.4); Platelet Count 188 thou/uL (130-400); RBC Distribution Width 15.8 % (11.5-14.5); White Blood Cell (WBC) Count 7.2 thou/uL (4.8-10.8)
[2022-05-19 05:20] LABS: Anion Gap 13 mmol/L (10-20); BUN (Urea Nitrogen) 13 mg/dL (9.8-20.1); Calc. Creatinine Clearance 54 mL/min (70-130); Calcium 9.1 mg/dL (7.8-10.44); Carbon Dioxide 37 mmol/L (22-29); Chloride 97 mmol/L (98-107); Estimated GFR 103; Glucose 94 mg/dL (70-105); Sodium 143 mmol/L (136-145)
[2022-05-19] MEDS: Levothyroxine Sodium 50 MCG TAB PO SCH (05:25)
[2022-05-19] MEDS: Zinc Sulfate 220 MG CAP PO SCH (09:18)
[2022-05-19] MEDS: Cholecalciferol 1,000 UNITS (25 MCG) TAB PO SCH (09:19)
[2022-05-19] MEDS: Losartan 25 MG TAB PO SCH (09:20)
[2022-05-19] MEDS: Pantoprazole 40 MG VIAL IVP SCH (09:21)
[2022-05-19] MEDS: Ascorbic Acid 500 mg Chewable Tablet PO SCH (09:21)
[2022-05-19] MEDS ORDERED: REMDESIVIR 200 MG in Sodium Chloride 0.9% 250 ML 210 ML IV SCH ×2 (10:00→10:15)
[2022-05-19] MEDS ORDERED: ALPRAZolam 0.5 MG TAB PO SCH (10:15)
[2022-05-19] MEDS: Nicotine 14 MG PATCH TOP SCH (10:57)
[2022-05-19] MEDS: Enoxaparin Sodium 30 MG/0.3 ML SYRINGE SC SCH (10:57)
[2022-05-19] MEDS ORDERED: Albuterol 200 PUFF (6.7GM INHALER) INH PRN (11:02)
[2022-05-19] MEDS: Albuterol 200 PUFF (6.7GM INHALER) INH SCH ×3 (14:32→23:40)
[2022-05-19] MEDS: ALPRAZolam 1 MG TAB PO SCH ×2 (14:33→20:08)
[2022-05-19] MEDS ORDERED: ALPRAZolam 1 MG TAB PO SCH (15:00)
[2022-05-19] MEDS: levETIRAcetam 500 MG TAB PO SCH (20:08)
[2022-05-19] MEDS: Haloperidol Lactate 5 MG/ML VIAL IM PRN (20:09)
[2022-05-20 00:18] LABS: Vancomycin, Trough 1.4 ug/mL
[2022-05-20] MEDS: Albuterol 200 PUFF (6.7GM INHALER) INH SCH ×6 (02:43→22:22)
[2022-05-20 05:39] LABS: ALT (SGPT) 29 U/L (8-55); AST (SGOT) 23 U/L (5-34); Albumin 3.1 g/dL (3.5-5.0); Alkaline Phosphatase 43 U/L (40-110); BUN (Urea Nitrogen) 15 mg/dL (9.8-20.1); Bilirubin, Direct 0.1 mg/dL (0.1-0.3); Bilirubin, Total 0.3 mg/dL (0.2-1.2); Calc. Creatinine Clearance 61 mL/min (70-130); Calcium 9.1 mg/dL (7.8-10.44); Estimated GFR 106; Glucose 128 mg/dL (70-105)
[2022-05-20 05:45] LABS: #Lymphocytes 0.2 thou/uL (1.20-3.40); #Monocytes 0.3 thou/uL (0.11-0.59); #Neutrophils 6.3 thou/uL (1.40-6.50); %Eosinophils 0.1 % (0.0-10.0); %Lymphocytes 3.4 % (21.0-51.0); %Monocytes 4.9 % (0.0-10.0); %Neutrophils 91.6 % (42.0-75.0); Hemoglobin 8.9 g/dL (12.0-16.0); Mean Corpuscular HGB CONC 28.6 g/dL (32.0-36.0); Mean Corpuscular Hemoglobin 30.6 pg (27.0-31.0); Mean Platelet Volume 7.1 fL (7.4-10.4); Platelet Count 197 thou/uL (130-400); RBC Distribution Width 15.8 % (11.5-14.5); Red Blood Cell (RBC) Count 2.91 mill/uL (4.20-5.40); White Blood Cell (WBC) Count 6.8 thou/uL (4.8-10.8)
[2022-05-20 05:49] LABS: Anion Gap 15 mmol/L (10-20); Carbon Dioxide 38 mmol/L (22-29); Chloride 98 mmol/L (98-107); Sodium 147 mmol/L (136-145)
[2022-05-20] MEDS ORDERED: Mometasone/Formoterol 200/5 60 PUFF INH SCH (06:30)
[2022-05-20] MEDS: Levothyroxine Sodium 50 MCG TAB PO SCH (06:51)
[2022-05-20] MEDS: REMDESIVIR 100 MG in Sodium Chloride 0.9% 250 ML 230 ML IV SCH (09:09)
[2022-05-20] MEDS: levETIRAcetam 500 MG TAB PO SCH ×2 (09:10→20:59)
[2022-05-20] MEDS: Cholecalciferol 1,000 UNITS (25 MCG) TAB PO SCH (09:10)
[2022-05-20] MEDS: ALPRAZolam 1 MG TAB PO SCH ×3 (09:10→20:59)
[2022-05-20] MEDS: Losartan 25 MG TAB PO SCH (09:11)
[2022-05-20] MEDS: Zinc Sulfate 220 MG CAP PO SCH (09:11)
[2022-05-20] MEDS: Ascorbic Acid 500 mg Chewable Tablet PO SCH (09:11)
[2022-05-20] MEDS: Enoxaparin Sodium 30 MG/0.3 ML SYRINGE SC SCH (09:12)
[2022-05-20] MEDS: Pantoprazole 40 MG VIAL IVP SCH (09:12)
[2022-05-20] MEDS: methylPREDNISolone Sod Succ 40 MG VIAL IVP SCH ×2 (09:12→21:00)
[2022-05-20] MEDS: Nicotine 14 MG PATCH TOP SCH (09:31)
[2022-05-20] MEDS ORDERED: REMDESIVIR 100 MG in Sodium Chloride 0.9% 250 ML 230 ML IV SCH (10:00)
[2022-05-20] MEDS ORDERED: Ipratropium Oral Inhaler INH PRN (13:26)
[2022-05-20] MEDS: Mometasone 200 MCG/Formoterol 5 MCG 120 PUFF INHALER INH SCH (18:26)
[2022-05-20] MEDS ORDERED: HYDROcodone/Acetaminophen 5/325 mg Tablet PO SCH ×2 (21:00→22:15)
[2022-05-20] MEDS: Haloperidol Lactate 5 MG/ML VIAL IM PRN (22:30)
[2022-05-21] MEDS: Albuterol 200 PUFF (6.7GM INHALER) INH SCH ×6 (02:04→23:19)
[2022-05-21 06:06] LABS: BUN (Urea Nitrogen) 18 mg/dL (9.8-20.1); Calc. Creatinine Clearance 60 mL/min (70-130); Calcium 9.7 mg/dL (7.8-10.44); Estimated GFR 106; Glucose 175 mg/dL (70-105)
[2022-05-21 06:15] LABS: Anion Gap 13 mmol/L (10-20); Chloride 91 mmol/L (98-107); Potassium 4.6 mmol/L (3.5-5.1); Sodium 142 mmol/L (136-145)
[2022-05-21] MEDS: Levothyroxine Sodium 50 MCG TAB PO SCH (06:17)
[2022-05-21] MEDS: Mometasone 200 MCG/Formoterol 5 MCG 120 PUFF INHALER INH SCH ×2 (06:17→19:34)
[2022-05-21 06:20] LABS: Carbon Dioxide 43 mmol/L (22-29)
[2022-05-21 06:21] LABS: #Lymphocytes 0.1 thou/uL (1.20-3.40); #Monocytes 0.1 thou/uL (0.11-0.59); #Neutrophils 8.2 thou/uL (1.40-6.50); %Basophils 0.4 % (0.0-1.0); %Eosinophils 0.2 % (0.0-10.0); %Lymphocytes 1.3 % (21.0-51.0); %Monocytes 1.3 % (0.0-10.0); %Neutrophils 96.7 % (42.0-75.0); Hemoglobin 9.6 g/dL (12.0-16.0); Mean Corpuscular HGB CONC 28.4 g/dL (32.0-36.0); Mean Corpuscular Hemoglobin 30.9 pg (27.0-31.0); Mean Platelet Volume 6.9 fL (7.4-10.4); Platelet Count 217 thou/uL (130-400); RBC Distribution Width 15.1 % (11.5-14.5); Red Blood Cell (RBC) Count 3.11 mill/uL (4.20-5.40); White Blood Cell (WBC) Count 8.5 thou/uL (4.8-10.8)
[2022-05-21] MEDS: ALPRAZolam 1 MG TAB PO SCH ×3 (08:09→19:33)
[2022-05-21] MEDS: Zinc Sulfate 220 MG CAP PO SCH (08:09)
[2022-05-21] MEDS: Ascorbic Acid 500 mg Chewable Tablet PO SCH (08:09)
[2022-05-21] MEDS: Cholecalciferol 1,000 UNITS (25 MCG) TAB PO SCH (08:09)
[2022-05-21] MEDS: levETIRAcetam 500 MG TAB PO SCH ×2 (08:09→19:32)
[2022-05-21] MEDS: Losartan 25 MG TAB PO SCH (08:09)
[2022-05-21] MEDS: Nicotine 14 MG PATCH TOP SCH (08:10)
[2022-05-21] MEDS: methylPREDNISolone Sod Succ 40 MG VIAL IVP SCH (08:10)
[2022-05-21] MEDS: Enoxaparin Sodium 30 MG/0.3 ML SYRINGE SC SCH (08:10)
[2022-05-21] MEDS: Pantoprazole 40 MG VIAL IVP SCH (08:10)
[2022-05-21] MEDS: REMDESIVIR 100 MG in Sodium Chloride 0.9% 250 ML 230 ML IV SCH (15:56)
[2022-05-21] MEDS: Acetaminophen 325 MG TAB PO PRN (19:33)
[2022-05-21] MEDS ORDERED: methylPREDNISolone Sod Succ 40 MG VIAL IVP SCH (21:00)
[2022-05-22] MEDS: Albuterol 200 PUFF (6.7GM INHALER) INH SCH ×6 (03:38→22:15)
[2022-05-22] MEDS: Acetaminophen 325 MG TAB PO PRN (05:06)
[2022-05-22] MEDS: Levothyroxine Sodium 50 MCG TAB PO SCH (05:07)
[2022-05-22] MEDS: Mometasone 200 MCG/Formoterol 5 MCG 120 PUFF INHALER INH SCH ×2 (05:59→18:38)
[2022-05-22 06:49] LABS: BUN (Urea Nitrogen) 17 mg/dL (9.8-20.1); Calc. Creatinine Clearance 65 mL/min (70-130); Calcium 9.6 mg/dL (7.8-10.44); Estimated GFR 109; Glucose 92 mg/dL (70-105)
[2022-05-22 06:58] LABS: Anion Gap 14 mmol/L (10-20); Chloride 88 mmol/L (98-107); Potassium 4.5 mmol/L (3.5-5.1); Sodium 143 mmol/L (136-145)
[2022-05-22 07:01] LABS: Carbon Dioxide 46 mmol/L (22-29)
[2022-05-22 08:35] VITALS: BMI 12.2
[2022-05-22 08:45] LABS: #Lymphocytes 0.7 thou/uL (1.20-3.40); #Monocytes 0.9 thou/uL (0.11-0.59); #Neutrophils 10.3 thou/uL (1.40-6.50); %Basophils 0.1 % (0.0-1.0); %Eosinophils 0.1 % (0.0-10.0); %Lymphocytes 5.9 % (21.0-51.0); %Monocytes 7.7 % (0.0-10.0); %Neutrophils 86.1 % (42.0-75.0); Hemoglobin 9.8 g/dL (12.0-16.0); MDiff Complete? YES; Mean Corpuscular HGB CONC 28.7 g/dL (32.0-36.0); Mean Corpuscular Hemoglobin 31.2 pg (27.0-31.0); Platelet Count 211 thou/uL (130-400); Platelet Morphology Comment Appears Adequate; Polychromasia SLIGHT = 2-3 cells (100X) (0-2/hpf); RBC Distribution Width 15.3 % (11.5-14.5); Red Blood Cell (RBC) Count 3.15 mill/uL (4.20-5.40); White Blood Cell (WBC) Count 11.9 thou/uL (4.8-10.8)
[2022-05-22] MEDS: levETIRAcetam 500 MG TAB PO SCH ×2 (08:56→20:11)
[2022-05-22] MEDS: Ascorbic Acid 500 mg Chewable Tablet PO SCH (08:57)
[2022-05-22] MEDS: Cholecalciferol 1,000 UNITS (25 MCG) TAB PO SCH (08:58)
[2022-05-22] MEDS: Zinc Sulfate 220 MG CAP PO SCH (08:59)
[2022-05-22] MEDS: Losartan 25 MG TAB PO SCH (08:59)
[2022-05-22] MEDS: methylPREDNISolone Sod Succ 40 MG VIAL IVP SCH (09:00)
[2022-05-22] MEDS: ALPRAZolam 1 MG TAB PO SCH ×3 (09:00→20:11)
[2022-05-22] MEDS: Pantoprazole 40 MG VIAL IVP SCH (09:00)
[2022-05-22] MEDS: REMDESIVIR 100 MG in Sodium Chloride 0.9% 250 ML 230 ML IV SCH (09:01)
[2022-05-22] MEDS: Enoxaparin Sodium 30 MG/0.3 ML SYRINGE SC SCH (09:01)
[2022-05-22] MEDS: Nicotine 14 MG PATCH TOP SCH (09:56)
[2022-05-22] MEDS: acetaZOLAMIDE Sodium 500 mg Vial IVP SCH (11:22)
[2022-05-22] MEDS: Acetaminophen/Codeine 30-300mg Tablet PO PRN (20:10)
[2022-05-23] MEDS: Albuterol 200 PUFF (6.7GM INHALER) INH SCH ×4 (03:07→14:16)
[2022-05-23] MEDS: Levothyroxine Sodium 50 MCG TAB PO SCH (05:35)
[2022-05-23] MEDS: Acetaminophen/Codeine 30-300mg Tablet PO PRN ×2 (05:35→10:47)
[2022-05-23] MEDS: Mometasone 200 MCG/Formoterol 5 MCG 120 PUFF INHALER INH SCH (06:24)
[2022-05-23 07:05] LABS: #Lymphocytes 0.7 thou/uL (1.20-3.40); #Monocytes 0.8 thou/uL (0.11-0.59); #Neutrophils 5.8 thou/uL (1.40-6.50); %Basophils 0.2 % (0.0-1.0); %Eosinophils 0.2 % (0.0-10.0); %Lymphocytes 9.4 % (21.0-51.0); %Monocytes 10.4 % (0.0-10.0); %Neutrophils 79.8 % (42.0-75.0); Hemoglobin 9.8 g/dL (12.0-16.0); Mean Corpuscular HGB CONC 28.5 g/dL (32.0-36.0); Mean Corpuscular Hemoglobin 30.8 pg (27.0-31.0); Mean Platelet Volume 7.1 fL (7.4-10.4); Platelet Count 204 thou/uL (130-400); RBC Distribution Width 15.3 % (11.5-14.5); Red Blood Cell (RBC) Count 3.18 mill/uL (4.20-5.40); White Blood Cell (WBC) Count 7.3 thou/uL (4.8-10.8)
[2022-05-23 07:17] LABS: BUN (Urea Nitrogen) 13 mg/dL (9.8-20.1); Calc. Creatinine Clearance 57 mL/min (70-130); Calcium 9.4 mg/dL (7.8-10.44); Estimated GFR 105; Glucose 129 mg/dL (70-105)
[2022-05-23 07:26] LABS: Anion Gap 11 mmol/L (10-20); Chloride 95 mmol/L (98-107); Potassium 4.3 mmol/L (3.5-5.1); Sodium 145 mmol/L (136-145)
[2022-05-23 07:31] LABS: Carbon Dioxide 43 mmol/L (22-29)
[2022-05-23] MEDS ORDERED: Sterile Water 10 ML ONE (07:53)
[2022-05-23 08:22] VITALS: BP 112/69; TEMP 98.3
[2022-05-23 08:22] LABS: MDiff Complete? YES; Macrocytosis SLIGHT = 6-15 cells (100X) (0-5/hpf); Ovalocytes SLIGHT = 2-5 cells (100X) (0-1/hpf); Platelet Morphology Comment Appears Adequate; Polychromasia SLIGHT = 2-3 cells (100X) (0-2/hpf)
[2022-05-23] MEDS: REMDESIVIR 100 MG in Sodium Chloride 0.9% 250 ML 230 ML IV SCH (08:22)
[2022-05-23] MEDS: Enoxaparin Sodium 30 MG/0.3 ML SYRINGE SC SCH (08:23)
[2022-05-23] MEDS: Cholecalciferol 1,000 UNITS (25 MCG) TAB PO SCH (08:24)
[2022-05-23] MEDS: methylPREDNISolone Sod Succ 40 MG VIAL IVP SCH (08:24)
[2022-05-23] MEDS: levETIRAcetam 500 MG TAB PO SCH (08:24)
[2022-05-23] MEDS: Zinc Sulfate 220 MG CAP PO SCH (08:25)
[2022-05-23] MEDS: Losartan 25 MG TAB PO SCH (08:25)
[2022-05-23] MEDS: ALPRAZolam 1 MG TAB PO SCH ×2 (08:25→16:17)
[2022-05-23] MEDS: Ascorbic Acid 500 mg Chewable Tablet PO SCH (08:25)
[2022-05-23] MEDS: acetaZOLAMIDE Sodium 500 mg Vial IVP SCH (08:26)
[2022-05-23] MEDS: Nicotine 14 MG PATCH TOP SCH (08:27)
[2022-05-23] MEDS: Pantoprazole 40 MG VIAL IVP SCH (08:27)
== END 2022-05-23 17:20 | disposition home or self-care (01) | DRG 177 ==
LOC: ERS 11:23 → CCU 13:26 → IMCU/EMU 05-19 11:45 → T4-A 05-21 18:56
PROVIDERS: ADMIT Internal Medicine; ATTEND Internal Medicine
PROC: 8E0ZXY6 Isolation (ICD-10-PCS; principal; 2022-05-17)
PROC: XW033E5 Introduction of Remdesivir Anti-infective into Peripheral Vein, Percutaneous Approach, New Technology Group 5 (ICD-10-PCS; 2022-05-18)
DX: U07.1 COVID-19 (principal); J96.21 Acute and chronic respiratory failure with hypoxia; J96.22 Acute and chronic respiratory failure with hypercapnia; E43 Unspecified severe protein-calorie malnutrition; G93.41 Metabolic encephalopathy; J12.82 Pneumonia due to coronavirus disease 2019; Z68.1 Body mass index [BMI] 19.9 or less, adult; J43.9 Emphysema, unspecified; G43.909 Migraine, unspecified, not intractable, without status migrainosus; G40.909 Epilepsy, unspecified, not intractable, without status epilepticus; I10 Essential (primary) hypertension; Z96.641 Presence of right artificial hip joint; E03.9 Hypothyroidism, unspecified; F17.210 Nicotine dependence, cigarettes, uncomplicated; F41.9 Anxiety disorder, unspecified; F32.A Depression, unspecified; Z90.710 Acquired absence of both cervix and uterus; Z88.8 Allergy status to other drugs, medicaments and biological substances; Z88.6 Allergy status to analgesic agent; Z79.890 Hormone replacement therapy; Z78.1 Physical restraint status; Z91.19 Patient's noncompliance with other medical treatment and regimen; Z99.81 Dependence on supplemental oxygen; Z79.899 Other long term (current) drug therapy
CPT/HCPCS: 36415; 36416; 36600; 51701; 70450; 71045; 80048; 80053; 80076; 80202; 80306; 80307; 81003; 81015; 82550; 82805; 83605; 83690; 83735; 83880; 84443; 84484; 85025; 87040; 87077; 87081; 87086; 87149; 87186; 93005; 94640; 94660; 96365; 96366; 96368; 96375; C9113; J0248; J0456; J0696; J1120; J1630; J1650; J1956; J2060; J2358; J2405; J2543; J2920; J2930; J3360; J3370; J3475; J3490; J7050; J7620; U0003; U0005